=== PATIENT | female | born 1970 | race Caucasian/White ===

== ENCOUNTER → 2017-05-28 | Outpatient (CLI) | payer BC ==
[~2017-05-28] MED LIST: CYAN10005 PO; GABA-586 PO; NALT1TAB PO
--- NOTE | 2017-05-29 00:22 | PAIN ---
DATE OF SERVICE: 05/28/2017 INITIAL CONSULTATION CHIEF COMPLAINT: Neck and left upper extremity pain. HISTORY OF PRESENT ILLNESS: This is a 46-year-old female who presents with history of pain in the base of the neck and left shoulder for about 3 months now without any specific injury or accident she is aware of, but this became more painful as time went on starting in February of this year. The patient reports an increased pain in the base of the neck and in the bilateral shoulders, but in more than the left, radiating to the left arm, mostly anterior in the biceps and anterior forearm into the hand with all the fingers as well with numbness and tingling in the arm, intermittent in intensity, but always present with pain in the shoulder and neck; tingling and numbness in the left arm, aching quality as well with radiating pain on the left side. The patient reports no right-sided symptoms, reports it does not awaken her from sleep at night, does not affect her bowel or bladder control or ability to walk. She has been taking gabapentin, Lortab, naproxen; Lortab helps the most, but she has not had any for about 2-3 weeks. The patient reports no loss of motor function, but occasional fatigability in the left arm with activity. The patient did have an MRI scan of the cervical spine on 04/26/2017 showing C6-C7 broad-based disk extrusion with superior ____ in the ventral thecal sac with foraminal disk component, which results in moderate left greater than right stenosis. 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 PAST MEDICAL HISTORY: Significant for arthritis history, exercise-induced asthma, otherwise the patient has been in good health. PREVIOUS SURGERY: Includes total abdominal hysterectomy in 1984. CURRENT MEDICATIONS: Include vitamin B12, gabapentin and Contrave. ALLERGIES: The patient has no known drug allergies. FAMILY HISTORY: Significant for diabetes. 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 REVIEW OF SYSTEMS: The patient's review of systems is positive for those items mentioned in history of present illness. All systems reviewed and otherwise negative. It is complete, full and well documented on the patient's chart. PHYSICAL EXAMINATION: VITAL SIGNS: The patient's blood pressure is 122/84, pulse 70, respirations 18, temperature 98.1 degrees Fahrenheit, height is 5 feet 1 inch. Weight is 182 pounds. GENERAL: The patient is awake, alert, oriented, appropriate, very pleasant demeanor. HEENT: Head shows normocephalic, atraumatic. Extraocular movements are intact and symmetrical. Oral cavity, mucous membranes are moist and pink. Dentition is intact. NECK: Shows anterior throat supple without palpable lymphadenopathy noted. Swallow reflex is symmetrical. CHEST: Shows normal on inspection. Breath sounds are clear to auscultation bilaterally. HEART: Shows S1 and S2 clear. ABDOMEN: Soft, nontender, nondistended. No palpable organomegaly. No rebound or guarding demonstrated. BACK: Shows spine grossly midline. Normal appearing thoracic kyphosis, lumbar lordotic curvature and cervical lordotic curvature of the cervical paraspinous musculature shows some moderate tenderness with palpation, but only diffusely in the inferior aspect of the cervical paraspinous muscles as well as in the superior medial trapezius and lateral trapezius on the left and only the superior aspect on the right, but no trigger points or radiation of pain. The patient has full rotational motion of cervical spine, both laterally as well as extension and flexion with some minor tenderness reported with far left lateral rotation and extension at the same time, but not with forward flexion. Upper extremity showed deep tendon reflexes 2+ in the biceps and triceps tendons are equal. 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 Motor exam is intact with shoulder shrug as well without loss of strength on resistance. Abduction of shoulder 90 degrees is intact without loss of strength on resistance as well with some minor pain reported in the base of the left shoulder, but no radiation into the left arm with this maneuver. Peripheral pulses are 2+ in the radial distribution. No peripheral edema is noted. No clubbing or cyanosis. Upper extremities are warm and dry to touch, equal in color and appearance. IMPRESSION: 1. This is a 46-year-old female with a 3-month history of pain, base of the neck, left upper extremity in a radicular fashion. 2. MRI scan of cervical spine as noted. 3. History of arthritis. PLAN: Options were discussed with the patient including conservative medical management, physical therapy, interventional techniques and she would like to pursue most conservative course at this time. We discussed physical therapy renewal what she has done several sessions already. We will make the arrangements for this and send orders for renewal physical therapy. We discussed that if not significantly improved after about 3-week period of consistent physical therapy, may return for potential cervical epidural steroid injection at that time. The patient is interested in pursuing this if not better, we will make those arrangements and have her follow up at that time if necessary. LETTY KAUFMAN MD DR: KELECHI/woody JOB#: [id number] / [id number]
== END | disposition home or self-care (01) ==
LOC: PNCL 11:03
PROVIDERS: ATTEND Anesthesiology
DX: M50.30 Other cervical disc degeneration, unspecified cervical region (principal)
CPT/HCPCS: 99214

== ENCOUNTER 2020-01-15 13:03 | Inpatient (IN) | payer BC ==
[~2020-01-15] VITALS: Ht 154.9 cm; Wt 90.1 kg
[~2020-01-15 13:03] MED LIST changes: +CYAN-25 PO; -CYAN10005 PO; -GABA-586 PO; +GABA300C18 PO
--- NOTE | 2020-01-15 13:38 | RAD ---
CHEST AP ONLY History: Shortness of breath. COVID positive Comparison: None. Findings: Patchy left mid and bibasilar opacities. No pneumothorax. No pleural effusion. Normal heart size. Impression: 1. Patchy left mid and bibasilar opacities, can be seen with viral pneumonia. Electronically signed by: Andrzej Wallis DO (01/15/2020 1:35 PM) [id number]
[2020-01-15 13:48] LABS: BASO % 0 % (0-3); EOS % 0 % (0-3); HEMATOCRIT 41.6 % (36.0-47.0); HEMOGLOBIN 13.8 g/dL (12.0-15.5); LYMPH # 0.8 x10^3/uL (1.0-4.8); LYMPH % 11 % (24-48); MEAN CORPUSCULAR HEMOGLOBIN 28 pg (25-35); MEAN CORPUSCULAR HGB CONC 33 g/dL (31-37); MEAN CORPUSCULAR VOLUME 86 fL (79-100); MONO # 0.5 x10^3/uL (0.0-1.1); MONO % 7 % (0-9); NEUT # 5.8 x10^3/uL (1.8-7.7); NEUT % 82 % (31-73); PLATELET COUNT 316 x10^3/uL (140-400); RED BLOOD COUNT 4.86 x10^6/uL (3.50-5.40); RED CELL DISTRIBUTION WIDTH 14.1 % (11.5-14.5); WHITE BLOOD COUNT 7.1 x10^3/uL (4.0-11.0)
[2020-01-15 14:27] LABS: CALCIUM 8.4 mg/dL (8.5-10.1); CREATININE 0.8 mg/dL (0.6-1.0); GFR 76.2; POTASSIUM 3.7 mmol/L (3.5-5.1)
[2020-01-15 14:41] LABS: ALBUMIN 3.3 g/dL (3.4-5.0); ALBUMIN/GLOBULIN RATIO 0.9 (1.0-1.7); TOTAL BILIRUBIN 0.2 mg/dL (0.2-1.0); TOTAL PROTEIN 6.8 g/dL (6.4-8.2)
--- NOTE | 2020-01-15 14:42 | PHYS DOC ---
Past Medical History Past Medical History: Asthma, Other Additional Past Medical Histor: + COVID-19 Past Surgical History: Hysterectomy, Other Additional Past Surgical Histo: D&C Smoking Status: Never Smoker Alcohol Use: None Adult General Chief Complaint Chief Complaint: SHORTNESS OF BREATH HPI HPI Patient is a 49 year old presents with a chief complaint of shortness of b reath. Patient states she was diagnosed with covid 19 on January 08. Symptoms included body aches and fever. Patient was tested at [facility] on the and + test resulted on the . Today patient states she started to feel short of breath. Review of Systems Review of Systems Constitutional: Positive fever Eyes: Denies change in visual acuity, redness, or eye pain [] HENT: Denies nasal congestion or sore throat [] Respiratory: Positive shortness of breath Cardiovascular: No additional information not addressed in HPI [] GI: Denies abdominal pain, nausea, vomiting, bloody stools or diarrhea [] : Denies dysuria or hematuria [] Musculoskeletal: Denies back pain or joint pain [] Integument: Denies rash or skin lesions [] Neurologic: Denies headache, focal weakness or sensory changes [] Endocrine: Denies polyuria or polydipsia [] All other systems were reviewed and found to be within normal limits, except as documented in this note. Allergies Allergies Allergies Coded Allergies Type Severity Reaction Last Updated Verified No Known Drug Allergies 05/28/17 No Physical Exam Physical Exam Constitutional: Well developed, well nourished, no acute distress, non-toxic appearance. [] HENT: Normocephalic, atraumatic, bilateral external ears normal, oropharynx moist, no oral exudates, nose normal. [] Eyes: PERRLA, EOMI, conjunctiva normal, no discharge. [] Neck: Normal range of motion, no tenderness, supple, no stridor. [] Cardiovascular:Heart rate regular rhythm, no murmur [] Lungs & Thorax: Bilateral breath sounds clear to auscultation [] Abdomen: Bowel sounds normal, soft, no tenderness, no masses, no pulsatile masses. [] Skin: Warm, dry, no erythema, no rash. [] Back: No tenderness, no CVA tenderness. [] Extremities: No tenderness, no cyanosis, no clubbing, ROM intact, no edema. [] Neurologic: Alert and oriented X 3, normal motor function, normal sensory function, no focal deficits noted. [] Psychologic: Affect normal, judgement normal, mood normal. [] Current Patient Data Vital Signs Vital Signs Date Time Temp Pulse Resp B/P (MAP) Pulse Ox O2 Delivery O2 Flow Rate FiO2 01/15/20 14:55 102 108/64 (79) 93 Nasal Cannula 2.0 01/15/20 13:13 99.3 21 99.3 Lab Values Laboratory Tests Test 01/15/20 13:36 01/15/20 14:11 White Blood Count 7.1 x10^3/uL (4.0-11.0) Red Blood Count 4.86 x10^6/uL (3.50-5.40) Hemoglobin 13.8 g/dL (12.0-15.5) Hematocrit 41.6 % (36.0-47.0) Mean Corpuscular Volume 86 fL (79-100) Mean Corpuscular Hemoglobin 28 pg (25-35) Mean Corpuscular Hemoglobin Concent 33 g/dL (31-37) Red Cell Distribution Width 14.1 % (11.5-14.5) Platelet Count 316 x10^3/uL (140-400) Neutrophils (%) (Auto) 82 % (31-73) H Lymphocytes (%) (Auto) 11 % (24-48) L Monocytes (%) (Auto) 7 % (0-9) Eosinophils (%) (Auto) 0 % (0-3) Basophils (%) (Auto) 0 % (0-3) Neutrophils # (Auto) 5.8 x10^3/uL (1.8-7.7) Lymphocytes # (Auto) 0.8 x10^3/uL (1.0-4.8) L Monocytes # (Auto) 0.5 x10^3/uL (0.0-1.1) Eosinophils # (Auto) 0.0 x10^3/uL (0.0-0.7) Basophils # (Auto) 0.0 x10^3/uL (0.0-0.2) Sodium Level 138 mmol/L (136-145) Potassium Level 3.7 mmol/L (3.5-5.1) Chloride Level 103 mmol/L (98-107) Carbon Dioxide Level 24 mmol/L (21-32) Anion Gap 11 (6-14) Blood Urea Nitrogen 8 mg/dL (7-20) Creatinine 0.8 mg/dL (0.6-1.0) Estimated GFR (Cockcroft-Gault) 76.2 BUN/Creatinine Ratio 10 (6-20) Glucose Level 112 mg/dL (70-99) H Calcium Level 8.4 mg/dL (8.5-10.1) L Total Bilirubin 0.2 mg/dL (0.2-1.0) Aspartate Amino Transferase (AST) 66 U/L (15-37) H Alanine Aminotransferase (ALT) 60 U/L (14-59) H Alkaline Phosphatase 94 U/L (46-116) Total Protein 6.8 g/dL (6.4-8.2) Albumin 3.3 g/dL (3.4-5.0) L Albumin/Globulin Ratio 0.9 (1.0-1.7) L Laboratory Tests 01/15/20 13:36 Laboratory Tests 01/15/20 14:11 EKG EKG [] Radiology/Procedures Radiology/Procedures [] Impressions: Impression: 1. Patchy left mid and bibasilar opacities, can be seen with viral pneumonia. Course & Med Decision Making Course & Med Decision Making Pertinent Labs and Imaging studies reviewed. (See chart for details) [] Patient was evaluated for chief complaint. Work-up consisted of laboratory analysis and radiologic imaging. Results reviewed and discussed with patient. Patient tested positive for covid at [facility]. Patient admitted to Dr. Harris with a consult to pulmonology. Discussed patient with Dr Norris who recommends treatment with Rocphin Zithromax and Plaquenil. Dragon Disclaimer Dragon Disclaimer This electronic medical record was generated, in whole or in part, using a voice recognition dictation system. Departure Departure Referrals: UNKNOWN PCP NAME (PCP) KATHY SALEH DO Jan 15, 2020 14:42
--- NOTE | 2020-01-15 14:47 | PDOC1 ---
History and Physical Date of Admission Date of Admission DATE: 01/15/20 TIME: 14:47 Identification/Chief Complaint Chief Complaint seen in er with chief complaint of shortness of breath. at [facility] she was diagnosed with covid 19 on January 08. Symptoms included body aches and fever. Patient was tested at [facility] on the and + test resulted on the . Today patient states she started to feel short of breath. Past Medical History Past Medical History Past Medical History Past Medical History: Asthma, Other Additional Past Medical Histor: + COVID-19 Past Surgical History: Hysterectomy, Other Additional Past Surgical Histo: D&C Smoking Status: Never Smoker Alcohol Use: None fhx obesity GI: No pertinent hx Family History Family History: Hypertension Social History Smoke: No ALCOHOL: none Drugs: None Current Medications Current Medications Active Scripts Active Reported Vitamin B-12 (Cyanocobalamin (Vitamin B-12)) 1,000 Mcg Tablet 1 Tab PO WEEKLY Gabapentin 300 Mg Capsule 300 Mg PO HS Contrave ER 8-90 mg Tablet (Naltrexone HCl/Bupropion HCl) 1 Each Tablet.er 2 Each PO BID Allergies Allergies: Coded Allergies: No Known Drug Allergies (Unverified , 05/28/17) ROS Review of System Review of Systems Review of Systems Constitutional: Denies fever or chills [] POS MYALGIAS Eyes: Denies change in visual acuity, redness, or eye pain [] HENT: Denies nasal congestion or sore throat [] Respiratory: POS shortness of breath [] Cardiovascular: No additional information not addressed in HPI [] GI: Denies abdominal pain, nausea, vomiting, bloody stools or diarrhea [] : Denies dysuria or hematuria [] Musculoskeletal: Denies back pain or joint pain [] Integument: Denies rash or skin lesions [] Neurologic: Denies headache, focal weakness or sensory changes [] Endocrine: Denies polyuria or polydipsia [] 14 PT systems were reviewed and found to be within normal limits, except as documented General: YES: Fatigue ALLERGY AND IMMUNOLOGY: No: Hives, Insect Bite Sensitivity, Itchy/Watery Eyes, Nasal Congestion, Post Nasal Drip, Seasonal Allergies, Other Hematological and Lymphatic: No: Bleeding Problems, Blood Clots, Blood Transfusions, Brusing, Night Sweats, Pallor, Swollen Lymph Nodes, Other Physical Exam Physical Exam Physical Exam Physical Exam Constitutional: Well developed, well nourished, no acute distress, non-toxic appearance. [] OBESE HENT: Normocephalic, atraumatic, bilateral external ears normal, oropharynx moist, no oral exudates, nose normal. [] Eyes: PERRLA, EOMI, conjunctiva normal, no discharge. [] Neck: Normal range of motion, no tenderness, supple, no stridor. [] Cardiovascular:Heart rate regular rhythm, no murmur [] Lungs & Thorax: Bilateral breath sounds clear to auscultation [] Abdomen: Bowel sounds normal, soft, no tenderness, no masses, no pulsatile masses. [] Skin: Warm, dry, no erythema, no rash. [] Back: No tenderness, no CVA tenderness. [] Extremities: No tenderness, no cyanosis, no clubbing, ROM intact, no edema. [] Neurologic: Alert and oriented X 3, normal motor function, normal sensory function, no focal deficits noted. [] Psychologic: Affect normal, judgement normal, mood normal. [] General: Alert, Oriented X3, Cooperative, No acute distress HEENT: EOMI Breasts: Not examined Abdomen: Normal bowel sounds, Soft Rectal Exam: not examined PELVIC: Examination not indicated Extremities: No cyanosis Neuro: Normal speech, Cranial nerves 3-12 NL Psych/Mental Status: Mental status NL, Mood NL Vitals Vitals Vital Signs Date Time Temp Pulse Resp B/P (MAP) Pulse Ox O2 Delivery O2 Flow Rate FiO2 01/15/20 13:13 99.3 116 21 90 Room Air 99.3 Labs Labs Laboratory Tests Test 01/15/20 13:36 01/15/20 14:11 White Blood Count 7.1 x10^3/uL (4.0-11.0) Red Blood Count 4.86 x10^6/uL (3.50-5.40) Hemoglobin 13.8 g/dL (12.0-15.5) Hematocrit 41.6 % (36.0-47.0) Mean Corpuscular Volume 86 fL (79-100) Mean Corpuscular Hemoglobin 28 pg (25-35) Mean Corpuscular Hemoglobin Concent 33 g/dL (31-37) Red Cell Distribution Width 14.1 % (11.5-14.5) Platelet Count 316 x10^3/uL (140-400) Neutrophils (%) (Auto) 82 % (31-73) Lymphocytes (%) (Auto) 11 % (24-48) Monocytes (%) (Auto) 7 % (0-9) Eosinophils (%) (Auto) 0 % (0-3) Basophils (%) (Auto) 0 % (0-3) Neutrophils # (Auto) 5.8 x10^3/uL (1.8-7.7) Lymphocytes # (Auto) 0.8 x10^3/uL (1.0-4.8) Monocytes # (Auto) 0.5 x10^3/uL (0.0-1.1) Eosinophils # (Auto) 0.0 x10^3/uL (0.0-0.7) Basophils # (Auto) 0.0 x10^3/uL (0.0-0.2) Sodium Level 138 mmol/L (136-145) Potassium Level 3.7 mmol/L (3.5-5.1) Chloride Level 103 mmol/L (98-107) Carbon Dioxide Level 24 mmol/L (21-32) Anion Gap 11 (6-14) Blood Urea Nitrogen 8 mg/dL (7-20) Creatinine 0.8 mg/dL (0.6-1.0) Estimated GFR (Cockcroft-Gault) 76.2 BUN/Creatinine Ratio 10 (6-20) Glucose Level 112 mg/dL (70-99) Calcium Level 8.4 mg/dL (8.5-10.1) Total Bilirubin 0.2 mg/dL (0.2-1.0) Aspartate Amino Transf (AST/SGOT) 66 U/L (15-37) Alanine Aminotransferase (ALT/SGPT) 60 U/L (14-59) Alkaline Phosphatase 94 U/L (46-116) Total Protein 6.8 g/dL (6.4-8.2) Albumin 3.3 g/dL (3.4-5.0) Albumin/Globulin Ratio 0.9 (1.0-1.7) Laboratory Tests Test 01/15/20 13:36 01/15/20 14:11 White Blood Count 7.1 x10^3/uL (4.0-11.0) Red Blood Count 4.86 x10^6/uL (3.50-5.40) Hemoglobin 13.8 g/dL (12.0-15.5) Hematocrit 41.6 % (36.0-47.0) Mean Corpuscular Volume 86 fL (79-100) Mean Corpuscular Hemoglobin 28 pg (25-35) Mean Corpuscular Hemoglobin Concent 33 g/dL (31-37) Red Cell Distribution Width 14.1 % (11.5-14.5) Platelet Count 316 x10^3/uL (140-400) Neutrophils (%) (Auto) 82 % (31-73) Lymphocytes (%) (Auto) 11 % (24-48) Monocytes (%) (Auto) 7 % (0-9) Eosinophils (%) (Auto) 0 % (0-3) Basophils (%) (Auto) 0 % (0-3) Neutrophils # (Auto) 5.8 x10^3/uL (1.8-7.7) Lymphocytes # (Auto) 0.8 x10^3/uL (1.0-4.8) Monocytes # (Auto) 0.5 x10^3/uL (0.0-1.1) Eosinophils # (Auto) 0.0 x10^3/uL (0.0-0.7) Basophils # (Auto) 0.0 x10^3/uL (0.0-0.2) Sodium Level 138 mmol/L (136-145) Potassium Level 3.7 mmol/L (3.5-5.1) Chloride Level 103 mmol/L (98-107) Carbon Dioxide Level 24 mmol/L (21-32) Anion Gap 11 (6-14) Blood Urea Nitrogen 8 mg/dL (7-20) Creatinine 0.8 mg/dL (0.6-1.0) Estimated GFR (Cockcroft-Gault) 76.2 BUN/Creatinine Ratio 10 (6-20) Glucose Level 112 mg/dL (70-99) Calcium Level 8.4 mg/dL (8.5-10.1) Total Bilirubin 0.2 mg/dL (0.2-1.0) Aspartate Amino Transf (AST/SGOT) 66 U/L (15-37) Alanine Aminotransferase (ALT/SGPT) 60 U/L (14-59) Alkaline Phosphatase 94 U/L (46-116) Total Protein 6.8 g/dL (6.4-8.2) Albumin 3.3 g/dL (3.4-5.0) Albumin/Globulin Ratio 0.9 (1.0-1.7) Images Images CHEST AP ONLY History: Shortness of breath. COVID positive Comparison: None. Findings: Patchy left mid and bibasilar opacities. No pneumothorax. No pleural effusion. Normal heart size. Impression: 1. Patchy left mid and bibasilar opacities, can be seen with viral pneumonia. Electronically signed by: David Heller DO (01/15/2020 1:35 PM) [id number] DICTATED and SIGNED BY: DAVID HELLER DO DATE: 01/15/20 1335 VTE Prophylaxis Ordered VTE Prophylaxis Devices: No VTE Pharmacological Prophylaxi: Yes Assessment/Plan Assessment/Plan Impression: 1. Patchy left mid and bibasilar opacities,C/W COVID-19 viral pneumonia. 2. ACUTE HYPOXIC RESP FAILURE 3. COVID-19 POS AG 4. HX ASTHMA PLAN ADMIT EMPERIC IV ZOSYN CONSULT PULM DVT PROPHYLAXIS DUONEBS QID O2 SUPPORT 35 MIN CC TIME CARO SOLIS MD Jan 15, 2020 14:47
[2020-01-15] MEDS ORDERED: SODIUM PHOSPHATES 19/7GM 133 ML ENEMA. PR PRN (15:45)
[2020-01-15] MEDS ORDERED: cloNIDine HCL 0.1 MG TABLET PO PRN (15:45)
[2020-01-15] MEDS ORDERED: DOCUSATE SODIUM 100 MG CAPSULE. PO PRN (15:45)
[2020-01-15] MEDS ORDERED: 0.9 % SODIUM CHLORIDE 10 ML DISP.SYRIN. IV PRN (15:45)
[2020-01-15] MEDS ORDERED: MAG HYDROX/ALUMINUM HYD/SIMETH 30 ML ORAL.SUSP PO PRN (15:45)
[2020-01-15] MEDS: IV NORMAL SALINE 1000ML BAG 1,000 ML IV SCH ×2 (16:09→23:04)
[2020-01-15] MEDS: PIPERACILLIN/TAZOBACTAM 3.375 GM in IV NORMAL SALINE 50ML 50 ML IV SCH ×2 (16:09→23:03)
[2020-01-15] MEDS: ENOXAPARIN 40 MG/0.4 ML SYRINGE. SQ SCH (16:09)
[2020-01-15] MEDS ORDERED: HYDROXYCHLOROQUINE 200 MG TABLET PO ONE (16:15)
[2020-01-15 16:17] VITALS: BP 135/68
[2020-01-15] MEDS ORDERED: ALBU2.5V8 IH (16:35)
[2020-01-15] MEDS ORDERED: ESTR0.45 PO (16:35)
[2020-01-15] MEDS ORDERED: CETI10TA16 PO (16:35)
[2020-01-15] MEDS ORDERED: FLUT10.6 IH (16:35)
[2020-01-15] MEDS: ACETAMINOPHEN 325 MG TABLET. PO PRN ×2 (16:40→23:59)
[2020-01-15] MEDS: ONDANSETRON PF 4 MG/2 ML VIAL. IV PRN (16:40)
[2020-01-15] MEDS ORDERED: FLUT12AE IH (16:49)
[2020-01-15 19:10] VITALS: BP 110/63
[2020-01-15] MEDS: guaiFENesin ORAL 200 MG/10 ML LIQUID. PO PRN ×2 (19:43→23:03)
[2020-01-15] MEDS: ALBUTEROL SULFATE 2.5 MG/3 ML NEBU. NEB PRN (21:14)
[2020-01-15] MEDS: LORazepam 0.5 MG TABLET PO PRN (23:03)
[2020-01-15 23:15] VITALS: BP 137/63
[2020-01-15] MEDS: HYDROcodone/APAP 5/325MG 1 TAB TABLET PO PRN (23:53)
[2020-01-16 03:17] VITALS: BP 105/57
[2020-01-16 05:20] LABS: BASO % 0 % (0-3); EOS % 0 % (0-3); HEMATOCRIT 37.2 % (36.0-47.0); HEMOGLOBIN 12.2 g/dL (12.0-15.5); LYMPH # 1.2 x10^3/uL (1.0-4.8); LYMPH % 24 % (24-48); MEAN CORPUSCULAR HEMOGLOBIN 28 pg (25-35); MEAN CORPUSCULAR HGB CONC 33 g/dL (31-37); MEAN CORPUSCULAR VOLUME 86 fL (79-100); MONO # 0.5 x10^3/uL (0.0-1.1); MONO % 11 % (0-9); NEUT # 3.2 x10^3/uL (1.8-7.7); NEUT % 64 % (31-73); PLATELET COUNT 278 x10^3/uL (140-400); RED BLOOD COUNT 4.31 x10^6/uL (3.50-5.40)
[2020-01-16 05:39] LABS: ALBUMIN 2.8 g/dL (3.4-5.0); ALBUMIN/GLOBULIN RATIO 0.8 (1.0-1.7); CALCIUM 8.1 mg/dL (8.5-10.1); CREATININE 0.8 mg/dL (0.6-1.0); GFR 76.2; POTASSIUM 3.6 mmol/L (3.5-5.1); TOTAL BILIRUBIN 0.2 mg/dL (0.2-1.0); TOTAL PROTEIN 6.1 g/dL (6.4-8.2)
[2020-01-16] MEDS: PIPERACILLIN/TAZOBACTAM 3.375 GM in IV NORMAL SALINE 50ML 50 ML IV SCH ×4 (06:03→23:40)
[2020-01-16] MEDS: guaiFENesin ORAL 200 MG/10 ML LIQUID. PO PRN (06:14)
[2020-01-16 07:45] VITALS: BP 106/59
[2020-01-16] MEDS: ONDANSETRON PF 4 MG/2 ML VIAL. IV PRN ×4 (08:24→20:38)
[2020-01-16] MEDS: HYDROcodone/APAP 5/325MG 1 TAB TABLET PO PRN ×2 (08:24→20:37)
[2020-01-16] MEDS: IV NORMAL SALINE 1000ML BAG 1,000 ML IV SCH ×4 (08:25→19:06)
[2020-01-16] MEDS: ALBUTEROL SULFATE 2.5 MG/3 ML NEBU. NEB PRN ×2 (08:55→21:15)
[2020-01-16 10:46] VITALS: BP 108/66
--- NOTE | 2020-01-16 11:32 | PDOC2 ---
Pulmonary Consultation This is a very pleasant 49-year-old female who presents to the emergency department for increasing shortness of breath, headache, generalized fatigue, fever, outpatient positive COVID 19 testing. She reports that her symptoms began on January 062019 she reports that shortly getting off work approximately 6:30 PM she began developing chills and generalized intense body aches. She reports that she her fever at home T-max was 100.3. She report s that she then went to the [facility] at the [facility] where she had a chest x-ray which was negative influenza was negative and her urinalysis was negative she was tested for Covid19. She reports that on Friday she refused a phone call from a physician at [facility] stating that she had tested positive for COVID-19. 19 19. She reports that approximately 2 to 3 days ago she began having severe headache, fever, chills, shortness of breath at rest on exertion and a nonproductive cough. She reports that she has an underlying history of asthma and her shortness of breath was unresolved with home use of her Flovent and albuterol nebulized treatments. She presented to the emergency department was found to be hypoxic requiring 4 L nasal cannula she was started on Zosyn and Plaquenil. She also reports that she was admitted in October to [facility] with an acute exacerbation and at that point time had tested positive for RSV. She is very anxious about her current clinical situation and is concerned that she might require mechanical ventilation at some point. Upon examination she is resting comfortably in bed on 4 L nasal cannula without any acute signs and symptoms of distress. She denies any chest pain, abdominal pain, nausea, vomiting, changes in bowel or bladder. She does report a severe headache, generalized malaise, body aches, fever, chills, nonproductive cough and shortness of breath at rest and on exertion. Medical History Asthma Miscarriage Seasonal allergies Surgical History D&C, hysterectomy in 1994 Medications Current Medications Sodium Chloride (Normal Saline Flush) 3 ml QSHIFT PRN IV AFTER MEDS AND BLOOD DRAWS; Start 01/15/20 at 15:45 Sodium Chloride 1,000 ml @ 100 mls/hr Q10H IV Last administered on 01/16/20at 08:25; Start 01/15/20 at 15:40 Ondansetron HCl (Zofran) 4 mg PRN Q4HRS PRN IV NAUSEA/VOMITING Last administered on 01/16/20at 08:24; Start 01/15/20 at 15:45 Acetaminophen (Tylenol) 650 mg PRN Q4HRS PRN PO TEMP OVER 100.4F OR MILD PAIN Last administered on 01/15/20at 23:59; Start 01/15/20 at 15:45 Al Hydroxide/Mg Hydroxide (Mylanta Plus Xs) 30 ml PRN DAILY PRN PO HEARTBURN / GAS; Start 01/15/20 at 15:45 Clonidine HCl (Catapres) 0.1 mg PRN Q6HRS PRN PO SBP>160 OR DBP>90; Start 01/15/20 at 15:45 Sodium Monofluorophosphate (Fleet Adult) 133 ml PRN DAILY PRN [place] CONSTIPATION; Start 01/15/20 at 15:45 Docusate Sodium (Colace) 100 mg PRN BID PRN PO CONSTIPATION; Start 01/15/20 at 15:45 Albuterol Sulfate (Ventolin Neb Soln) 2.5 mg PRN Q4HRS PRN NEB SHORTNESS OF BREATH Last administered on 01/16/20at 08:55; Start 01/15/20 at 15:45; Stop 01/16/20 at 11:22; Status DC Guaifenesin (Robitussin) 200 mg PRN Q4HRS PRN PO COUGH Last administered on 01/16/20at 06:14; Start 01/15/20 at 15:45; Stop 01/16/20 at 11:22; Status DC Lorazepam (Ativan) 0.5 mg PRN Q4HRS PRN PO ANXIETY / AGITATION Last administered on 01/15/20at 23:03; Start 01/15/20 at 15:45 Enoxaparin Sodium (Lovenox 40mg Syringe) 40 mg Q24H SQ Last administered on 01/15/20at 16:09; Start 01/15/20 at 16:00 Piperacillin Sod/ Tazobactam Sod 3.375 gm/Sodium Chloride 50 ml @ 100 mls/hr Q6HRS IV Last administered on 01/16/20at 06:03; Start 01/15/20 at 16:00 Hydroxychloroquine Sulfate (Plaquenil) 400 mg 1X ONCE PO Last administered on 01/15/20at 16:15; Start 01/15/20 at 16:15; Stop 01/15/20 at 16:16; Status DC Acetaminophen/ Hydrocodone Bitart (Lortab 5/325) 1 tab PRN Q4HRS PRN PO MODERATE PAIN 4-6 Last administered on 01/16/20at 08:24; Start 01/15/20 at 23:30 Albuterol Sulfate (Ventolin Neb Soln) 2.5 mg QID PRN NEB SHORTNESS OF BREATH; Start 01/16/20 at 11:30; Status UNV Azithromycin 500 mg/Sodium Chloride 250 ml @ 250 mls/hr Q24H IV ; Start 01/16/20 at 11:30; Status UNV Throat Lozenges (Cepacol Sore Throat Lozenge) 1 salima PRN Q2HRS PRN PO SORE THROAT; Start 01/16/20 at 11:30; Status UNV Guaifenesin/ Codeine Phosphate (Robitussin Ac) 5 ml PRN Q6HRS PRN PO COUGH; Start 01/16/20 at 11:30; Status UNV Hydroxychloroquine Sulfate (Plaquenil) 200 mg BID PO ; Start 01/16/20 at 21:00; Status UNV Active Scripts Active Reported Flovent 110MCG Hfa (Fluticasone Propionate) 12 Gm Aer.w.adap 2 Puff IH BID Proair Hfa Inhaler (Albuterol Sulfate) 8.5 Gm Hfa.aer.ad 2 Puff IH PRN Q4-6HRS PRN 21 Days Cetirizine Hcl 10 Mg Tablet 1 Tab PO DAILY Premarin (Estrogens, Conjugated) 0.45 Mg Tablet 1 Tab PO DAILY Allergies Allergies Coded Allergies Type Severity Reaction Last Updated Verified No Known Drug Allergies 05/28/17 No Social History 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 Lives at home with her and children. Denies any tobacco use denies any alcohol use denies any recreational drug use. Family History Mother is alive with a history of end-stage renal disease, hypertension and diabetes. Father is alive with a history of coronary artery disease and diabetes. She has 2 siblings who are reported to be healthy. She has 2 children one with a history positive for asthma. System Review 14 point review of systems is reviewed with the patient is negative except for pertinent positives in the HPI. Constitutional fever eyes no changes in visual acuity HEENT no nasal congestion no sore throat pulmonary as indicated above cardiovascular no chest pain no pressure GI no nausea vomiting diarrhea no dysuria frequency musculoskeletal no localized muscle aches or joint pain skin no new skin rashes neurologic no headaches diplopia or blurred vision Vital Signs Vital Signs Date Time Temp Pulse Resp B/P (MAP) Pulse Ox O2 Delivery O2 Flow Rate FiO2 01/16/20 10:46 99.0 86 24 108/66 (80) 91 Nasal Cannula 5.0 99.0 Last Labs Laboratory Tests Test 01/15/20 13:36 01/15/20 14:11 01/16/20 05:00 White Blood Count 7.1 x10^3/uL (4.0-11.0) 5.0 x10^3/uL (4.0-11.0) Red Blood Count 4.86 x10^6/uL (3.50-5.40) 4.31 x10^6/uL (3.50-5.40) Hemoglobin 13.8 g/dL (12.0-15.5) 12.2 g/dL (12.0-15.5) Hematocrit 41.6 % (36.0-47.0) 37.2 % (36.0-47.0) Mean Corpuscular Volume 86 fL (79-100) 86 fL (79-100) Mean Corpuscular Hemoglobin 28 pg (25-35) 28 pg (25-35) Mean Corpuscular Hemoglobin Concent 33 g/dL (31-37) 33 g/dL (31-37) Red Cell Distribution Width 14.1 % (11.5-14.5) 14.0 % (11.5-14.5) Platelet Count 316 x10^3/uL (140-400) 278 x10^3/uL (140-400) Neutrophils (%) (Auto) 82 % (31-73) 64 % (31-73) Lymphocytes (%) (Auto) 11 % (24-48) 24 % (24-48) Monocytes (%) (Auto) 7 % (0-9) 11 % (0-9) Eosinophils (%) (Auto) 0 % (0-3) 0 % (0-3) Basophils (%) (Auto) 0 % (0-3) 0 % (0-3) Neutrophils # (Auto) 5.8 x10^3/uL (1.8-7.7) 3.2 x10^3/uL (1.8-7.7) Lymphocytes # (Auto) 0.8 x10^3/uL (1.0-4.8) 1.2 x10^3/uL (1.0-4.8) Monocytes # (Auto) 0.5 x10^3/uL (0.0-1.1) 0.5 x10^3/uL (0.0-1.1) Eosinophils # (Auto) 0.0 x10^3/uL (0.0-0.7) 0.0 x10^3/uL (0.0-0.7) Basophils # (Auto) 0.0 x10^3/uL (0.0-0.2) 0.0 x10^3/uL (0.0-0.2) Sodium Level 138 mmol/L (136-145) 142 mmol/L (136-145) Potassium Level 3.7 mmol/L (3.5-5.1) 3.6 mmol/L (3.5-5.1) Chloride Level 103 mmol/L (98-107) 107 mmol/L (98-107) Carbon Dioxide Level 24 mmol/L (21-32) 26 mmol/L (21-32) Anion Gap 11 (6-14) 9 (6-14) Blood Urea Nitrogen 8 mg/dL (7-20) 8 mg/dL (7-20) Creatinine 0.8 mg/dL (0.6-1.0) 0.8 mg/dL (0.6-1.0) Estimated GFR (Cockcroft-Gault) 76.2 76.2 BUN/Creatinine Ratio 10 (6-20) 10 (6-20) Glucose Level 112 mg/dL (70-99) 101 mg/dL (70-99) Calcium Level 8.4 mg/dL (8.5-10.1) 8.1 mg/dL (8.5-10.1) Total Bilirubin 0.2 mg/dL (0.2-1.0) 0.2 mg/dL (0.2-1.0) Aspartate Amino Transf (AST/SGOT) 66 U/L (15-37) 54 U/L (15-37) Alanine Aminotransferase (ALT/SGPT) 60 U/L (14-59) 48 U/L (14-59) Alkaline Phosphatase 94 U/L (46-116) 76 U/L (46-116) Total Protein 6.8 g/dL (6.4-8.2) 6.1 g/dL (6.4-8.2) Albumin 3.3 g/dL (3.4-5.0) 2.8 g/dL (3.4-5.0) Albumin/Globulin Ratio 0.9 (1.0-1.7) 0.8 (1.0-1.7) Exam Comments PHYSICAL EXAMINATION: VITALS: Within normal limits and are stable. GENERAL: No apparent distress. Alert and oriented. HEENT: Normal cephalic atraumatic, external auditory canals are patent EYES: Extraocular muscles are intact, pupils are equally round and reactive to light and accommodation MUSKULOSKELETAL: Well developed, well nourished, good range of motion NECK: Supple, no JVD, no thyromegaly was noted. LUNGS: She has some crackles BLL HEART: RRR, S1, S2 present. Peripheral pulses intact, no murmur ABDOMEN: Soft, nontender. Positive bowel sounds no organomegaly, normal bowel sounds. EXTREMITIES: Without any cyanosis, clubbing, or edema. radial pulses +2 NEUROLOGIC: She does not talk, she just stares. PSYCHIATRIC: Normal affect, normal mood. mild anxiety SKIN: No ulcerations or rashes, good skin turgor, no jaundice. Chest X-rays CXR 01/15/2020 Impression: 1. Patchy left mid and bibasilar opacities, can be seen with viral pneumonia. Assessment Acute hypoxic respiratory failure, viral pneumonia Positive COVID19 Cough Fever Myalgia Asthma Anxiety Mild transaminitis Plan Supplemental oxygen as needed to keep oxygen saturations greater than 92% Bronchodilators PRN and scheduled Symptomatic treatment of fever and cough Zosyn, add azithromycin continue Plaquenil Follow clinical course Anxiety per PCP Monitor LFTs, improved on today's labs D/W RN DVT/GI PPX GREGORY TSANG MD Jan 16, 2020 11:32
[2020-01-16] MEDS: BENZOCAINE/MENTHOL LOZENGE. PO PRN ×3 (11:51→20:17)
[2020-01-16] MEDS: guaiFENesin/CODEINE 100mg/10mg 5 ML LIQUID PO PRN ×2 (11:51→19:06)
[2020-01-16] MEDS: AZITHROMYCIN 500 MG in IV NORMAL SALINE 250ML 250 ML IV SCH (11:51)
[2020-01-16] MEDS: HYDROXYCHLOROQUINE 200 MG TABLET PO SCH ×2 (11:53→20:17)
[2020-01-16] MEDS: LORazepam 0.5 MG TABLET PO PRN ×3 (13:07→20:37)
[2020-01-16 14:05] VITALS: BP 136/78
--- NOTE | 2020-01-16 14:32 | PDOC ---
PROGRESS NOTES History of Present Illness History of Present Illness VTE Prophylaxis Ordered VTE Prophylaxis Devices: No VTE Pharmacological Prophylaxi: Yes Assessment/Plan Assessment/Plan Impression: 1. Patchy left mid and bibasilar opacities,C/W COVID-19 viral pneumonia. t max 101.6 01/14 pm 2. ACUTE HYPOXIC RESP FAILURE 3. COVID-19 POS AG at outside facility 4. HX ASTHMA PLAN ADMIT IV ZOSYN plus azithromycin continue Plaquenil 200mg po bid x 8 doses CONSULT PULM DVT PROPHYLAXIS DUONEBS QID O2 SUPPORT resp isolation protocol 37 MIN CC TIME Vitals Vitals Vital Signs Date Time Temp Pulse Resp B/P (MAP) Pulse Ox O2 Delivery O2 Flow Rate FiO2 01/16/20 14:05 99.4 79 24 136/78 (97) 93 Nasal Cannula 5.0 99.4 Physical Exam General: Alert, Oriented X3, Cooperative, No acute distress, mild distress Heart: Regular rate, Normal S1, No murmurs Lungs: Crackles Abdomen: Normal bowel sounds, Soft, No tenderness, No hepatosplenomegaly Extremities: No cyanosis, No edema, Normal pulses Labs LABS CHEST AP ONLY History: Shortness of breath. COVID positive Comparison: None. Findings: Patchy left mid and bibasilar opacities. No pneumothorax. No pleural effusion. Normal heart size. Impression: 1. Patchy left mid and bibasilar opacities, can be seen with viral pneumonia. Electronically signed by: Andrzej Heller DO (01/15/2020 1:35 PM) [id number] DICTATED and SIGNED BY: ANDRZEJ HELLER DO DATE: 01/15/20 1335 Laboratory Tests Test 01/16/20 05:00 White Blood Count 5.0 x10^3/uL (4.0-11.0) Red Blood Count 4.31 x10^6/uL (3.50-5.40) Hemoglobin 12.2 g/dL (12.0-15.5) Hematocrit 37.2 % (36.0-47.0) Mean Corpuscular Volume 86 fL (79-100) Mean Corpuscular Hemoglobin 28 pg (25-35) Mean Corpuscular Hemoglobin Concent 33 g/dL (31-37) Red Cell Distribution Width 14.0 % (11.5-14.5) Platelet Count 278 x10^3/uL (140-400) Neutrophils (%) (Auto) 64 % (31-73) Lymphocytes (%) (Auto) 24 % (24-48) Monocytes (%) (Auto) 11 % (0-9) Eosinophils (%) (Auto) 0 % (0-3) Basophils (%) (Auto) 0 % (0-3) Neutrophils # (Auto) 3.2 x10^3/uL (1.8-7.7) Lymphocytes # (Auto) 1.2 x10^3/uL (1.0-4.8) Monocytes # (Auto) 0.5 x10^3/uL (0.0-1.1) Eosinophils # (Auto) 0.0 x10^3/uL (0.0-0.7) Basophils # (Auto) 0.0 x10^3/uL (0.0-0.2) Sodium Level 142 mmol/L (136-145) Potassium Level 3.6 mmol/L (3.5-5.1) Chloride Level 107 mmol/L (98-107) Carbon Dioxide Level 26 mmol/L (21-32) Anion Gap 9 (6-14) Blood Urea Nitrogen 8 mg/dL (7-20) Creatinine 0.8 mg/dL (0.6-1.0) Estimated GFR (Cockcroft-Gault) 76.2 BUN/Creatinine Ratio 10 (6-20) Glucose Level 101 mg/dL (70-99) Calcium Level 8.1 mg/dL (8.5-10.1) Total Bilirubin 0.2 mg/dL (0.2-1.0) Aspartate Amino Transf (AST/SGOT) 54 U/L (15-37) Alanine Aminotransferase (ALT/SGPT) 48 U/L (14-59) Alkaline Phosphatase 76 U/L (46-116) Total Protein 6.1 g/dL (6.4-8.2) Albumin 2.8 g/dL (3.4-5.0) Albumin/Globulin Ratio 0.8 (1.0-1.7) Assessment and Plan Assessmemt and Plan Problems Medical Problems: (1) COVID-19 Status: Acute (2) Dyspnea Status: Acute Comment Review of Relevant I have reviewed the following items augusto (where applicable) has been applied. Labs Laboratory Tests Test 01/15/20 13:36 01/15/20 14:11 01/16/20 05:00 White Blood Count 7.1 x10^3/uL (4.0-11.0) 5.0 x10^3/uL (4.0-11.0) Red Blood Count 4.86 x10^6/uL (3.50-5.40) 4.31 x10^6/uL (3.50-5.40) Hemoglobin 13.8 g/dL (12.0-15.5) 12.2 g/dL (12.0-15.5) Hematocrit 41.6 % (36.0-47.0) 37.2 % (36.0-47.0) Mean Corpuscular Volume 86 fL (79-100) 86 fL (79-100) Mean Corpuscular Hemoglobin 28 pg (25-35) 28 pg (25-35) Mean Corpuscular Hemoglobin Concent 33 g/dL (31-37) 33 g/dL (31-37) Red Cell Distribution Width 14.1 % (11.5-14.5) 14.0 % (11.5-14.5) Platelet Count 316 x10^3/uL (140-400) 278 x10^3/uL (140-400) Neutrophils (%) (Auto) 82 % (31-73) 64 % (31-73) Lymphocytes (%) (Auto) 11 % (24-48) 24 % (24-48) Monocytes (%) (Auto) 7 % (0-9) 11 % (0-9) Eosinophils (%) (Auto) 0 % (0-3) 0 % (0-3) Basophils (%) (Auto) 0 % (0-3) 0 % (0-3) Neutrophils # (Auto) 5.8 x10^3/uL (1.8-7.7) 3.2 x10^3/uL (1.8-7.7) Lymphocytes # (Auto) 0.8 x10^3/uL (1.0-4.8) 1.2 x10^3/uL (1.0-4.8) Monocytes # (Auto) 0.5 x10^3/uL (0.0-1.1) 0.5 x10^3/uL (0.0-1.1) Eosinophils # (Auto) 0.0 x10^3/uL (0.0-0.7) 0.0 x10^3/uL (0.0-0.7) Basophils # (Auto) 0.0 x10^3/uL (0.0-0.2) 0.0 x10^3/uL (0.0-0.2) Sodium Level 138 mmol/L (136-145) 142 mmol/L (136-145) Potassium Level 3.7 mmol/L (3.5-5.1) 3.6 mmol/L (3.5-5.1) Chloride Level 103 mmol/L (98-107) 107 mmol/L (98-107) Carbon Dioxide Level 24 mmol/L (21-32) 26 mmol/L (21-32) Anion Gap 11 (6-14) 9 (6-14) Blood Urea Nitrogen 8 mg/dL (7-20) 8 mg/dL (7-20) Creatinine 0.8 mg/dL (0.6-1.0) 0.8 mg/dL (0.6-1.0) Estimated GFR (Cockcroft-Gault) 76.2 76.2 BUN/Creatinine Ratio 10 (6-20) 10 (6-20) Glucose Level 112 mg/dL (70-99) 101 mg/dL (70-99) Calcium Level 8.4 mg/dL (8.5-10.1) 8.1 mg/dL (8.5-10.1) Total Bilirubin 0.2 mg/dL (0.2-1.0) 0.2 mg/dL (0.2-1.0) Aspartate Amino Transf (AST/SGOT) 66 U/L (15-37) 54 U/L (15-37) Alanine Aminotransferase (ALT/SGPT) 60 U/L (14-59) 48 U/L (14-59) Alkaline Phosphatase 94 U/L (46-116) 76 U/L (46-116) Total Protein 6.8 g/dL (6.4-8.2) 6.1 g/dL (6.4-8.2) Albumin 3.3 g/dL (3.4-5.0) 2.8 g/dL (3.4-5.0) Albumin/Globulin Ratio 0.9 (1.0-1.7) 0.8 (1.0-1.7) Laboratory Tests Test 01/16/20 05:00 White Blood Count 5.0 x10^3/uL (4.0-11.0) Red Blood Count 4.31 x10^6/uL (3.50-5.40) Hemoglobin 12.2 g/dL (12.0-15.5) Hematocrit 37.2 % (36.0-47.0) Mean Corpuscular Volume 86 fL (79-100) Mean Corpuscular Hemoglobin 28 pg (25-35) Mean Corpuscular Hemoglobin Concent 33 g/dL (31-37) Red Cell Distribution Width 14.0 % (11.5-14.5) Platelet Count 278 x10^3/uL (140-400) Neutrophils (%) (Auto) 64 % (31-73) Lymphocytes (%) (Auto) 24 % (24-48) Monocytes (%) (Auto) 11 % (0-9) Eosinophils (%) (Auto) 0 % (0-3) Basophils (%) (Auto) 0 % (0-3) Neutrophils # (Auto) 3.2 x10^3/uL (1.8-7.7) Lymphocytes # (Auto) 1.2 x10^3/uL (1.0-4.8) Monocytes # (Auto) 0.5 x10^3/uL (0.0-1.1) Eosinophils # (Auto) 0.0 x10^3/uL (0.0-0.7) Basophils # (Auto) 0.0 x10^3/uL (0.0-0.2) Sodium Level 142 mmol/L (136-145) Potassium Level 3.6 mmol/L (3.5-5.1) Chloride Level 107 mmol/L (98-107) Carbon Dioxide Level 26 mmol/L (21-32) Anion Gap 9 (6-14) Blood Urea Nitrogen 8 mg/dL (7-20) Creatinine 0.8 mg/dL (0.6-1.0) Estimated GFR (Cockcroft-Gault) 76.2 BUN/Creatinine Ratio 10 (6-20) Glucose Level 101 mg/dL (70-99) Calcium Level 8.1 mg/dL (8.5-10.1) Total Bilirubin 0.2 mg/dL (0.2-1.0) Aspartate Amino Transf (AST/SGOT) 54 U/L (15-37) Alanine Aminotransferase (ALT/SGPT) 48 U/L (14-59) Alkaline Phosphatase 76 U/L (46-116) Total Protein 6.1 g/dL (6.4-8.2) Albumin 2.8 g/dL (3.4-5.0) Albumin/Globulin Ratio 0.8 (1.0-1.7) Medications Current Medications Sodium Chloride (Normal Saline Flush) 3 ml QSHIFT PRN IV AFTER MEDS AND BLOOD DRAWS; Start 01/15/20 at 15:45 Sodium Chloride 1,000 ml @ 100 mls/hr Q10H IV Last administered on 01/16/20at 08:25; Start 01/15/20 at 15:40 Ondansetron HCl (Zofran) 4 mg PRN Q4HRS PRN IV NAUSEA/VOMITING Last administered on 01/16/20at 13:07; Start 01/15/20 at 15:45 Acetaminophen (Tylenol) 650 mg PRN Q4HRS PRN PO TEMP OVER 100.4F OR MILD PAIN Last administered on 01/15/20at 23:59; Start 01/15/20 at 15:45 Al Hydroxide/Mg Hydroxide (Mylanta Plus Xs) 30 ml PRN DAILY PRN PO HEARTBURN / GAS; Start 01/15/20 at 15:45 Clonidine HCl (Catapres) 0.1 mg PRN Q6HRS PRN PO SBP>160 OR DBP>90; Start 01/15/20 at 15:45 Sodium Monofluorophosphate (Fleet Adult) 133 ml PRN DAILY PRN [place] CONSTIPATION; Start 01/15/20 at 15:45 Docusate Sodium (Colace) 100 mg PRN BID PRN PO CONSTIPATION; Start 01/15/20 at 15:45 Albuterol Sulfate (Ventolin Neb Soln) 2.5 mg PRN Q4HRS PRN NEB SHORTNESS OF BREATH Last administered on 01/16/20at 08:55; Start 01/15/20 at 15:45; Stop 01/16/20 at 11:22; Status DC Guaifenesin (Robitussin) 200 mg PRN Q4HRS PRN PO COUGH Last administered on 01/16/20 06:14; Start 01/15/20 at 15:45; Stop 01/16/20 at 11:22; Status DC Lorazepam (Ativan) 0.5 mg PRN Q4HRS PRN PO ANXIETY / AGITATION Last administered on 01/16/20 13:07; Start 01/15/20 at 15:45 Enoxaparin Sodium (Lovenox 40mg Syringe) 40 mg Q24H SQ Last administered on 01/15/20at 16:09; Start 01/15/20 at 16:00 Piperacillin Sod/ Tazobactam Sod 3.375 gm/Sodium Chloride 50 ml @ 100 mls/hr Q6HRS IV Last administered on 01/16/20 13:07; Start 01/15/20 at 16:00 Hydroxychloroquine Sulfate (Plaquenil) 400 mg 1X ONCE PO Last administered on 01/15/20 16:15; Start 01/15/20 at 16:15; Stop 01/15/20 at 16:16; Status DC Acetaminophen/ Hydrocodone Bitart (Lortab 5/325) 1 tab PRN Q4HRS PRN PO MODERATE PAIN 4-6 Last administered on 01/16/20 08:24; Start 01/15/20 at 23:30 Albuterol Sulfate (Ventolin Neb Soln) 2.5 mg PRN QID PRN NEB SHORTNESS OF BREATH; Start 01/16/20 at 11:30 Azithromycin 500 mg/Sodium Chloride 250 ml @ 250 mls/hr Q24H IV Last administered on 01/16/20at 11:51; Start 01/16/20 at 12:00 Throat Lozenges (Cepacol Sore Throat Lozenge) 1 salima PRN Q2HRS PRN PO SORE THROAT Last administered on 01/16/20at 11:51; Start 01/16/20 at 11:30 Guaifenesin/ Codeine Phosphate (Robitussin Ac) 5 ml PRN Q6HRS PRN PO COUGH Last administered on 01/16/20 11:51; Start 01/16/20 at 11:30 Hydroxychloroquine Sulfate (Plaquenil) 200 mg BID PO Last administered on 01/16/20at 11:53; Start 01/16/20 at 12:00; Stop 01/19/20 at 21:01 Active Scripts Active Reported Flovent 110MCG Hfa (Fluticasone Propionate) 12 Gm Aer.w.adap 2 Puff IH BID Proair Hfa Inhaler (Albuterol Sulfate) 8.5 Gm Hfa.aer.ad 2 Puff IH PRN Q4-6HRS PRN 21 Days Cetirizine Hcl 10 Mg Tablet 1 Tab PO DAILY Premarin (Estrogens, Conjugated) 0.45 Mg Tablet 1 Tab PO DAILY Vitals/I & O Vital Sign - Last 24 Hours 01/15/20 01/15/20 01/15/20 01/15/20 14:55 15:25 16:17 16:53 Temp 101.6 101.6 Pulse 102 106 108 Resp 18 B/P (MAP) 108/64 (79) 112/64 (80) 135/68 (90) Pulse Ox 93 93 93 O2 Delivery Nasal Cannula Nasal Cannula Nasal Cannula Nasal Cannula O2 Flow Rate 2.0 2.0 2.0 2.0 01/15/20 01/15/20 01/15/20 01/15/20 19:10 19:30 21:11 23:15 Temp 99.3 100.1 99.3 100.1 Pulse 95 89 Resp B/P (MAP) 110/63 (79) 137/63 (87) Pulse Ox 94 94 91 O2 Delivery Nasal Cannula Nasal Cannula Nasal Cannula Nasal Cannula O2 Flow Rate 2.0 2.0 3.0 3.0 01/15/20 01/16/20 01/16/20 01/16/20 23:53 03:17 07:45 07:52 Temp 99.8 98.4 99.8 98.4 Pulse 82 95 Resp 24 B/P (MAP) 105/57 (73) 106/59 (75) Pulse Ox 90 94 98 O2 Delivery Nasal Cannula Nasal Cannula Nasal Cannula Nasal Cannula O2 Flow Rate 3.0 5.0 5.0 5.0 01/16/20 01/16/20 01/16/20 01/16/20 08:24 09:24 09:54 10:46 Temp 99.0 99.0 Pulse 86 Resp 18 24 B/P (MAP) 108/66 (80) Pulse Ox 98 98 94 91 O2 Delivery Nasal Cannula Nasal Cannula Nasal Cannula Nasal Cannula O2 Flow Rate 5.0 5.0 3.0 5.0 01/16/20 14:05 Temp 99.4 99.4 Pulse 79 Resp 24 B/P (MAP) 136/78 (97) Pulse Ox 93 O2 Delivery Nasal Cannula O2 Flow Rate 5.0 Intake and Output 01/15/20 01/15/20 01/16/20 15:00 23:00 07:00 Intake Total 0 ml 914 ml Balance 0 ml 914 ml CARO SOLIS MD Jan 16, 2020 14:32
[2020-01-16] MEDS ORDERED: IV NORMAL SALINE 500ML BAG 500 ML IV PRN (15:00)
[2020-01-16] MEDS: ENOXAPARIN 40 MG/0.4 ML SYRINGE. SQ SCH (17:16)
[2020-01-16 19:50] VITALS: BP 109/67
[2020-01-16] MEDS: LACTOBACILLUS RHAMNOSUS GG 1 CAPSULE. PO SCH (20:17)
[2020-01-16] MEDS: ACETAMINOPHEN 325 MG TABLET. PO PRN (20:17)
[2020-01-16 21:08] LABS: PROTHROMBIN TIME PATIENT 12.9 SEC (11.7-14.0)
[2020-01-16 21:11] LABS: D-DIMER 0.46 ug/mlFEU (0.00-0.50)
[2020-01-16 22:01] LABS: BILIRUBIN,URINE NEGATIVE (NEG); CLARITY,URINE CLEAR; COLOR,URINE YELLOW; NITRITE,URINE NEGATIVE (NEG); PH,URINE 5.5 (<5.0-8.0); PROTEIN,URINE 30 mg/dL (NEG-TRACE); UROBILINOGEN,URINE 0.2 mg/dL (0.2 mg/dL)
[2020-01-16 22:11] LABS: BACTERIA,URINE 0 /HPF (0-FEW); RBC,URINE OCC /HPF (0-2); SQUAMOUS EPITHELIAL CELL,UR MOD /LPF; WBC,URINE OCC /HPF (0-4)
[2020-01-16 23:45] VITALS: BP 124/65
[2020-01-17] VITALS (11 sets, daily range): BP systolic 86–173; BP diastolic 55–100
[2020-01-17] MEDS: PIPERACILLIN/TAZOBACTAM 3.375 GM in IV NORMAL SALINE 50ML 50 ML IV SCH ×3 (06:00→18:00)
[2020-01-17] MEDS: IV NORMAL SALINE 1000ML BAG 1,000 ML IV SCH ×2 (06:01→15:53)
--- NOTE | 2020-01-17 07:45 | EKG ---
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
--- NOTE | 2020-01-17 08:34 | PDOC ---
PULMONARY PROGRESS NOTES Subjective Patient worse today increasingly short of air increasing cough T-max 101 Vitals Vital Signs Date Time Temp Pulse Resp B/P (MAP) Pulse Ox O2 Delivery O2 Flow Rate FiO2 01/17/20 04:50 92 Nasal Cannula 8.0 01/17/20 03:50 101.0 107 24 109/59 (76) 101.0 ROS: No Nausea, No Chest Pain, No Abdominal Pain Lungs: Crackles Cardiovascular: S1, S2 Abdomen: Soft Neuro Exam: Alert Extremities: No Edema Skin: Warm Labs Laboratory Tests Test 01/15/20 13:36 01/15/20 14:11 01/16/20 05:00 01/16/20 20:25 White Blood Count 7.1 x10^3/uL (4.0-11.0) 5.0 x10^3/uL (4.0-11.0) Red Blood Count 4.86 x10^6/uL (3.50-5.40) 4.31 x10^6/uL (3.50-5.40) Hemoglobin 13.8 g/dL (12.0-15.5) 12.2 g/dL (12.0-15.5) Hematocrit 41.6 % (36.0-47.0) 37.2 % (36.0-47.0) Mean Corpuscular Volume 86 fL (79-100) 86 fL (79-100) Mean Corpuscular Hemoglobin 28 pg (25-35) 28 pg (25-35) Mean Corpuscular Hemoglobin Concent 33 g/dL (31-37) 33 g/dL (31-37) Red Cell Distribution Width 14.1 % (11.5-14.5) 14.0 % (11.5-14.5) Platelet Count 316 x10^3/uL (140-400) 278 x10^3/uL (140-400) Neutrophils (%) (Auto) 82 % (31-73) 64 % (31-73) Lymphocytes (%) (Auto) 11 % (24-48) 24 % (24-48) Monocytes (%) (Auto) 7 % (0-9) 11 % (0-9) Eosinophils (%) (Auto) 0 % (0-3) 0 % (0-3) Basophils (%) (Auto) 0 % (0-3) 0 % (0-3) Neutrophils # (Auto) 5.8 x10^3/uL (1.8-7.7) 3.2 x10^3/uL (1.8-7.7) Lymphocytes # (Auto) 0.8 x10^3/uL (1.0-4.8) 1.2 x10^3/uL (1.0-4.8) Monocytes # (Auto) 0.5 x10^3/uL (0.0-1.1) 0.5 x10^3/uL (0.0-1.1) Eosinophils # (Auto) 0.0 x10^3/uL (0.0-0.7) 0.0 x10^3/uL (0.0-0.7) Basophils # (Auto) 0.0 x10^3/uL (0.0-0.2) 0.0 x10^3/uL (0.0-0.2) Sodium Level 138 mmol/L (136-145) 142 mmol/L (136-145) Potassium Level 3.7 mmol/L (3.5-5.1) 3.6 mmol/L (3.5-5.1) Chloride Level 103 mmol/L (98-107) 107 mmol/L (98-107) Carbon Dioxide Level 24 mmol/L (21-32) 26 mmol/L (21-32) Anion Gap 11 (6-14) 9 (6-14) Blood Urea Nitrogen 8 mg/dL (7-20) 8 mg/dL (7-20) Creatinine 0.8 mg/dL (0.6-1.0) 0.8 mg/dL (0.6-1.0) Estimated GFR (Cockcroft-Gault) 76.2 76.2 BUN/Creatinine Ratio 10 (6-20) 10 (6-20) Glucose Level 112 mg/dL (70-99) 101 mg/dL (70-99) Calcium Level 8.4 mg/dL (8.5-10.1) 8.1 mg/dL (8.5-10.1) Total Bilirubin 0.2 mg/dL (0.2-1.0) 0.2 mg/dL (0.2-1.0) Aspartate Amino Transf (AST/SGOT) 66 U/L (15-37) 54 U/L (15-37) Alanine Aminotransferase (ALT/SGPT) 60 U/L (14-59) 48 U/L (14-59) Alkaline Phosphatase 94 U/L (46-116) 76 U/L (46-116) Total Protein 6.8 g/dL (6.4-8.2) 6.1 g/dL (6.4-8.2) Albumin 3.3 g/dL (3.4-5.0) 2.8 g/dL (3.4-5.0) Albumin/Globulin Ratio 0.9 (1.0-1.7) 0.8 (1.0-1.7) Procalcitonin < 0.10 ng/mL (0.00-0.10) Prothrombin Time 12.9 SEC (11.7-14.0) Prothromb Time International Ratio 1.0 (0.8-1.1) Activated Partial Thromboplast Time 39 SEC (24-38) Fibrinogen 536 mg/dL (200-440) D-Dimer (Fabby) 0.46 ug/mlFEU (0.00-0.50) Test 01/16/20 21:00 Urine Collection Type Unknown Urine Color Yellow Urine Clarity Clear Urine pH 5.5 (<5.0-8.0) Urine Specific [place] 1.025 (1.000-1.030) Urine Protein 30 mg/dL (NEG-TRACE) Urine Glucose (UA) Negative mg/dL (NEG) Urine Ketones (Stick) Negative mg/dL (NEG) Urine Blood Negative (NEG) Urine Nitrite Negative (NEG) Urine Bilirubin Negative (NEG) Urine Urobilinogen Dipstick 0.2 mg/dL (0.2 mg/dL) Urine Leukocyte Esterase Negative (NEG) Urine RBC Occ /HPF (0-2) Urine WBC Occ /HPF (0-4) Urine Squamous Epithelial Cells Mod /LPF Urine Bacteria 0 /HPF (0-FEW) Laboratory Tests Test 01/16/20 20:25 01/16/20 21:00 Prothrombin Time 12.9 SEC (11.7-14.0) Prothromb Time International Ratio 1.0 (0.8-1.1) Activated Partial Thromboplast Time 39 SEC (24-38) Fibrinogen 536 mg/dL (200-440) D-Dimer (Fabby) 0.46 ug/mlFEU (0.00-0.50) Urine Collection Type Unknown Urine Color Yellow Urine Clarity Clear Urine pH 5.5 (<5.0-8.0) Urine Specific [place] 1.025 (1.000-1.030) Urine Protein 30 mg/dL (NEG-TRACE) Urine Glucose (UA) Negative mg/dL (NEG) Urine Ketones (Stick) Negative mg/dL (NEG) Urine Blood Negative (NEG) Urine Nitrite Negative (NEG) Urine Bilirubin Negative (NEG) Urine Urobilinogen Dipstick 0.2 mg/dL (0.2 mg/dL) Urine Leukocyte Esterase Negative (NEG) Urine RBC Occ /HPF (0-2) Urine WBC Occ /HPF (0-4) Urine Squamous Epithelial Cells Mod /LPF Urine Bacteria 0 /HPF (0-FEW) Medications Active Scripts Medications Dose Route/Sig Max Daily Dose Days Date Category Flovent 110MCG Hfa (Fluticasone Propionate) 12 Gm Aer.w.adap 2 Puff IH BID 01/15/20 Reported Proair Hfa Inhaler (Albuterol Sulfate) 8.5 Gm Hfa.aer.ad 2 Puff IH PRN Q4-6HRS PRN 21 01/15/20 Reported Cetirizine Hcl 10 Mg Tablet 1 Tab PO DAILY 01/15/20 Reported Premarin (Estrogens, Conjugated) 0.45 Mg Tablet 1 Tab PO DAILY 01/15/20 Reported Impression . Acute hypoxic respiratory failure, viral pneumonia, possible bacterial pneumonia Positive COVID19 Cough, paroxysm Fever Myalgia Asthma Anxiety Mild transaminitis Plan . Supplemental oxygen as needed to keep oxygen saturations greater than 92% Bronchodilators PRN and scheduled Symptomatic treatment of fever and cough Zosyn, add azithromycin continue Plaquenil Follow clinical course Anxiety per PCP Monitor LFTs, improved on today's labs We will continue current support, patient significantly more short of air today continues to be febrile GREGORY TSANG MD Jan 17, 2020 08:34
[2020-01-17] MEDS: HYDROXYCHLOROQUINE 200 MG TABLET PO SCH ×2 (08:37→23:22)
[2020-01-17] MEDS: LACTOBACILLUS RHAMNOSUS GG 1 CAPSULE. PO SCH ×3 (08:37→23:22)
[2020-01-17] MEDS: ONDANSETRON PF 4 MG/2 ML VIAL. IV PRN (09:30)
[2020-01-17] MEDS: LORazepam 0.5 MG TABLET PO PRN (09:30)
[2020-01-17] MEDS: HYDROcodone/APAP 5/325MG 1 TAB TABLET PO PRN (09:31)
[2020-01-17] MEDS: guaiFENesin/CODEINE 100mg/10mg 5 ML LIQUID PO PRN (09:31)
[2020-01-17] MEDS: ALBUTEROL SULFATE 2.5 MG/3 ML NEBU. NEB PRN (10:19)
--- NOTE | 2020-01-17 11:31 | PDOC ---
PROGRESS NOTES History of Present Illness History of Present Illness VTE Prophylaxis Ordered VTE Prophylaxis Devices: No VTE Pharmacological Prophylaxi: Yes Assessment/Plan Assessment/Plan Impression: 1. Patchy left mid and bibasilar opacities,C/W COVID-19 viral pneumonia. t max 101.6 3 pm 2. ACUTE HYPOXIC RESP FAILURE 3. COVID-19 POS AG at outside facility 4. HX ASTHMA PLAN ADMIT IV ZOSYN plus azithromycin continue Plaquenil 200mg po bid x 8 doses CONSULT PULM DVT PROPHYLAXIS DUONEBS QID O2 SUPPORT resp isolation protocol 32 MIN CC TIME Vitals Vitals Vital Signs Date Time Temp Pulse Resp B/P (MAP) Pulse Ox O2 Delivery O2 Flow Rate FiO2 01/17/20 10:31 20 92 Nasal Cannula 8.0 01/17/20 07:00 99.3 89 114/62 (79) 99.3 Physical Exam General: Alert, Oriented X3, Cooperative, No acute distress, mild distress Heart: Regular rate, Normal S1, No murmurs Lungs: Crackles Abdomen: Normal bowel sounds, Soft, No tenderness, No hepatosplenomegaly Extremities: No cyanosis, No edema, Normal pulses Skin: No rashes, No significant lesion Labs LABS Laboratory Tests Test 01/16/20 20:25 01/16/20 21:00 Prothrombin Time 12.9 SEC (11.7-14.0) Prothromb Time International Ratio 1.0 (0.8-1.1) Activated Partial Thromboplast Time 39 SEC (24-38) Fibrinogen 536 mg/dL (200-440) D-Dimer (Fabby) 0.46 ug/mlFEU (0.00-0.50) Urine Collection Type Unknown Urine Color Yellow Urine Clarity Clear Urine pH 5.5 (<5.0-8.0) Urine Specific [place] 1.025 (1.000-1.030) Urine Protein 30 mg/dL (NEG-TRACE) Urine Glucose (UA) Negative mg/dL (NEG) Urine Ketones (Stick) Negative mg/dL (NEG) Urine Blood Negative (NEG) Urine Nitrite Negative (NEG) Urine Bilirubin Negative (NEG) Urine Urobilinogen Dipstick 0.2 mg/dL (0.2 mg/dL) Urine Leukocyte Esterase Negative (NEG) Urine RBC Occ /HPF (0-2) Urine WBC Occ /HPF (0-4) Urine Squamous Epithelial Cells Mod /LPF Urine Bacteria 0 /HPF (0-FEW) Assessment and Plan Assessmemt and Plan Problems Medical Problems: (1) COVID-19 Status: Acute (2) Dyspnea Status: Acute Comment Review of Relevant I have reviewed the following items augusto (where applicable) has been applied. Labs Laboratory Tests Test 01/15/20 13:36 01/15/20 14:11 01/16/20 05:00 01/16/20 20:25 White Blood Count 7.1 x10^3/uL (4.0-11.0) 5.0 x10^3/uL (4.0-11.0) Red Blood Count 4.86 x10^6/uL (3.50-5.40) 4.31 x10^6/uL (3.50-5.40) Hemoglobin 13.8 g/dL (12.0-15.5) 12.2 g/dL (12.0-15.5) Hematocrit 41.6 % (36.0-47.0) 37.2 % (36.0-47.0) Mean Corpuscular Volume 86 fL (79-100) 86 fL (79-100) Mean Corpuscular Hemoglobin 28 pg (25-35) 28 pg (25-35) Mean Corpuscular Hemoglobin Concent 33 g/dL (31-37) 33 g/dL (31-37) Red Cell Distribution Width 14.1 % (11.5-14.5) 14.0 % (11.5-14.5) Platelet Count 316 x10^3/uL (140-400) 278 x10^3/uL (140-400) Neutrophils (%) (Auto) 82 % (31-73) 64 % (31-73) Lymphocytes (%) (Auto) 11 % (24-48) 24 % (24-48) Monocytes (%) (Auto) 7 % (0-9) 11 % (0-9) Eosinophils (%) (Auto) 0 % (0-3) 0 % (0-3) Basophils (%) (Auto) 0 % (0-3) 0 % (0-3) Neutrophils # (Auto) 5.8 x10^3/uL (1.8-7.7) 3.2 x10^3/uL (1.8-7.7) Lymphocytes # (Auto) 0.8 x10^3/uL (1.0-4.8) 1.2 x10^3/uL (1.0-4.8) Monocytes # (Auto) 0.5 x10^3/uL (0.0-1.1) 0.5 x10^3/uL (0.0-1.1) Eosinophils # (Auto) 0.0 x10^3/uL (0.0-0.7) 0.0 x10^3/uL (0.0-0.7) Basophils # (Auto) 0.0 x10^3/uL (0.0-0.2) 0.0 x10^3/uL (0.0-0.2) Sodium Level 138 mmol/L (136-145) 142 mmol/L (136-145) Potassium Level 3.7 mmol/L (3.5-5.1) 3.6 mmol/L (3.5-5.1) Chloride Level 103 mmol/L (98-107) 107 mmol/L (98-107) Carbon Dioxide Level 24 mmol/L (21-32) 26 mmol/L (21-32) Anion Gap 11 (6-14) 9 (6-14) Blood Urea Nitrogen 8 mg/dL (7-20) 8 mg/dL (7-20) Creatinine 0.8 mg/dL (0.6-1.0) 0.8 mg/dL (0.6-1.0) Estimated GFR (Cockcroft-Gault) 76.2 76.2 BUN/Creatinine Ratio 10 (6-20) 10 (6-20) Glucose Level 112 mg/dL (70-99) 101 mg/dL (70-99) Calcium Level 8.4 mg/dL (8.5-10.1) 8.1 mg/dL (8.5-10.1) Total Bilirubin 0.2 mg/dL (0.2-1.0) 0.2 mg/dL (0.2-1.0) Aspartate Amino Transf (AST/SGOT) 66 U/L (15-37) 54 U/L (15-37) Alanine Aminotransferase (ALT/SGPT) 60 U/L (14-59) 48 U/L (14-59) Alkaline Phosphatase 94 U/L (46-116) 76 U/L (46-116) Total Protein 6.8 g/dL (6.4-8.2) 6.1 g/dL (6.4-8.2) Albumin 3.3 g/dL (3.4-5.0) 2.8 g/dL (3.4-5.0) Albumin/Globulin Ratio 0.9 (1.0-1.7) 0.8 (1.0-1.7) Procalcitonin < 0.10 ng/mL (0.00-0.10) Prothrombin Time 12.9 SEC (11.7-14.0) Prothromb Time International Ratio 1.0 (0.8-1.1) Activated Partial Thromboplast Time 39 SEC (24-38) Fibrinogen 536 mg/dL (200-440) D-Dimer (Fabby) 0.46 ug/mlFEU (0.00-0.50) Test 01/16/20 21:00 Urine Collection Type Unknown Urine Color Yellow Urine Clarity Clear Urine pH 5.5 (<5.0-8.0) Urine Specific [place] 1.025 (1.000-1.030) Urine Protein 30 mg/dL (NEG-TRACE) Urine Glucose (UA) Negative mg/dL (NEG) Urine Ketones (Stick) Negative mg/dL (NEG) Urine Blood Negative (NEG) Urine Nitrite Negative (NEG) Urine Bilirubin Negative (NEG) Urine Urobilinogen Dipstick 0.2 mg/dL (0.2 mg/dL) Urine Leukocyte Esterase Negative (NEG) Urine RBC Occ /HPF (0-2) Urine WBC Occ /HPF (0-4) Urine Squamous Epithelial Cells Mod /LPF Urine Bacteria 0 /HPF (0-FEW) Laboratory Tests Test 01/16/20 20:25 01/16/20 21:00 Prothrombin Time 12.9 SEC (11.7-14.0) Prothromb Time International Ratio 1.0 (0.8-1.1) Activated Partial Thromboplast Time 39 SEC (24-38) Fibrinogen 536 mg/dL (200-440) D-Dimer (Fabby) 0.46 ug/mlFEU (0.00-0.50) Urine Collection Type Unknown Urine Color Yellow Urine Clarity Clear Urine pH 5.5 (<5.0-8.0) Urine Specific [place] 1.025 (1.000-1.030) Urine Protein 30 mg/dL (NEG-TRACE) Urine Glucose (UA) Negative mg/dL (NEG) Urine Ketones (Stick) Negative mg/dL (NEG) Urine Blood Negative (NEG) Urine Nitrite Negative (NEG) Urine Bilirubin Negative (NEG) Urine Urobilinogen Dipstick 0.2 mg/dL (0.2 mg/dL) Urine Leukocyte Esterase Negative (NEG) Urine RBC Occ /HPF (0-2) Urine WBC Occ /HPF (0-4) Urine Squamous Epithelial Cells Mod /LPF Urine Bacteria 0 /HPF (0-FEW) Microbiology 01/16/20 Blood Culture - Preliminary, Resulted NO GROWTH AFTER 1 DAY Medications Current Medications Sodium Chloride (Normal Saline Flush) 3 ml QSHIFT PRN IV AFTER MEDS AND BLOOD DRAWS; Start 01/15/20 at 15:45 Sodium Chloride 1,000 ml @ 100 mls/hr Q10H IV Last administered on 01/17/20at 06:01; Start 01/15/20 at 15:40 Ondansetron HCl (Zofran) 4 mg PRN Q4HRS PRN IV NAUSEA/VOMITING Last administered on 01/17/20at 09:30; Start 01/15/20 at 15:45 Acetaminophen (Tylenol) 650 mg PRN Q4HRS PRN PO TEMP OVER 100.4F OR MILD PAIN Last administered on 01/16/20at 20:17; Start 01/15/20 at 15:45 Al Hydroxide/Mg Hydroxide (Mylanta Plus Xs) 30 ml PRN DAILY PRN PO HEARTBURN / GAS; Start 01/15/20 at 15:45 Clonidine HCl (Catapres) 0.1 mg PRN Q6HRS PRN PO SBP>160 OR DBP>90; Start at 15:45 Sodium Monofluorophosphate (Fleet Adult) 133 ml PRN DAILY PRN [place] CONSTIPATION; Start 01/15/20 at 15:45 Docusate Sodium (Colace) 100 mg PRN BID PRN PO CONSTIPATION; Start 01/15/20 at 15:45 Albuterol Sulfate (Ventolin Neb Soln) 2.5 mg PRN Q4HRS PRN NEB SHORTNESS OF BREATH Last administered on 01/16/20at 08:55; Start 01/15/20 at 15:45; Stop 01/16/20 at 11:22; Status DC Guaifenesin (Robitussin) 200 mg PRN Q4HRS PRN PO COUGH Last administered on 01/16/20at 06:14; Start 01/15/20 at 15:45; Stop 01/16/20 at 11:22; Status DC Lorazepam (Ativan) 0.5 mg PRN Q4HRS PRN PO ANXIETY / AGITATION Last administered on 01/17/20at 09:30; Start 01/15/20 at 15:45 Enoxaparin Sodium (Lovenox 40mg Syringe) 40 mg Q24H SQ Last administered on 01/16/20at 17:16; Start 01/15/20 at 16:00 Piperacillin Sod/ Tazobactam Sod 3.375 gm/Sodium Chloride 50 ml @ 100 mls/hr Q6HRS IV Last administered on 01/17/20at 06:00; Start 01/15/20 at 16:00 Hydroxychloroquine Sulfate (Plaquenil) 400 mg 1X ONCE PO Last administered on 01/15/20at 16:15; Start 01/15/20 at 16:15; Stop 01/15/20 at 16:16; Status DC Acetaminophen/ Hydrocodone Bitart (Lortab 5/325) 1 tab PRN Q4HRS PRN PO MODERATE PAIN 4-6 Last administered on 01/17/20at 09:31; Start 01/15/20 at 23:30 Albuterol Sulfate (Ventolin Neb Soln) 2.5 mg PRN QID PRN NEB SHORTNESS OF BREATH Last administered on 01/17/20at 10:19; Start 01/16/20 at 11:30 Azithromycin 500 mg/Sodium Chloride 250 ml @ 250 mls/hr Q24H IV Last administered on 01/16/20at 11:51; Start 01/16/20 at 12:00 Throat Lozenges (Cepacol Sore Throat Lozenge) 1 salima PRN Q2HRS PRN PO SORE THROAT Last administered on 01/16/20at 20:17; Start 01/16/20 at 11:30 Guaifenesin/ Codeine Phosphate (Robitussin Ac) 5 ml PRN Q6HRS PRN PO COUGH Last administered on 01/16/20at 19:06; Start 01/16/20 at 11:30; Stop 01/17/20 at 09:14; Status DC Hydroxychloroquine Sulfate (Plaquenil) 200 mg BID PO Last administered on 01/17/20at 08:37; Start 01/16/20 at 12:00; Stop 01/19/20 at 21:01 Sodium Chloride 1,000 ml @ 1,440 mls/hr Q42M IV ; Start 01/16/20 at 15:00; Stop 01/16/20 at 16:00; Status DC Sodium Chloride 500 ml @ 1,000 mls/hr PRN Q30MIN PRN IV SEE COMMENTS; Start 01/16/20 at 15:00 Lactobacillus Rhamnosus (Culturelle) 1 cap BID PO Last administered on 01/17/20at 08:37; Start 01/16/20 at 21:00 Guaifenesin/ Codeine Phosphate (Robitussin Ac) 5 ml PRN Q4HRS PRN PO COUGH Last administered on 01/17/20at 09:31; Start 01/17/20 at 09:15 Active Scripts Active Reported Flovent 110MCG Hfa (Fluticasone Propionate) 12 Gm Aer.w.adap 2 Puff IH BID Proair Hfa Inhaler (Albuterol Sulfate) 8.5 Gm Hfa.aer.ad 2 Puff IH PRN Q4-6HRS PRN 21 Days Cetirizine Hcl 10 Mg Tablet 1 Tab PO DAILY Premarin (Estrogens, Conjugated) 0.45 Mg Tablet 1 Tab PO DAILY Vitals/I & O Vital Sign - Last 24 Hours 01/16/20 01/16/20 01/16/20 01/16/20 14:05 15:00 19:50 20:30 Temp 99.4 102.1 99.4 102.1 Pulse 79 99 Resp 24 22 B/P (MAP) 136/78 (97) 109/67 (81) Pulse Ox 93 94 92 O2 Delivery Nasal Cannula Nasal Cannula Nasal Cannula Nasal Cannula O2 Flow Rate 5.0 4.0 5.0 6.0 01/16/20 01/16/20 01/16/20 01/16/20 20:37 21:15 21:37 23:45 Temp 99.1 99.1 Pulse 89 Resp 22 24 24 B/P (MAP) 124/65 (84) Pulse Ox 92 92 93 O2 Delivery Nasal Cannula Nasal Cannula Nasal Cannula Nasal Cannula O2 Flow Rate 5.0 6.0 6.0 8.0 01/17/20 01/17/20 01/17/20 01/17/20 03:50 04:50 07:00 08:00 Temp 101.0 99.3 101.0 99.3 Pulse 107 89 Resp 24 24 B/P (MAP) 109/59 (76) 114/62 (79) Pulse Ox 92 92 93 O2 Delivery Nasal Cannula Nasal Cannula Nasal Cannula Nasal Cannula O2 Flow Rate 8.0 8.0 8.0 8.0 01/17/20 01/17/20 01/17/20 09:31 10:19 10:31 Resp 20 20 Pulse Ox 92 95 92 O2 Delivery Nasal Cannula Nasal Cannula Nasal Cannula O2 Flow Rate 8.0 6.0 8.0 Intake and Output 01/16/20 01/16/20 01/17/20 15:00 23:00 07:00 Intake Total 500 ml 740 ml Output Total 150 ml 400 ml Balance 350 ml 340 ml CARO SOLIS MD Jan 17, 2020 11:31
[2020-01-17] MEDS: AZITHROMYCIN 500 MG in IV NORMAL SALINE 250ML 250 ML IV SCH (13:15)
[2020-01-17] MEDS: ENOXAPARIN 40 MG/0.4 ML SYRINGE. SQ SCH (15:49)
[2020-01-17 19:42] LABS: BASE EXCESS ABG 1 mmol/L (-3-3); HCO3 ABG 24 mmol/L (21-28); PCO2 ABG 35 mmHg (35-46); PO2 ABG 55 mmHg (75-108); SAT O2 ABG 91 % (92-99)
[2020-01-17 19:43] LABS: FIO2 ABG 52
[2020-01-17] MEDS ORDERED: SUCCINYLCHOLINE 200 MG/10 ML VIAL. ONE (20:12)
[2020-01-17] MEDS ORDERED: VECURONIUM BOLUS 10 MG VIAL. IV ONE (20:12)
[2020-01-17] MEDS ORDERED: fentaNYL PF VIAL 100 MCG/2 ML VIAL IV PRN ×2 (20:15)
[2020-01-17] MEDS ORDERED: ETOMIDATE 20 MG/10 ML VIAL. IV ONE (20:33)
[2020-01-17 21:10] LABS: BASE EXCESS ABG -1 mmol/L (-3-3); CORRECTED PCO2 ABG 46 mmHg; CORRECTED PH ABG 7.35; CORRECTED PO2 ABG 73 mmHg; HCO3 ABG 25 mmol/L (21-28); PCO2 ABG 44 mmHg (35-46); PO2 ABG 67 mmHg (75-108); SAT O2 ABG 93 % (92-99)
--- NOTE | 2020-01-17 21:17 | RAD ---
Single view chest dated 01/17/2020. Comparison made to 11/09/2014. Clinical data indication: Postintubation. FINDINGS: Single supine portable exam performed. Endotracheal tube tip approximately 3.6 cm above the level of [place]. There is an NG tube in place with tip terminating at the lower thoracic esophagus. Heart and mediastinal contours are stable. Patchy airspace disease throughout both lungs, left greater than right. There are rounded areas of consolidation in the right upper lobe left mid zone and right lower lobe no definite pleural effusion. No pneumothorax. IMPRESSION: 1. Patchy bilateral airspace disease, suspicious for pneumonia. Atypical infection not excluded. 2. Tubes and lines as described. The NG tube tip terminates near the level of the lower one third thoracic esophagus. Recommend repositioning. Electronically signed by: Cresencio Skaggs MD (01/17/2020 9:14 PM) [id number]
[2020-01-17 21:18] LABS: FIO2 ABG 100
--- NOTE | 2020-01-17 21:35 | PDOC ---
Provider Note Provider Note Anesthesia note: Requested for intubation of Covid 19 pt in respiratory failure. 7.5 OET with #3 Glidescope without difficulty. Positive color change on EtCO2 indicator, BSBE. Secured at 22cm at teeth by respiratory therapist. 20mg Etomidate and 100mg succynlcholine used to facilitate intubation. Chest Xray ordered Holly FOX CRNA Jan 17, 2020 21:35
[2020-01-18] VITALS (24 sets, daily range): BP systolic 83–99; BP diastolic 44–66
[2020-01-18] MEDS: PIPERACILLIN/TAZOBACTAM 3.375 GM in IV NORMAL SALINE 50ML 50 ML IV SCH ×4 (00:13→17:37)
[2020-01-18] MEDS: IV NORMAL SALINE 1000ML BAG 1,000 ML IV SCH ×3 (05:41→23:40)
--- NOTE | 2020-01-18 09:19 | PDOC ---
PULMONARY PROGRESS NOTES Subjective Intubated 01/16 due to worsening hypoxia/ respiratory distress AC mode, 80%FIO2 Vitals Vital Signs Date Time Temp Pulse Resp B/P (MAP) Pulse Ox O2 Delivery O2 Flow Rate FiO2 01/18/20 08:00 74 18 91/58 (69) 93 Ventilator 01/18/20 04:00 98.3 98.3 01/17/20 23:19 8.0 Comments Virtual exam done via telemedicine, Patient sedated, Intubated no respiratory distress No obvious rash, no leg edema ROS: No Nausea, No Chest Pain, No Abdominal Pain Extremities: No Edema Labs Laboratory Tests Test 01/16/20 20:25 01/16/20 21:00 01/17/20 19:36 01/17/20 21:08 Prothrombin Time 12.9 SEC (11.7-14.0) Prothromb Time International Ratio 1.0 (0.8-1.1) Activated Partial Thromboplast Time 39 SEC (24-38) Fibrinogen 536 mg/dL (200-440) D-Dimer (Fabby) 0.46 ug/mlFEU (0.00-0.50) Urine Collection Type Unknown Urine Color Yellow Urine Clarity Clear Urine pH 5.5 (<5.0-8.0) Urine Specific [place] 1.025 (1.000-1.030) Urine Protein 30 mg/dL (NEG-TRACE) Urine Glucose (UA) Negative mg/dL (NEG) Urine Ketones (Stick) Negative mg/dL (NEG) Urine Blood Negative (NEG) Urine Nitrite Negative (NEG) Urine Bilirubin Negative (NEG) Urine Urobilinogen Dipstick 0.2 mg/dL (0.2 mg/dL) Urine Leukocyte Esterase Negative (NEG) Urine RBC Occ /HPF (0-2) Urine WBC Occ /HPF (0-4) Urine Squamous Epithelial Cells Mod /LPF Urine Bacteria 0 /HPF (0-FEW) O2 Saturation 91 % (92-99) 93 % (92-99) Arterial Blood pH 7.46 (7.35-7.45) 7.37 (7.35-7.45) Arterial Blood pCO2 at Patient Temp 35 mmHg (35-46) 44 mmHg (35-46) Arterial Blood pO2 at Patient Temp 55 mmHg (75-108) 67 mmHg (75-108) Arterial Blood HCO3 24 mmol/L (21-28) 25 mmol/L (21-28) Arterial Blood Base Excess 1 mmol/L (-3-3) -1 mmol/L (-3-3) FiO2 52 100 Arterial Blood pH (Temp corrected) 7.35 Arterial Blood pCO2 (Temp correct) 46 mmHg Arterial Blood pO2 (Temp corrected) 73 mmHg Laboratory Tests Test 01/17/20 19:36 01/17/20 21:08 O2 Saturation 91 % (92-99) 93 % (92-99) Arterial Blood pH 7.46 (7.35-7.45) 7.37 (7.35-7.45) Arterial Blood pCO2 at Patient Temp 35 mmHg (35-46) 44 mmHg (35-46) Arterial Blood pO2 at Patient Temp 55 mmHg (75-108) 67 mmHg (75-108) Arterial Blood HCO3 24 mmol/L (21-28) 25 mmol/L (-28) Arterial Blood Base Excess 1 mmol/L (-3-3) -1 mmol/L (-3-3) FiO2 52 100 Arterial Blood pH (Temp corrected) 7.35 Arterial Blood pCO2 (Temp correct) 46 mmHg Arterial Blood pO2 (Temp corrected) 73 mmHg Medications Active Scripts Medications Dose Route/Sig Max Daily Dose Days Date Category Flovent 110MCG Hfa (Fluticasone Propionate) 12 Gm Aer.w.adap 2 Puff IH BID 01/15/20 Reported Proair Hfa Inhaler (Albuterol Sulfate) 8.5 Gm Hfa.aer.ad 2 Puff IH PRN Q4-6HRS PRN 21 01/15/20 Reported Cetirizine Hcl 10 Mg Tablet 1 Tab PO DAILY 01/15/20 Reported Premarin (Estrogens, Conjugated) 0.45 Mg Tablet 1 Tab PO DAILY 01/15/20 Reported Comments cxr 01/16 Patchy bilateral infiltrates Impression . Acute hypoxic respiratory failure due to COVID-19 pneumonia/ ARDS Positive COVID19 Bilateral infiltrates due to COVID19 pneumonia, less likely superimposed bacterial pneumonia ( Procal normal) underlying Asthma Mild transaminitis Plan . AC mode, low TV, high PEEP. keep oxygen saturations greater than 92% Follow ABG and make necessary adjustments Plaquenil per protocol Bronchodilators Follow CXR Zosyn, azithromycin Follow clinical course Prognosis guarded Monitor LFTs, Total cct 30 min including review of cxr, labs, ABG , discussion with RN/ RT and complex medical decision making АЛЕКСАНДР SCHULTZ MD Jan 18, 2020 09:19
[2020-01-18] MEDS: HYDROXYCHLOROQUINE 200 MG TABLET PO SCH ×2 (09:49→21:08)
[2020-01-18] MEDS: AZITHROMYCIN 500 MG in IV NORMAL SALINE 250ML 250 ML IV SCH (09:50)
[2020-01-18] MEDS: LACTOBACILLUS RHAMNOSUS GG 1 CAPSULE. PO SCH ×2 (09:50→21:08)
[2020-01-18] MEDS: MIDAZOLAM 100mg/100ml NS BAG 100 ML IV PRN ×2 (09:51→13:00)
--- NOTE | 2020-01-18 10:14 | RAD ---
CHEST AP ONLY History: Ventilation. Covid positive. Respiratory failure. Comparison: January 17, 2020 Findings: Multifocal pulmonary opacities and consolidations most prominent in the left midlung, unchanged. No pleural effusion. Normal heart size. No pneumothorax. Stable endotracheal tube and enteric tube. Impression: 1. Multifocal pulmonary opacities, unchanged. Electronically signed by: Andrzej Wallis DO (01/18/2020 10:11 AM) [id number]
[2020-01-18 10:42] LABS: BASE EXCESS IS ARTERIAL 1 mmol/L (0-3); HCO3 IS ARTERIAL 24 mmol/L (21-28); PCO2 IS ARTERIAL 29 mmHg (35-45); PH IS ARTERIAL 7.51 (7.35-7.45); PO2 IS ARTERIAL 98 mmHg (75-100); SAT O2 IS ARTERIAL 98 % (95-99); TCO2 IS ARTERIAL 24 mmol/L (21-32)
--- NOTE | 2020-01-18 14:05 | PDOC ---
[employer] PROGRESS NOTE Chief Complaint Chief Complaint 1. Patchy left mid and bibasilar opacities,C/W COVID-19 viral pneumonia. 2. ACUTE HYPOXIC RESP FAILURE 3. COVID-19 POS AG 4. HX ASTHMA 5. History of hysterectomy 6. Overweight 7. Mild transaminase-itis 8. Borderline diabetic History of Present Illness History of Present Illness [id number] Patient seen and examined in the ICU She is mechanically ventilated Assist-control/450/20 with 80% FiO2 and 8 of PEEP Satting 98% PH slightly high at 7.51 Chart reviewed I reviewed all films myself Her chest x-rays have worsened Discussed with RN Patient is sedated and has a Montero to bedside drainage Vitals/I&O Vitals/I&O: Vital Signs Date Time Temp Pulse Resp B/P (MAP) Pulse Ox O2 Delivery O2 Flow Rate FiO2 01/18/20 12:59 99 Ventilator 01/18/20 11:00 80 18 87/55 (66) 01/18/20 04:00 98.3 98.3 01/17/20 23:19 8.0 I & O 01/17/20 01/17/20 01/18/20 15:00 23:00 07:00 Intake Total 1131.3 ml Output Total 200 ml 305 ml Balance -200 ml 826.3 ml Physical Exam General: Other (sedated and on the vent) Heart: Regular rate, Normal S1, No murmurs Lungs: Crackles Abdomen: Normal bowel sounds, Soft, No tenderness, No hepatosplenomegaly Extremities: No cyanosis, No edema, Normal pulses Skin: No rashes, No significant lesion Labs Labs: Laboratory Tests Test 01/17/20 19:36 01/17/20 21:08 01/18/20 09:33 O2 Saturation 91 % (92-99) 93 % (92-99) Arterial Blood pH 7.46 (7.35-7.45) 7.37 (7.35-7.45) Arterial Blood pCO2 at Patient Temp 35 mmHg (35-46) 44 mmHg (35-46) Arterial Blood pO2 at Patient Temp 55 mmHg (75-108) 67 mmHg (75-108) Arterial Blood HCO3 24 mmol/L (21-28) 25 mmol/L (21-28) 24 mmol/L (21-28) Arterial Blood Base Excess 1 mmol/L (-3-3) -1 mmol/L (-3-3) FiO2 52 100 Arterial Blood pH (Temp corrected) 7.35 Arterial Blood pCO2 (Temp correct) 46 mmHg Arterial Blood pO2 (Temp corrected) 73 mmHg Bedside Arterial pH 7.51 (7.35-7.45) Bedside Arterial pCO2 29 mmHg (35-45) Bedside Arterial pO2 98 mmHg (75-100) Bedside Arterial Blood O2 Sat 98 % (95-99) Bedside FiO2 80.0 Review of Systems Review of Systems: Unable to obtain Assessment and Plan Assessmemt and Plan Problems Medical Problems: (1) COVID-19 Status: Acute (2) Dyspnea Status: Acute 1. Patchy left mid and bibasilar opacities,C/W COVID-19 viral pneumonia. 2. ACUTE HYPOXIC RESP FAILURE 3. COVID-19 POS AG 4. HX ASTHMA Plan Plaquenil 200 by mouth twice a day IV Zosyn per pharmacy IV azithromycin Add a multiple vitamin Vent weaning Home meds if possible DVT prophylaxis Trend labs Full code Appreciate subspecialist input Prognosis guarded and she is critically ill Total time 32 minutes Comment Review of Relevant I have reviewed the following items augusto (where applicable) has been applied. Medications: Current Medications Medications (Trade) Dose Ordered Sig/Sophie Route PRN Reason Start Time Stop Time Status Last Admin Dose Admin Fentanyl Citrate 30 ml @ 0 mls/hr CONT PRN IV SEE PROTOCOL 01/17/20 20:15 01/18/20 12:59 Midazolam HCl 100 ml @ 0 mls/hr CONT PRN IV SEE PROTOCOL 01/17/20 20:15 01/18/20 13:00 AMANDA STRATTON III DO Jan 18, 2020 14:05
[2020-01-18] MEDS: ENOXAPARIN 40 MG/0.4 ML SYRINGE. SQ SCH (16:30)
[2020-01-18] MEDS: ZINC SULFATE 220 MG CAPSULE. PO SCH (16:32)
[2020-01-18] MEDS: ASCORBIC ACID 500 MG TABLET PO SCH (16:32)
[2020-01-18] MEDS: FAMOTIDINE 20 MG/2 ML VIAL IVP SCH (21:08)
[2020-01-19] VITALS (24 sets, daily range): BP systolic 86–105; BP diastolic 53–66
[2020-01-19] MEDS: MIDAZOLAM 100mg/100ml NS BAG 100 ML IV PRN ×3 (00:04→20:09)
[2020-01-19] MEDS: PIPERACILLIN/TAZOBACTAM 3.375 GM in IV NORMAL SALINE 50ML 50 ML IV SCH ×5 (00:04→23:38)
[2020-01-19 05:33] LABS: BASO % 0 % (0-3); EOS # 0.2 x10^3/uL (0.0-0.7); EOS % 3 % (0-3); HEMATOCRIT 30.3 % (36.0-47.0); HEMOGLOBIN 9.9 g/dL (12.0-15.5); LYMPH % 18 % (24-48); MEAN CORPUSCULAR HEMOGLOBIN 28 pg (25-35); MEAN CORPUSCULAR HGB CONC 33 g/dL (31-37); MEAN CORPUSCULAR VOLUME 87 fL (79-100); MONO # 0.7 x10^3/uL (0.0-1.1); MONO % 12 % (0-9); NEUT # 3.9 x10^3/uL (1.8-7.7); NEUT % 67 % (31-73); PLATELET COUNT 305 x10^3/uL (140-400); RED CELL DISTRIBUTION WIDTH 14.3 % (11.5-14.5); WHITE BLOOD COUNT 5.7 x10^3/uL (4.0-11.0)
[2020-01-19 05:54] LABS: CREATININE 0.7 mg/dL (0.6-1.0); GFR 88.9; POTASSIUM 3.2 mmol/L (3.5-5.1)
[2020-01-19] MEDS: HYDROXYCHLOROQUINE 200 MG TABLET PO SCH ×2 (08:14→20:49)
[2020-01-19] MEDS: MULTIVITAMINS,THERAPEUTIC 5 ML ORAL LIQUID. PEG SCH (08:14)
[2020-01-19] MEDS: FAMOTIDINE 20 MG/2 ML VIAL IVP SCH ×2 (08:14→20:49)
[2020-01-19] MEDS: LACTOBACILLUS RHAMNOSUS GG 1 CAPSULE. PO SCH ×2 (08:14→20:49)
[2020-01-19] MEDS: ASCORBIC ACID 500 MG TABLET PO SCH (08:14)
[2020-01-19] MEDS: IV NORMAL SALINE 1000ML BAG 1,000 ML IV SCH ×2 (08:15→20:07)
[2020-01-19] MEDS: ZINC SULFATE 220 MG CAPSULE. PO SCH (08:16)
--- NOTE | 2020-01-19 09:09 | PDOC ---
PULMONARY PROGRESS NOTES Subjective Intubated 01/16 due to worsening hypoxia/ respiratory distress AC mode, 80%FIO2/ 8 PEEP Vitals Vital Signs Date Time Temp Pulse Resp B/P (MAP) Pulse Ox O2 Delivery O2 Flow Rate FiO2 01/19/20 08:41 96 Ventilator 01/19/20 06:00 63 18 90/55 (67) 01/19/20 04:00 99.4 99.4 01/19/20 00:00 8.0 Comments Visual exam done Patient sedated, Intubated no respiratory distress No obvious rash, no leg edema ROS: No Nausea, No Chest Pain, No Abdominal Pain Labs Laboratory Tests Test 01/17/20 19:36 01/17/20 21:08 01/18/20 09:33 01/19/20 05:15 O2 Saturation 91 % (92-99) 93 % (92-99) Arterial Blood pH 7.46 (7.35-7.45) 7.37 (7.35-7.45) Arterial Blood pCO2 at Patient Temp 35 mmHg (35-46) 44 mmHg (35-46) Arterial Blood pO2 at Patient Temp 55 mmHg (75-108) 67 mmHg (75-108) Arterial Blood HCO3 24 mmol/L (21-28) 25 mmol/L (21-28) 24 mmol/L (21-28) Arterial Blood Base Excess 1 mmol/L (-3-3) -1 mmol/L (-3-3) FiO2 52 100 Arterial Blood pH (Temp corrected) 7.35 Arterial Blood pCO2 (Temp correct) 46 mmHg Arterial Blood pO2 (Temp corrected) 73 mmHg Bedside Arterial pH 7.51 (7.35-7.45) Bedside Arterial pCO2 29 mmHg (35-45) Bedside Arterial pO2 98 mmHg (75-100) Bedside Arterial Blood O2 Sat 98 % (95-99) Bedside FiO2 80.0 White Blood Count 5.7 x10^3/uL (4.0-11.0) Red Blood Count 3.50 x10^6/uL (3.50-5.40) Hemoglobin 9.9 g/dL (12.0-15.5) Hematocrit 30.3 % (36.0-47.0) Mean Corpuscular Volume 87 fL (79-100) Mean Corpuscular Hemoglobin 28 pg (25-35) Mean Corpuscular Hemoglobin Concent 33 g/dL (31-37) Red Cell Distribution Width 14.3 % (11.5-14.5) Platelet Count 305 x10^3/uL (140-400) Neutrophils (%) (Auto) 67 % (31-73) Lymphocytes (%) (Auto) 18 % (24-48) Monocytes (%) (Auto) 12 % (0-9) Eosinophils (%) (Auto) 3 % (0-3) Basophils (%) (Auto) 0 % (0-3) Neutrophils # (Auto) 3.9 x10^3/uL (1.8-7.7) Lymphocytes # (Auto) 1.0 x10^3/uL (1.0-4.8) Monocytes # (Auto) 0.7 x10^3/uL (0.0-1.1) Eosinophils # (Auto) 0.2 x10^3/uL (0.0-0.7) Basophils # (Auto) 0.0 x10^3/uL (0.0-0.2) Sodium Level 142 mmol/L (136-145) Potassium Level 3.2 mmol/L (3.5-5.1) Chloride Level 107 mmol/L (98-107) Carbon Dioxide Level 23 mmol/L (21-32) Anion Gap 12 (6-14) Blood Urea Nitrogen 9 mg/dL (7-20) Creatinine 0.7 mg/dL (0.6-1.0) Estimated GFR (Cockcroft-Gault) 88.9 Glucose Level 56 mg/dL (70-99) Calcium Level 8.0 mg/dL (8.5-10.1) Laboratory Tests Test 01/18/20 09:33 01/19/20 05:15 Bedside Arterial pH 7.51 (7.35-7.45) Bedside Arterial pCO2 29 mmHg (35-45) Bedside Arterial pO2 98 mmHg (75-100) Arterial Blood HCO3 24 mmol/L (21-28) Bedside Arterial Blood O2 Sat 98 % (95-99) Bedside FiO2 80.0 White Blood Count 5.7 x10^3/uL (4.0-11.0) Red Blood Count 3.50 x10^6/uL (3.50-5.40) Hemoglobin 9.9 g/dL (12.0-15.5) Hematocrit 30.3 % (36.0-47.0) Mean Corpuscular Volume 87 fL (79-100) Mean Corpuscular Hemoglobin 28 pg (25-35) Mean Corpuscular Hemoglobin Concent 33 g/dL (31-37) Red Cell Distribution Width 14.3 % (11.5-14.5) Platelet Count 305 x10^3/uL (140-400) Neutrophils (%) (Auto) 67 % (31-73) Lymphocytes (%) (Auto) 18 % (24-48) Monocytes (%) (Auto) 12 % (0-9) Eosinophils (%) (Auto) 3 % (0-3) Basophils (%) (Auto) 0 % (0-3) Neutrophils # (Auto) 3.9 x10^3/uL (1.8-7.7) Lymphocytes # (Auto) 1.0 x10^3/uL (1.0-4.8) Monocytes # (Auto) 0.7 x10^3/uL (0.0-1.1) Eosinophils # (Auto) 0.2 x10^3/uL (0.0-0.7) Basophils # (Auto) 0.0 x10^3/uL (0.0-0.2) Sodium Level 142 mmol/L (136-145) Potassium Level 3.2 mmol/L (3.5-5.1) Chloride Level 107 mmol/L (98-107) Carbon Dioxide Level 23 mmol/L (21-32) Anion Gap 12 (6-14) Blood Urea Nitrogen 9 mg/dL (7-20) Creatinine 0.7 mg/dL (0.6-1.0) Estimated GFR (Cockcroft-Gault) 88.9 Glucose Level 56 mg/dL (70-99) Calcium Level 8.0 mg/dL (8.5-10.1) Medications Active Scripts Medications Dose Route/Sig Max Daily Dose Days Date Category Flovent 110MCG Hfa (Fluticasone Propionate) 12 Gm Aer.w.adap 2 Puff IH BID 01/15/20 Reported Proair Hfa Inhaler (Albuterol Sulfate) 8.5 Gm Hfa.aer.ad 2 Puff IH PRN Q4-6HRS PRN 21 01/15/20 Reported Cetirizine Hcl 10 Mg Tablet 1 Tab PO DAILY 01/15/20 Reported Premarin (Estrogens, Conjugated) 0.45 Mg Tablet 1 Tab PO DAILY 01/15/20 Reported Comments cxr 01/17 bilateral infiltrates, L> R Impression . Acute hypoxic respiratory failure due to COVID-19 pneumonia/ ARDS Positive COVID19 Bilateral infiltrates due to COVID19 pneumonia, less likely superimposed bacterial pneumonia ( Procal normal) underlying Asthma Mild transaminitis Plan . AC mode, low TV, high PEEP. keep oxygen saturations greater than 92% Follow ABG and make necessary adjustments Plaquenil per protocol Bronchodilators Follow CXR Zosyn, azithromycin Follow clinical course Prognosis guarded Monitor LFTs, D/W RN . WILL INCREASE PEEP AND REDUCE FIO2 Total cct 30 min including review of cxr, labs, ABG , discussion with RN/ RT and complex medical decision making АЛЕКСАНДР SCHULTZ MD Jan 19, 2020 09:09
[2020-01-19 09:32] LABS: BASE EXCESS ABG -6 mmol/L (-3-3); HCO3 ABG 19 mmol/L (21-28); PCO2 ABG 35 mmHg (35-46); PO2 ABG 83 mmHg (75-108); SAT O2 ABG 96 % (92-99)
[2020-01-19 09:37] LABS: FIO2 ABG 80
--- NOTE | 2020-01-19 10:26 | RAD ---
Single view of the chest. 01/19/2020 6:00 AM Indication: Ventilatory support Comparison: Chest radiograph, yesterday Findings: Stable endotracheal tube and enteric tube. New right sided PICC line with tip at the cavoatrial junction. Patchy infiltrates throughout the bilateral lungs are similar to comparison exam. No pneumothorax or definitive effusion is seen. Heart size is normal. Bony thorax is unchanged. IMPRESSION: 1. New right-sided PICC line. Support lines and tubes otherwise stable 2. Similar patchy infiltrates throughout the bilateral lungs Electronically signed by: Luis E Ibrahim MD (01/19/2020 10:23 AM) [id number]
--- NOTE | 2020-01-19 11:13 | PDOC ---
PROGRESS NOTES Chief Complaint Chief Complaint 1. Patchy left mid and bibasilar opacities,C/W COVID-19 viral pneumonia. 2. ACUTE HYPOXIC RESP FAILURE 3. COVID-19 POS AG 4. HX ASTHMA 5. History of hysterectomy 6. Overweight 7. Mild transaminase-itis 8. Borderline diabetic Plan: continue with vent support continue plaqunil and zithromax monitor hemodynamics further recommendations based on clinical course reassess in the am History of Present Illness History of Present Illness [id number] Patient seen and examined in the ICU She is mechanically ventilated Assist-control/450/20 with 80% FiO2 and 8 of PEEP Satting 98% PH slightly high at 7.51 Chart reviewed I reviewed all films myself Her chest x-rays have worsened Discussed with RN Patient is sedated and has a Montero to bedside drainage Vitals Vitals Vital Signs Date Time Temp Pulse Resp B/P (MAP) Pulse Ox O2 Delivery O2 Flow Rate FiO2 01/19/20 08:41 96 Ventilator 01/19/20 06:00 63 18 90/55 (67) 01/19/20 04:00 99.4 99.4 01/19/20 00:00 8.0 Physical Exam General: Other (sedated and on the vent) Heart: Regular rate, Normal S1, No murmurs Abdomen: Normal bowel sounds, Soft, No tenderness, No hepatosplenomegaly Extremities: No cyanosis, No edema, Normal pulses Skin: No rashes, No significant lesion Labs LABS Laboratory Tests Test 01/19/20 05:15 01/19/20 09:30 White Blood Count 5.7 x10^3/uL (4.0-11.0) Red Blood Count 3.50 x10^6/uL (3.50-5.40) Hemoglobin 9.9 g/dL (12.0-15.5) Hematocrit 30.3 % (36.0-47.0) Mean Corpuscular Volume 87 fL (79-100) Mean Corpuscular Hemoglobin 28 pg (25-35) Mean Corpuscular Hemoglobin Concent 33 g/dL (31-37) Red Cell Distribution Width 14.3 % (11.5-14.5) Platelet Count 305 x10^3/uL (140-400) Neutrophils (%) (Auto) 67 % (31-73) Lymphocytes (%) (Auto) 18 % (24-48) Monocytes (%) (Auto) 12 % (0-9) Eosinophils (%) (Auto) 3 % (0-3) Basophils (%) (Auto) 0 % (0-3) Neutrophils # (Auto) 3.9 x10^3/uL (1.8-7.7) Lymphocytes # (Auto) 1.0 x10^3/uL (1.0-4.8) Monocytes # (Auto) 0.7 x10^3/uL (0.0-1.1) Eosinophils # (Auto) 0.2 x10^3/uL (0.0-0.7) Basophils # (Auto) 0.0 x10^3/uL (0.0-0.2) Sodium Level 142 mmol/L (136-145) Potassium Level 3.2 mmol/L (3.5-5.1) Chloride Level 107 mmol/L (98-107) Carbon Dioxide Level 23 mmol/L (21-32) Anion Gap 12 (6-14) Blood Urea Nitrogen 9 mg/dL (7-20) Creatinine 0.7 mg/dL (0.6-1.0) Estimated GFR (Cockcroft-Gault) 88.9 Glucose Level 56 mg/dL (70-99) Calcium Level 8.0 mg/dL (8.5-10.1) O2 Saturation 96 % (92-99) Arterial Blood pH 7.36 (7.35-7.45) Arterial Blood pCO2 at Patient Temp 35 mmHg (35-46) Arterial Blood pO2 at Patient Temp 83 mmHg (75-108) Arterial Blood HCO3 19 mmol/L (21-28) Arterial Blood Base Excess -6 mmol/L (-3-3) FiO2 80 Assessment and Plan Assessmemt and Plan Problems Medical Problems: (1) COVID-19 Status: Acute (2) Dyspnea Status: Acute Comment Review of Relevant I have reviewed the following items augusto (where applicable) has been applied. Labs Laboratory Tests Test 01/17/20 19:36 01/17/20 21:08 01/18/20 09:33 01/19/20 05:15 O2 Saturation 91 % (92-99) 93 % (92-99) Arterial Blood pH 7.46 (7.35-7.45) 7.37 (7.35-7.45) Arterial Blood pCO2 at Patient Temp 35 mmHg (35-46) 44 mmHg (35-46) Arterial Blood pO2 at Patient Temp 55 mmHg (75-108) 67 mmHg (75-108) Arterial Blood HCO3 24 mmol/L (21-28) 25 mmol/L (21-28) 24 mmol/L (21-28) Arterial Blood Base Excess 1 mmol/L (-3-3) -1 mmol/L (-3-3) FiO2 52 100 Arterial Blood pH (Temp corrected) 7.35 Arterial Blood pCO2 (Temp correct) 46 mmHg Arterial Blood pO2 (Temp corrected) 73 mmHg Bedside Arterial pH 7.51 (7.35-7.45) Bedside Arterial pCO2 29 mmHg (35-45) Bedside Arterial pO2 98 mmHg (75-100) Bedside Arterial Blood O2 Sat 98 % (95-99) Bedside FiO2 80.0 White Blood Count 5.7 x10^3/uL (4.0-11.0) Red Blood Count 3.50 x10^6/uL (3.50-5.40) Hemoglobin 9.9 g/dL (12.0-15.5) Hematocrit 30.3 % (36.0-47.0) Mean Corpuscular Volume 87 fL (79-100) Mean Corpuscular Hemoglobin 28 pg (25-35) Mean Corpuscular Hemoglobin Concent 33 g/dL (31-37) Red Cell Distribution Width 14.3 % (11.5-14.5) Platelet Count 305 x10^3/uL (140-400) Neutrophils (%) (Auto) 67 % (31-73) Lymphocytes (%) (Auto) 18 % (24-48) Monocytes (%) (Auto) 12 % (0-9) Eosinophils (%) (Auto) 3 % (0-3) Basophils (%) (Auto) 0 % (0-3) Neutrophils # (Auto) 3.9 x10^3/uL (1.8-7.7) Lymphocytes # (Auto) 1.0 x10^3/uL (1.0-4.8) Monocytes # (Auto) 0.7 x10^3/uL (0.0-1.1) Eosinophils # (Auto) 0.2 x10^3/uL (0.0-0.7) Basophils # (Auto) 0.0 x10^3/uL (0.0-0.2) Sodium Level 142 mmol/L (136-145) Potassium Level 3.2 mmol/L (3.5-5.1) Chloride Level 107 mmol/L (98-107) Carbon Dioxide Level 23 mmol/L (21-32) Anion Gap 12 (6-14) Blood Urea Nitrogen 9 mg/dL (7-20) Creatinine 0.7 mg/dL (0.6-1.0) Estimated GFR (Cockcroft-Gault) 88.9 Glucose Level 56 mg/dL (70-99) Calcium Level 8.0 mg/dL (8.5-10.1) Test 01/19/20 09:30 O2 Saturation 96 % (92-99) Arterial Blood pH 7.36 (7.35-7.45) Arterial Blood pCO2 at Patient Temp 35 mmHg (35-46) Arterial Blood pO2 at Patient Temp 83 mmHg (75-108) Arterial Blood HCO3 19 mmol/L (21-28) Arterial Blood Base Excess -6 mmol/L (-3-3) FiO2 80 Laboratory Tests Test 01/19/20 05:15 01/19/20 09:30 White Blood Count 5.7 x10^3/uL (4.0-11.0) Red Blood Count 3.50 x10^6/uL (3.50-5.40) Hemoglobin 9.9 g/dL (12.0-15.5) Hematocrit 30.3 % (36.0-47.0) Mean Corpuscular Volume 87 fL (79-100) Mean Corpuscular Hemoglobin 28 pg (25-35) Mean Corpuscular Hemoglobin Concent 33 g/dL (31-37) Red Cell Distribution Width 14.3 % (11.5-14.5) Platelet Count 305 x10^3/uL (140-400) Neutrophils (%) (Auto) 67 % (31-73) Lymphocytes (%) (Auto) 18 % (24-48) Monocytes (%) (Auto) 12 % (0-9) Eosinophils (%) (Auto) 3 % (0-3) Basophils (%) (Auto) 0 % (0-3) Neutrophils # (Auto) 3.9 x10^3/uL (1.8-7.7) Lymphocytes # (Auto) 1.0 x10^3/uL (1.0-4.8) Monocytes # (Auto) 0.7 x10^3/uL (0.0-1.1) Eosinophils # (Auto) 0.2 x10^3/uL (0.0-0.7) Basophils # (Auto) 0.0 x10^3/uL (0.0-0.2) Sodium Level 142 mmol/L (136-145) Potassium Level 3.2 mmol/L (3.5-5.1) Chloride Level 107 mmol/L (98-107) Carbon Dioxide Level 23 mmol/L (21-32) Anion Gap 12 (6-14) Blood Urea Nitrogen 9 mg/dL (7-20) Creatinine 0.7 mg/dL (0.6-1.0) Estimated GFR (Cockcroft-Gault) 88.9 Glucose Level 56 mg/dL (70-99) Calcium Level 8.0 mg/dL (8.5-10.1) O2 Saturation 96 % (92-99) Arterial Blood pH 7.36 (7.35-7.45) Arterial Blood pCO2 at Patient Temp 35 mmHg (35-46) Arterial Blood pO2 at Patient Temp 83 mmHg (75-108) Arterial Blood HCO3 19 mmol/L (21-28) Arterial Blood Base Excess -6 mmol/L (-3-3) FiO2 80 Microbiology 01/16/20 Blood Culture - Preliminary, Resulted NO GROWTH AFTER 3 DAYS Medications Current Medications Sodium Chloride (Normal Saline Flush) 3 ml QSHIFT PRN IV AFTER MEDS AND BLOOD DRAWS; Start 01/15/20 at 15:45 Sodium Chloride 1,000 ml @ 100 mls/hr Q10H IV Last administered on 01/19/20at 08:15; Start 01/15/20 at 15:40 Ondansetron HCl (Zofran) 4 mg PRN Q4HRS PRN IV NAUSEA/VOMITING Last administered on 01/17/20at 09:30; Start 01/15/20 at 15:45 Acetaminophen (Tylenol) 650 mg PRN Q4HRS PRN PO TEMP OVER 100.4F OR MILD PAIN Last administered on 01/16/20at 20:17; Start 01/15/20 at 15:45 Al Hydroxide/Mg Hydroxide (Mylanta Plus Xs) 30 ml PRN DAILY PRN PO HEARTBURN / GAS; Start 01/15/20 at 15:45 Clonidine HCl (Catapres) 0.1 mg PRN Q6HRS PRN PO SBP>160 OR DBP>90; Start 01/15/20 at 15:45 Sodium Monofluorophosphate (Fleet Adult) 133 ml PRN DAILY PRN MT CONSTIPATION; Start 01/15/20 at 15:45 Docusate Sodium (Colace) 100 mg PRN BID PRN PO CONSTIPATION; Start 01/15/20 at 15:45 Albuterol Sulfate (Ventolin Neb Soln) 2.5 mg PRN Q4HRS PRN NEB SHORTNESS OF BREATH Last administered on 01/16/20at 08:55; Start 01/15/20 at 15:45; Stop 01/16/20 at 11:22; Status DC Guaifenesin (Robitussin) 200 mg PRN Q4HRS PRN PO COUGH Last administered on 01/16/20at 06:14; Start 01/15/20 at 15:45; Stop 01/16/20 at 11:22; Status DC Lorazepam (Ativan) 0.5 mg PRN Q4HRS PRN PO ANXIETY / AGITATION Last administered on 01/17/20at 09:30; Start 01/15/20 at 15:45 Enoxaparin Sodium (Lovenox 40mg Syringe) 40 mg Q24H SQ Last administered on 01/18/20at 16:30; Start 01/15/20 at 16:00 Piperacillin Sod/ Tazobactam Sod 3.375 gm/Sodium Chloride 50 ml @ 100 mls/hr Q6HRS IV Last administered on 01/19/20at 05:40; Start 01/15/20 at 16:00 Hydroxychloroquine Sulfate (Plaquenil) 400 mg 1X ONCE PO Last administered on 01/15/20at 16:15; Start 01/15/20 at 16:15; Stop 01/15/20 at 16:16; Status DC Acetaminophen/ Hydrocodone Bitart (Lortab 5/325) 1 tab PRN Q4HRS PRN PO MODERATE PAIN 4-6 Last administered on 01/17/20at 09:31; Start 01/15/20 at 23:30 Albuterol Sulfate (Ventolin Neb Soln) 2.5 mg PRN QID PRN NEB SHORTNESS OF BREATH Last administered on 01/17/20at 10:19; Start 01/16/20 at 11:30 Azithromycin 500 mg/Sodium Chloride 250 ml @ 250 mls/hr Q24H IV Last administered on 01/18/20at 09:50; Start 01/16/20 at 12:00 Throat Lozenges (Cepacol Sore Throat Lozenge) 1 salima PRN Q2HRS PRN PO SORE THROAT Last administered on 01/16/20at 20:17; Start 01/16/20 at 11:30 Guaifenesin/ Codeine Phosphate (Robitussin Ac) 5 ml PRN Q6HRS PRN PO COUGH Last administered on 01/16/20at 19:06; Start 01/16/20 at 11:30; Stop 01/17/20 at 09:14; Status DC Hydroxychloroquine Sulfate (Plaquenil) 200 mg BID PO Last administered on 01/19/20at 08:14; Start 01/16/20 at 12:00; Stop 01/19/20 at 21:01 Sodium Chloride 1,000 ml @ 1,440 mls/hr Q42M IV ; Start 01/16/20 at 15:00; Stop 01/16/20 at 16:00; Status DC Sodium Chloride 500 ml @ 1,000 mls/hr PRN Q30MIN PRN IV SEE COMMENTS; Start 01/16/20 at 15:00 Lactobacillus Rhamnosus (Culturelle) 1 cap BID PO Last administered on 01/19/20at 08:14; Start 01/16/20 at 21:00 Guaifenesin/ Codeine Phosphate (Robitussin Ac) 5 ml PRN Q4HRS PRN PO COUGH Last administered on 01/17/20at 09:31; Start 01/17/20 at 09:15 Fentanyl Citrate 30 ml @ 0 mls/hr CONT PRN IV SEE PROTOCOL Last administered on 01/19/20at 03:30; Start 01/17/20 at 20:15 Fentanyl Citrate (Fentanyl 2ml Vial) 25 mcg PRN Q1HR PRN IV SEE COMMENTS; Start 01/17/20 at 20:15 Fentanyl Citrate (Fentanyl 2ml Vial) 50 mcg PRN Q1HR PRN IV SEE COMMENTS; Start 01/17/20 at 20:15 Midazolam HCl 100 ml @ 0 mls/hr CONT PRN IV SEE PROTOCOL Last administered on 01/19/20at 00:04; Start 01/17/20 at 20:15 Succinylcholine Chloride (Anectine) 200 mg STK-MED ONCE .ROUTE ; Start 01/17/20 at 20:12; Stop 01/17/20 at 20:12; Status DC Vecuronium [place] (Norcuron Bolus) 10 mg STK-MED ONCE IV ; Start 01/17/20 at 20:12; Stop 01/17/20 at 20:12; Status DC Etomidate (Amidate) 20 mg STK-MED ONCE IV ; Start 01/17/20 at 20:33; Stop 01/17/20 at 20:33; Status DC Famotidine (Pepcid Vial) 20 mg BID IVP Last administered on 01/19/20at 08:14; Start 01/18/20 at 21:00 Multivitamins/ Minerals Therapeutic (Centrum Multivit-Mineral Liq) 5 ml DAILY PEG Last administered on 01/19/20at 08:14; Start 01/19/20 at 09:00 Ascorbic Acid (Vitamin C) 500 mg DAILY PO Last administered on 01/19/20at 08:14; Start 01/18/20 at 15:00 Zinc Sulfate (Orazinc) 220 mg DAILY PO Last administered on 01/19/20at 08:16; Start 01/18/20 at 15:00 Active Scripts Active Reported Flovent 110MCG Hfa (Fluticasone Propionate) 12 Gm Aer.w.adap 2 Puff IH BID Proair Hfa Inhaler (Albuterol Sulfate) 8.5 Gm Hfa.aer.ad 2 Puff IH PRN Q4-6HRS PRN 21 Days Cetirizine Hcl 10 Mg Tablet 1 Tab PO DAILY Premarin (Estrogens, Conjugated) 0.45 Mg Tablet 1 Tab PO DAILY Vitals/I & O Vital Sign - Last 24 Hours 01/18/20 01/18/20 01/18/20 01/18/20 11:56 12:00 12:00 12:59 Temp 100.4 100.4 Pulse 78 Resp 15 B/P (MAP) 92/61 (71) Pulse Ox 95 100 99 O2 Delivery Ventilator Mechanical Ventilator Ventilator Ventilator 01/18/20 01/18/20 01/18/20 01/18/20 13:00 13:29 14:00 15:00 Pulse 84 81 76 Resp 16 17 14 B/P (MAP) 99/66 (77) 84/56 (65) 83/54 (64) Pulse Ox 99 97 93 96 O2 Delivery Ventilator Ventilator Ventilator 01/18/20 01/18/20 01/18/20 01/18/20 16:00 16:00 16:02 17:00 Temp 100.0 100.0 Pulse 80 78 Resp 17 14 B/P (MAP) 93/57 (69) 91/54 (66) Pulse Ox 96 94 96 O2 Delivery Ventilator Mechanical Ventilator Ventilator Ventilator 01/18/20 01/18/20 01/18/20 01/18/20 18:00 19:00 19:38 20:00 Pulse 76 73 Resp 14 18 18 B/P (MAP) 89/44 (59) 90/55 (67) Pulse Ox 97 95 O2 Delivery Ventilator Ventilator Mechanical Ventilator 01/18/20 01/18/20 01/18/20 01/18/20 20:00 20:08 20:15 21:00 Temp 99.6 99.6 Pulse 76 74 Resp 18 18 18 B/P (MAP) 89/56 (67) 90/53 (65) Pulse Ox 96 96 97 O2 Delivery Ventilator Ventilator Ventilator 01/18/20 01/18/20 01/18/20 01/19/20 22:00 23:00 23:45 00:00 Pulse 76 75 Resp 18 18 B/P (MAP) 91/54 (66) 92/58 (69) Pulse Ox 95 94 95 O2 Delivery Ventilator Ventilator Ventilator Mechanical Ventilator O2 Flow Rate 8.0 01/19/20 01/19/20 01/19/20 01/19/20 00:00 01:00 02:00 03:00 Temp 99.4 99.4 Pulse 70 70 70 68 Resp 18 18 18 18 B/P (MAP) 86/55 (65) 90/54 (66) 92/58 (69) 94/59 (71) Pulse Ox 94 95 94 94 O2 Delivery Ventilator Ventilator Ventilator Ventilator 01/19/20 01/19/20 01/19/20 01/19/20 03:30 03:45 04:00 04:00 Resp 18 18 Pulse Ox 94 O2 Delivery Ventilator Ventilator Ventilator Mechanical Ventilator 01/19/20 01/19/20 01/19/20 01/19/20 04:00 05:00 06:00 08:41 Temp 99.4 99.4 Pulse 68 66 63 Resp 18 18 18 B/P (MAP) 92/59 (70) 91/56 (68) 90/55 (67) Pulse Ox 94 95 96 96 O2 Delivery Ventilator Ventilator Ventilator Ventilator Intake and Output 01/18/20 01/18/20 01/19/20 15:00 23:00 07:00 Intake Total 300 ml 1512 ml Output Total 320 ml 315 ml 470 ml Balance -20 ml 1197 ml -470 ml CORNELIUS DURON MD Jan 19, 2020 11:13
[2020-01-19] MEDS: AMINO AC 3%/ELECTROLYTE/GLYCER 1,000 ML IV SCH (14:26)
[2020-01-19] MEDS: AZITHROMYCIN 500 MG in IV NORMAL SALINE 250ML 250 ML IV SCH (14:26)
[2020-01-19] MEDS: ENOXAPARIN 40 MG/0.4 ML SYRINGE. SQ SCH (17:04)
[2020-01-19] MEDS: POTASSIUM CHLORIDE 20MEQ 100 ML IV SCH ×2 (20:06→22:10)
[2020-01-20] VITALS (23 sets, daily range): BP systolic 88–118; BP diastolic 49–68
[2020-01-20] MEDS: AMINO AC 3%/ELECTROLYTE/GLYCER 1,000 ML IV SCH ×2 (05:03→14:53)
[2020-01-20] MEDS: MIDAZOLAM 100mg/100ml NS BAG 100 ML IV PRN ×3 (05:03→20:20)
[2020-01-20] MEDS: IV NORMAL SALINE 1000ML BAG 1,000 ML IV SCH (05:40)
[2020-01-20] MEDS: PIPERACILLIN/TAZOBACTAM 3.375 GM in IV NORMAL SALINE 50ML 50 ML IV SCH ×4 (06:29→22:26)
[2020-01-20 06:59] LABS: CALCIUM 8.1 mg/dL (8.5-10.1); CREATININE 0.6 mg/dL (0.6-1.0); GFR 106.3; POTASSIUM 4.2 mmol/L (3.5-5.1)
[2020-01-20 07:10] LABS: BASO % 0 % (0-3); EOS # 0.2 x10^3/uL (0.0-0.7); EOS % 4 % (0-3); HEMATOCRIT 32.1 % (36.0-47.0); HEMOGLOBIN 10.4 g/dL (12.0-15.5); LYMPH # 0.9 x10^3/uL (1.0-4.8); LYMPH % 14 % (24-48); MEAN CORPUSCULAR HEMOGLOBIN 28 pg (25-35); MEAN CORPUSCULAR HGB CONC 32 g/dL (31-37); MEAN CORPUSCULAR VOLUME 87 fL (79-100); MONO # 0.7 x10^3/uL (0.0-1.1); MONO % 10 % (0-9); NEUT % 73 % (31-73); PLATELET COUNT 350 x10^3/uL (140-400); RED CELL DISTRIBUTION WIDTH 14.4 % (11.5-14.5); WHITE BLOOD COUNT 6.9 x10^3/uL (4.0-11.0)
--- NOTE | 2020-01-20 07:38 | PDOC ---
PULMONARY PROGRESS NOTES Subjective Intubated 01/16 due to worsening hypoxia/ respiratory distress AC mode, 80%FIO2/ 9 PEEP no major overnight event Vitals Vital Signs Date Time Temp Pulse Resp B/P (MAP) Pulse Ox O2 Delivery O2 Flow Rate FiO2 01/20/20 06:00 73 14 95/61 (72) Ventilator 01/20/20 05:00 98 01/20/20 04:00 97.7 97.7 01/19/20 18:21 8.0 Comments Visual exam done Patient sedated, Intubated no respiratory distress No obvious rash, no leg edema ROS: No Nausea, No Chest Pain, No Abdominal Pain Labs Laboratory Tests Test 01/18/20 09:33 01/19/20 05:15 01/19/20 09:30 01/19/20 17:59 Bedside Arterial pH 7.51 (7.35-7.45) Bedside Arterial pCO2 29 mmHg (35-45) Bedside Arterial pO2 98 mmHg (75-100) Arterial Blood HCO3 24 mmol/L (21-28) 19 mmol/L (21-28) Bedside Arterial Blood O2 Sat 98 % (95-99) Bedside FiO2 80.0 White Blood Count 5.7 x10^3/uL (4.0-11.0) Red Blood Count 3.50 x10^6/uL (3.50-5.40) Hemoglobin 9.9 g/dL (12.0-15.5) Hematocrit 30.3 % (36.0-47.0) Mean Corpuscular Volume 87 fL (79-100) Mean Corpuscular Hemoglobin 28 pg (25-35) Mean Corpuscular Hemoglobin Concent 33 g/dL (31-37) Red Cell Distribution Width 14.3 % (11.5-14.5) Platelet Count 305 x10^3/uL (140-400) Neutrophils (%) (Auto) 67 % (31-73) Lymphocytes (%) (Auto) 18 % (24-48) Monocytes (%) (Auto) 12 % (0-9) Eosinophils (%) (Auto) 3 % (0-3) Basophils (%) (Auto) 0 % (0-3) Neutrophils # (Auto) 3.9 x10^3/uL (1.8-7.7) Lymphocytes # (Auto) 1.0 x10^3/uL (1.0-4.8) Monocytes # (Auto) 0.7 x10^3/uL (0.0-1.1) Eosinophils # (Auto) 0.2 x10^3/uL (0.0-0.7) Basophils # (Auto) 0.0 x10^3/uL (0.0-0.2) Sodium Level 142 mmol/L (136-145) Potassium Level 3.2 mmol/L (3.5-5.1) Chloride Level 107 mmol/L (98-107) Carbon Dioxide Level 23 mmol/L (21-32) Anion Gap 12 (6-14) Blood Urea Nitrogen 9 mg/dL (7-20) Creatinine 0.7 mg/dL (0.6-1.0) Estimated GFR (Cockcroft-Gault) 88.9 Glucose Level 56 mg/dL (70-99) Calcium Level 8.0 mg/dL (8.5-10.1) O2 Saturation 96 % (92-99) Arterial Blood pH 7.36 (7.35-7.45) Arterial Blood pCO2 at Patient Temp 35 mmHg (35-46) Arterial Blood pO2 at Patient Temp 83 mmHg (75-108) Arterial Blood Base Excess -6 mmol/L (-3-3) FiO2 80 Glucose (Fingerstick) 74 mg/dL (70-99) Test 01/19/20 23:29 01/20/20 06:00 Glucose (Fingerstick) 77 mg/dL (70-99) White Blood Count 6.9 x10^3/uL (4.0-11.0) Red Blood Count 3.70 x10^6/uL (3.50-5.40) Hemoglobin 10.4 g/dL (12.0-15.5) Hematocrit 32.1 % (36.0-47.0) Mean Corpuscular Volume 87 fL (79-100) Mean Corpuscular Hemoglobin 28 pg (25-35) Mean Corpuscular Hemoglobin Concent 32 g/dL (31-37) Red Cell Distribution Width 14.4 % (11.5-14.5) Platelet Count 350 x10^3/uL (140-400) Neutrophils (%) (Auto) 73 % (31-73) Lymphocytes (%) (Auto) 14 % (24-48) Monocytes (%) (Auto) 10 % (0-9) Eosinophils (%) (Auto) 4 % (0-3) Basophils (%) (Auto) 0 % (0-3) Neutrophils # (Auto) 5.0 x10^3/uL (1.8-7.7) Lymphocytes # (Auto) 0.9 x10^3/uL (1.0-4.8) Monocytes # (Auto) 0.7 x10^3/uL (0.0-1.1) Eosinophils # (Auto) 0.2 x10^3/uL (0.0-0.7) Basophils # (Auto) 0.0 x10^3/uL (0.0-0.2) Sodium Level 139 mmol/L (136-145) Potassium Level 4.2 mmol/L (3.5-5.1) Chloride Level 106 mmol/L (98-107) Carbon Dioxide Level 27 mmol/L (21-32) Anion Gap 6 (6-14) Blood Urea Nitrogen 9 mg/dL (7-20) Creatinine 0.6 mg/dL (0.6-1.0) Estimated GFR (Cockcroft-Gault) 106.3 Glucose Level 89 mg/dL (70-99) Calcium Level 8.1 mg/dL (8.5-10.1) Laboratory Tests Test 01/19/20 09:30 01/19/20 17:59 01/19/20 23:29 01/20/20 06:00 O2 Saturation 96 % (92-99) Arterial Blood pH 7.36 (7.35-7.45) Arterial Blood pCO2 at Patient Temp 35 mmHg (35-46) Arterial Blood pO2 at Patient Temp 83 mmHg (75-108) Arterial Blood HCO3 19 mmol/L (21-28) Arterial Blood Base Excess -6 mmol/L (-3-3) FiO2 80 Glucose (Fingerstick) 74 mg/dL (70-99) 77 mg/dL (70-99) White Blood Count 6.9 x10^3/uL (4.0-11.0) Red Blood Count 3.70 x10^6/uL (3.50-5.40) Hemoglobin 10.4 g/dL (12.0-15.5) Hematocrit 32.1 % (36.0-47.0) Mean Corpuscular Volume 87 fL (79-100) Mean Corpuscular Hemoglobin 28 pg (25-35) Mean Corpuscular Hemoglobin Concent 32 g/dL (31-37) Red Cell Distribution Width 14.4 % (11.5-14.5) Platelet Count 350 x10^3/uL (140-400) Neutrophils (%) (Auto) 73 % (31-73) Lymphocytes (%) (Auto) 14 % (24-48) Monocytes (%) (Auto) 10 % (0-9) Eosinophils (%) (Auto) 4 % (0-3) Basophils (%) (Auto) 0 % (0-3) Neutrophils # (Auto) 5.0 x10^3/uL (1.8-7.7) Lymphocytes # (Auto) 0.9 x10^3/uL (1.0-4.8) Monocytes # (Auto) 0.7 x10^3/uL (0.0-1.1) Eosinophils # (Auto) 0.2 x10^3/uL (0.0-0.7) Basophils # (Auto) 0.0 x10^3/uL (0.0-0.2) Sodium Level 139 mmol/L (136-145) Potassium Level 4.2 mmol/L (3.5-5.1) Chloride Level 106 mmol/L (98-107) Carbon Dioxide Level 27 mmol/L (21-32) Anion Gap 6 (6-14) Blood Urea Nitrogen 9 mg/dL (7-20) Creatinine 0.6 mg/dL (0.6-1.0) Estimated GFR (Cockcroft-Gault) 106.3 Glucose Level 89 mg/dL (70-99) Calcium Level 8.1 mg/dL (8.5-10.1) Medications Active Scripts Medications Dose Route/Sig Max Daily Dose Days Date Category Flovent 110MCG Hfa (Fluticasone Propionate) 12 Gm Aer.w.adap 2 Puff IH BID 01/15/20 Reported Proair Hfa Inhaler (Albuterol Sulfate) 8.5 Gm Hfa.aer.ad 2 Puff IH PRN Q4-6HRS PRN 21 01/15/20 Reported Cetirizine Hcl 10 Mg Tablet 1 Tab PO DAILY 01/15/20 Reported Premarin (Estrogens, Conjugated) 0.45 Mg Tablet 1 Tab PO DAILY 01/15/20 Reported Comments cxr 01/18 bilateral infiltrates, L> R Impression . Acute hypoxic respiratory failure due to COVID-19 pneumonia/ ARDS Positive COVID19 Bilateral infiltrates due to COVID19 pneumonia, ? superimposed bacterial pneumonia ( Procal normal) underlying Asthma Mild transaminitis Plan . AC mode, low TV, high PEEP of 9. Fio2 80%,keep oxygen saturations greater than 92% Follow ABG and make necessary adjustments Plaquenil per protocol Bronchodilators Follow CXR Zosyn, azithromycin Follow clinical course Prognosis guarded Monitor LFTs, D/W RN . Total cct 30 min including review of cxr, labs, ABG , discussion with RN/ RT and complex medical decision making АЛЕКСАНДР SCHULTZ MD Jan 20, 2020 07:38
[2020-01-20] MEDS: ZINC SULFATE 220 MG CAPSULE. PO SCH (08:26)
[2020-01-20] MEDS: LACTOBACILLUS RHAMNOSUS GG 1 CAPSULE. PO SCH ×2 (08:26→22:26)
[2020-01-20] MEDS: ASCORBIC ACID 500 MG TABLET PO SCH (08:26)
[2020-01-20] MEDS: FAMOTIDINE 20 MG/2 ML VIAL IVP SCH ×2 (08:26→22:25)
[2020-01-20] MEDS: MULTIVITAMINS,THERAPEUTIC 5 ML ORAL LIQUID. PEG SCH (08:26)
[2020-01-20 08:34] LABS: BASE EXCESS ABG -3 mmol/L (-3-3); HCO3 ABG 22 mmol/L (21-28); PCO2 ABG 40 mmHg (35-46); PO2 ABG 76 mmHg (75-108); SAT O2 ABG 95 % (92-99)
--- NOTE | 2020-01-20 08:34 | RAD ---
Examination: KUB History: OG tube placement Comparison/Correlation: AP view of the chest 01/19/2020 Findings: Portable supine frontal view of the abdomen was obtained. Enteric tube is present terminating 6.8 cm past the gastroesophageal junction. The sidehole is at the gastroesophageal junction level. Catheter tubing is noted overlying the superior cavoatrial junction level. Patchy infiltrates are present involving the lower lung russell. Bowel gas pattern is nonspecific. Lower abdomen and pelvis were not included for purposes of this exam. Impression: Patchy infiltrates of the lower lung russell again seen. Enteric tube is in place. The sidehole is at the gastroesophageal junction level. Consider further advancement by an additional 5 cm it clinically desired. Electronically signed by: Edis Acosta MD (01/20/2020 8:32 AM) [id number]
[2020-01-20 09:55] LABS: FIO2 ABG 80 +9
[2020-01-20] MEDS: AZITHROMYCIN 500 MG in IV NORMAL SALINE 250ML 250 ML IV SCH (12:42)
--- NOTE | 2020-01-20 14:12 | PDOC ---
PROGRESS NOTES Chief Complaint Chief Complaint 1. Patchy left mid and bibasilar opacities,C/W COVID-19 viral pneumonia. 2. ACUTE HYPOXIC RESP FAILURE 3. COVID-19 POS AG 4. HX ASTHMA 5. History of hysterectomy 6. Overweight 7. Mild transaminase-itis 8. Borderline diabetic Plan: continue with vent support continue plaquenil and zithromax monitor hemodynamics further recommendations based on clinical course reassess in the am History of Present Illness History of Present Illness Patient with no acute events reported overnight, continues to require quite a bit ventilatory support. Patient with grim prognosis, rehab consultant recommendations greatly appreciated. Vitals Vitals Vital Signs Date Time Temp Pulse Resp B/P (MAP) Pulse Ox O2 Delivery O2 Flow Rate FiO2 01/20/20 11:37 95 Ventilator 01/20/20 09:48 8.0 01/20/20 06:00 73 14 95/61 (72) 01/20/20 04:00 97.7 97.7 Physical Exam General: Other (sedated and on the vent) Heart: Regular rate, Normal S1, No murmurs Abdomen: Normal bowel sounds, Soft, No tenderness, No hepatosplenomegaly Extremities: No cyanosis, No edema, Normal pulses Skin: No rashes, No significant lesion Labs LABS Laboratory Tests Test 01/19/20 17:59 01/19/20 23:29 01/20/20 06:00 01/20/20 08:00 Glucose (Fingerstick) 74 mg/dL (70-99) 77 mg/dL (70-99) White Blood Count 6.9 x10^3/uL (4.0-11.0) Red Blood Count 3.70 x10^6/uL (3.50-5.40) Hemoglobin 10.4 g/dL (12.0-15.5) Hematocrit 32.1 % (36.0-47.0) Mean Corpuscular Volume 87 fL (79-100) Mean Corpuscular Hemoglobin 28 pg (25-35) Mean Corpuscular Hemoglobin Concent 32 g/dL (31-37) Red Cell Distribution Width 14.4 % (11.5-14.5) Platelet Count 350 x10^3/uL (140-400) Neutrophils (%) (Auto) 73 % (31-73) Lymphocytes (%) (Auto) 14 % (24-48) Monocytes (%) (Auto) 10 % (0-9) Eosinophils (%) (Auto) 4 % (0-3) Basophils (%) (Auto) 0 % (0-3) Neutrophils # (Auto) 5.0 x10^3/uL (1.8-7.7) Lymphocytes # (Auto) 0.9 x10^3/uL (1.0-4.8) Monocytes # (Auto) 0.7 x10^3/uL (0.0-1.1) Eosinophils # (Auto) 0.2 x10^3/uL (0.0-0.7) Basophils # (Auto) 0.0 x10^3/uL (0.0-0.2) Sodium Level 139 mmol/L (136-145) Potassium Level 4.2 mmol/L (3.5-5.1) Chloride Level 106 mmol/L (98-107) Carbon Dioxide Level 27 mmol/L (21-32) Anion Gap 6 (6-14) Blood Urea Nitrogen 9 mg/dL (7-20) Creatinine 0.6 mg/dL (0.6-1.0) Estimated GFR (Cockcroft-Gault) 106.3 Glucose Level 89 mg/dL (70-99) Calcium Level 8.1 mg/dL (8.5-10.1) O2 Saturation 95 % (92-99) Arterial Blood pH 7.37 (7.35-7.45) Arterial Blood pCO2 at Patient Temp 40 mmHg (35-46) Arterial Blood pO2 at Patient Temp 76 mmHg (75-108) Arterial Blood HCO3 22 mmol/L (21-28) Arterial Blood Base Excess -3 mmol/L (-3-3) FiO2 80 +9 Assessment and Plan Assessmemt and Plan Problems Medical Problems: (1) COVID-19 Status: Acute (2) Dyspnea Status: Acute Comment Review of Relevant I have reviewed the following items augusto (where applicable) has been applied. Labs Laboratory Tests Test 01/19/20 05:15 01/19/20 09:30 01/19/20 17:59 01/19/20 23:29 White Blood Count 5.7 x10^3/uL (4.0-11.0) Red Blood Count 3.50 x10^6/uL (3.50-5.40) Hemoglobin 9.9 g/dL (12.0-15.5) Hematocrit 30.3 % (36.0-47.0) Mean Corpuscular Volume 87 fL (79-100) Mean Corpuscular Hemoglobin 28 pg (25-35) Mean Corpuscular Hemoglobin Concent 33 g/dL (31-37) Red Cell Distribution Width 14.3 % (11.5-14.5) Platelet Count 305 x10^3/uL (140-400) Neutrophils (%) (Auto) 67 % (31-73) Lymphocytes (%) (Auto) 18 % (24-48) Monocytes (%) (Auto) 12 % (0-9) Eosinophils (%) (Auto) 3 % (0-3) Basophils (%) (Auto) 0 % (0-3) Neutrophils # (Auto) 3.9 x10^3/uL (1.8-7.7) Lymphocytes # (Auto) 1.0 x10^3/uL (1.0-4.8) Monocytes # (Auto) 0.7 x10^3/uL (0.0-1.1) Eosinophils # (Auto) 0.2 x10^3/uL (0.0-0.7) Basophils # (Auto) 0.0 x10^3/uL (0.0-0.2) Sodium Level 142 mmol/L (136-145) Potassium Level 3.2 mmol/L (3.5-5.1) Chloride Level 107 mmol/L (98-107) Carbon Dioxide Level 23 mmol/L (21-32) Anion Gap 12 (6-14) Blood Urea Nitrogen 9 mg/dL (7-20) Creatinine 0.7 mg/dL (0.6-1.0) Estimated GFR (Cockcroft-Gault) 88.9 Glucose Level 56 mg/dL (70-99) Calcium Level 8.0 mg/dL (8.5-10.1) O2 Saturation 96 % (92-99) Arterial Blood pH 7.36 (7.35-7.45) Arterial Blood pCO2 at Patient Temp 35 mmHg (35-46) Arterial Blood pO2 at Patient Temp 83 mmHg (75-108) Arterial Blood HCO3 19 mmol/L (21-28) Arterial Blood Base Excess -6 mmol/L (-3-3) FiO2 80 Glucose (Fingerstick) 74 mg/dL (70-99) 77 mg/dL (70-99) Test 01/20/20 06:00 01/20/20 08:00 White Blood Count 6.9 x10^3/uL (4.0-11.0) Red Blood Count 3.70 x10^6/uL (3.50-5.40) Hemoglobin 10.4 g/dL (12.0-15.5) Hematocrit 32.1 % (36.0-47.0) Mean Corpuscular Volume 87 fL (79-100) Mean Corpuscular Hemoglobin 28 pg (25-35) Mean Corpuscular Hemoglobin Concent 32 g/dL (31-37) Red Cell Distribution Width 14.4 % (11.5-14.5) Platelet Count 350 x10^3/uL (140-400) Neutrophils (%) (Auto) 73 % (31-73) Lymphocytes (%) (Auto) 14 % (24-48) Monocytes (%) (Auto) 10 % (0-9) Eosinophils (%) (Auto) 4 % (0-3) Basophils (%) (Auto) 0 % (0-3) Neutrophils # (Auto) 5.0 x10^3/uL (1.8-7.7) Lymphocytes # (Auto) 0.9 x10^3/uL (1.0-4.8) Monocytes # (Auto) 0.7 x10^3/uL (0.0-1.1) Eosinophils # (Auto) 0.2 x10^3/uL (0.0-0.7) Basophils # (Auto) 0.0 x10^3/uL (0.0-0.2) Sodium Level 139 mmol/L (136-145) Potassium Level 4.2 mmol/L (3.5-5.1) Chloride Level 106 mmol/L (98-107) Carbon Dioxide Level 27 mmol/L (21-32) Anion Gap 6 (6-14) Blood Urea Nitrogen 9 mg/dL (7-20) Creatinine 0.6 mg/dL (0.6-1.0) Estimated GFR (Cockcroft-Gault) 106.3 Glucose Level 89 mg/dL (70-99) Calcium Level 8.1 mg/dL (8.5-10.1) O2 Saturation 95 % (92-99) Arterial Blood pH 7.37 (7.35-7.45) Arterial Blood pCO2 at Patient Temp 40 mmHg (35-46) Arterial Blood pO2 at Patient Temp 76 mmHg (75-108) Arterial Blood HCO3 22 mmol/L (21-28) Arterial Blood Base Excess -3 mmol/L (-3-3) FiO2 80 +9 Laboratory Tests Test 01/19/20 17:59 01/19/20 23:29 01/20/20 06:00 01/20/20 08:00 Glucose (Fingerstick) 74 mg/dL (70-99) 77 mg/dL (70-99) White Blood Count 6.9 x10^3/uL (4.0-11.0) Red Blood Count 3.70 x10^6/uL (3.50-5.40) Hemoglobin 10.4 g/dL (12.0-15.5) Hematocrit 32.1 % (36.0-47.0) Mean Corpuscular Volume 87 fL (79-100) Mean Corpuscular Hemoglobin 28 pg (25-35) Mean Corpuscular Hemoglobin Concent 32 g/dL (31-37) Red Cell Distribution Width 14.4 % (11.5-14.5) Platelet Count 350 x10^3/uL (140-400) Neutrophils (%) (Auto) 73 % (31-73) Lymphocytes (%) (Auto) 14 % (24-48) Monocytes (%) (Auto) 10 % (0-9) Eosinophils (%) (Auto) 4 % (0-3) Basophils (%) (Auto) 0 % (0-3) Neutrophils # (Auto) 5.0 x10^3/uL (1.8-7.7) Lymphocytes # (Auto) 0.9 x10^3/uL (1.0-4.8) Monocytes # (Auto) 0.7 x10^3/uL (0.0-1.1) Eosinophils # (Auto) 0.2 x10^3/uL (0.0-0.7) Basophils # (Auto) 0.0 x10^3/uL (0.0-0.2) Sodium Level 139 mmol/L (136-145) Potassium Level 4.2 mmol/L (3.5-5.1) Chloride Level 106 mmol/L (98-107) Carbon Dioxide Level 27 mmol/L (21-32) Anion Gap 6 (6-14) Blood Urea Nitrogen 9 mg/dL (7-20) Creatinine 0.6 mg/dL (0.6-1.0) Estimated GFR (Cockcroft-Gault) 106.3 Glucose Level 89 mg/dL (70-99) Calcium Level 8.1 mg/dL (8.5-10.1) O2 Saturation 95 % (92-99) Arterial Blood pH 7.37 (7.35-7.45) Arterial Blood pCO2 at Patient Temp 40 mmHg (35-46) Arterial Blood pO2 at Patient Temp 76 mmHg (75-108) Arterial Blood HCO3 22 mmol/L (21-28) Arterial Blood Base Excess -3 mmol/L (-3-3) FiO2 80 +9 Microbiology 01/16/20 Blood Culture - Preliminary, Resulted NO GROWTH AFTER 4 DAYS Medications Current Medications Sodium Chloride (Normal Saline Flush) 3 ml QSHIFT PRN IV AFTER MEDS AND BLOOD DRAWS; Start 01/15/20 at 15:45 Sodium Chloride 1,000 ml @ 100 mls/hr Q10H IV Last administered on 01/19/20at 20:07; Start 01/15/20 at 15:40 Ondansetron HCl (Zofran) 4 mg PRN Q4HRS PRN IV NAUSEA/VOMITING Last ad ministered on 01/17/20at 09:30; Start 01/15/20 at 15:45 Acetaminophen (Tylenol) 650 mg PRN Q4HRS PRN PO TEMP OVER 100.4F OR MILD PAIN Last administered on 01/16/20at 20:17; Start 01/15/20 at 15:45 Al Hydroxide/Mg Hydroxide (Mylanta Plus Xs) 30 ml PRN DAILY PRN PO HEARTBURN / GAS; Start 01/15/20 at 15:45 Clonidine HCl (Catapres) 0.1 mg PRN Q6HRS PRN PO SBP>160 OR DBP>90; Start 12/19 06/08 at 15:45 Sodium Monofluorophosphate (Fleet Adult) 133 ml PRN DAILY PRN PA CONSTIPATION; Start 01/15/20 at 15:45 Docusate Sodium (Colace) 100 mg PRN BID PRN PO CONSTIPATION; Start 01/15/20 at 15:45 Albuterol Sulfate (Ventolin Neb Soln) 2.5 mg PRN Q4HRS PRN NEB SHORTNESS OF BREATH Last administered on 01/16/20 08:55; Start 01/15/20 at 15:45; Stop 01/16/20 at 11:22; Status DC Guaifenesin (Robitussin) 200 mg PRN Q4HRS PRN PO COUGH Last administered on 01/16/20at 06:14; Start 01/15/20 at 15:45; Stop 01/16/20 at 11:22; Status DC Lorazepam (Ativan) 0.5 mg PRN Q4HRS PRN PO ANXIETY / AGITATION Last administered on 01/17/20 09:30; Start 01/15/20 at 15:45 Enoxaparin Sodium (Lovenox 40mg Syringe) 40 mg Q24H SQ Last administered on 01/19/20at 17:04; Start 01/15/20 at 16:00 Piperacillin Sod/ Tazobactam Sod 3.375 gm/Sodium Chloride 50 ml @ 100 mls/hr Q6HRS IV Last administered on 01/20/20 11:55; Start 01/15/20 at 16:00 Hydroxychloroquine Sulfate (Plaquenil) 400 mg 1X ONCE PO Last administered on 01/15/20at 16:15; Start 01/15/20 at 16:15; Stop 01/15/20 at 16:16; Status DC Acetaminophen/ Hydrocodone Bitart (Lortab 5/325) 1 tab PRN Q4HRS PRN PO MODERATE PAIN 4-6 Last administered on 01/17/20at 09:31; Start 01/15/20 at 23:30 Albuterol Sulfate (Ventolin Neb Soln) 2.5 mg PRN QID PRN NEB SHORTNESS OF BREATH Last administered on 01/17/20at 10:19; Start 01/16/20 at 11:30 Azithromycin 500 mg/Sodium Chloride 250 ml @ 250 mls/hr Q24H IV Last administered on 01/20/20at 12:42; Start 01/16/20 at 12:00 Throat Lozenges (Cepacol Sore Throat Lozenge) 1 salima PRN Q2HRS PRN PO SORE THROAT Last administered on 01/16/20at 20:17; Start 01/16/20 at 11:30 Guaifenesin/ Codeine Phosphate (Robitussin Ac) 5 ml PRN Q6HRS PRN PO COUGH Last administered on 01/16/20at 19:06; Start 01/16/20 at 11:30; Stop 01/17/20 at 09:14; Status DC Hydroxychloroquine Sulfate (Plaquenil) 200 mg BID PO Last administered on 01/19/20at 20:49; Start 01/16/20 at 12:00; Stop 01/19/20 at 21:01; Status DC Sodium Chloride 1,000 ml @ 1,440 mls/hr Q42M IV ; Start 01/16/20 at 15:00; Stop 01/16/20 at 16:00; Status DC Sodium Chloride 500 ml @ 1,000 mls/hr PRN Q30MIN PRN IV SEE COMMENTS; Start 01/16/20 at 15:00 Lactobacillus Rhamnosus (Culturelle) 1 cap BID PO Last administered on 01/20/20at 08:26; Start 01/16/20 at 21:00 Guaifenesin/ Codeine Phosphate (Robitussin Ac) 5 ml PRN Q4HRS PRN PO COUGH Last administered on 01/17/20at 09:31; Start 01/17/20 at 09:15 Fentanyl Citrate 30 ml @ 0 mls/hr CONT PRN IV SEE PROTOCOL Last administered on 01/20/20at 09:18; Start 01/17/20 at 20:15 Fentanyl Citrate (Fentanyl 2ml Vial) 25 mcg PRN Q1HR PRN IV SEE COMMENTS; Start 01/17/20 at 20:15 Fentanyl Citrate (Fentanyl 2ml Vial) 50 mcg PRN Q1HR PRN IV SEE COMMENTS; Start 01/17/20 at 20:15 Midazolam HCl 100 ml @ 0 mls/hr CONT PRN IV SEE PROTOCOL Last administered on 01/20/20at 12:45; Start 01/17/20 at 20:15 Succinylcholine Chloride (Anectine) 200 mg STK-MED ONCE .ROUTE ; Start 01/17/20 at 20:12; Stop 01/17/20 at 20:12; Status DC Vecuronium [place] (Norcuron Bolus) 10 mg STK-MED ONCE IV ; Start 01/17/20 at 20:12; Stop 01/17/20 at 20:12; Status DC Etomidate (Amidate) 20 mg STK-MED ONCE IV ; Start 01/17/20 at 20:33; Stop 01/16 at 20:33; Status DC Famotidine (Pepcid Vial) 20 mg BID IVP Last administered on 01/20/20at 08:26; Start 01/18/20 at 21:00 Multivitamins/ Minerals Therapeutic (Centrum Multivit-Mineral Liq) 5 ml DAILY PEG Last administered on 01/20/20at 08:26; Start 01/19/20 at 09:00 Ascorbic Acid (Vitamin C) 500 mg DAILY PO Last administered on 01/20/20 08:26; Start 01/18/20 at 15:00 Zinc Sulfate (Orazinc) 220 mg DAILY PO Last administered on 01/20/20at 08:26; Start 01/18/20 at 15:00 Amino Acids/ Glycerin/ Electrolytes 1,000 ml @ 80 mls/hr [id number] IV Last administered on 01/20/20at 05:03; Start 01/19/20 at 13:45 Potassium Chloride/Water 100 ml @ 100 mls/hr Q1H IV Last administered on 01/19/20at 22:10; Start 01/19/20 at 19:00; Stop 01/19/20 at 20:59; Status DC Active Scripts Active Reported Flovent 110MCG Hfa (Fluticasone Propionate) 12 Gm Aer.w.adap 2 Puff IH BID Proair Hfa Inhaler (Albuterol Sulfate) 8.5 Gm Hfa.aer.ad 2 Puff IH PRN Q4-6HRS PRN 21 Days Cetirizine Hcl 10 Mg Tablet 1 Tab PO DAILY Premarin (Estrogens, Conjugated) 0.45 Mg Tablet 1 Tab PO DAILY Vitals/I & O Vital Sign - Last 24 Hours 01/19/20 01/19/20 01/19/20 01/19/20 15:00 16:00 16:00 16:20 Temp 98.5 98.5 Pulse 74 66 Resp 24 15 B/P (MAP) 96/53 (67) 94/62 (73) Pulse Ox 100 100 100 O2 Delivery Ventilator Ventilator Mechanical Ventilator Ventilator 01/19/20 01/19/20 01/19/20 01/19/20 17:00 17:51 18:00 18:21 Pulse 68 69 Resp 15 20 B/P (MAP) 91/57 (68) 87/56 (66) Pulse Ox 100 100 100 100 O2 Delivery Ventilator Ventilator O2 Flow Rate 8.0 8.0 01/19/20 01/19/20 01/19/20 01/19/20 19:00 20:00 20:00 20:41 Temp 99.2 99.2 Pulse 66 64 Resp 14 14 B/P (MAP) 104/66 (79) 105/61 (76) Pulse Ox 98 98 100 O2 Delivery Ventilator Ventilator Mechanical Ventilator Ventilator 01/19/20 01/19/20 01/19/20 01/19/20 21:00 22:00 23:00 23:26 Pulse 66 66 62 Resp 14 14 14 B/P (MAP) 101/58 (72) 99/63 (75) 102/64 (77) Pulse Ox 99 99 99 100 O2 Delivery Ventilator Ventilator Ventilator Ventilator 01/20/20 01/20/20 01/20/20 01/20/20 00:00 00:00 01:00 02:00 Temp 98.8 98.8 Pulse 61 62 60 Resp 15 14 14 B/P (MAP) 102/65 (77) 102/65 (77) 105/67 (80) Pulse Ox 98 98 98 O2 Delivery Ventilator Mechanical Ventilator Ventilator Ventilator 01/20/20 01/20/20 01/20/20 01/20/20 03:00 03:45 04:00 04:00 Temp 97.7 97.7 Pulse 62 62 Resp 14 14 B/P (MAP) 107/64 (78) 104/62 (76) Pulse Ox 98 100 98 O2 Delivery Ventilator Ventilator Ventilator Mechanical Ventilator 01/20/20 01/20/20 01/20/20 01/20/20 05:00 06:00 08:00 08:10 Pulse 62 73 Resp 14 14 B/P (MAP) 88/57 (67) 95/61 (72) Pulse Ox 98 93 O2 Delivery Ventilator Ventilator Mechanical Ventilator Ventilator 01/20/20 01/20/20 01/20/20 09:18 09:48 11:37 Pulse Ox 93 93 95 O2 Delivery Ventilator Ventilator O2 Flow Rate 8.0 Intake and Output 01/19/20 01/19/20 01/20/20 15:00 23:00 07:00 Intake Total 50 ml 1469.6 ml 1351 ml Output Total 375 ml 270 ml 345 ml Balance -325 ml 1199.6 ml 1006 ml CORNELIUS DURON MD Jan 20, 2020 14:12
[2020-01-20] MEDS: ENOXAPARIN 40 MG/0.4 ML SYRINGE. SQ SCH (17:45)
[2020-01-21] VITALS (24 sets, daily range): BP systolic 74–150; BP diastolic 45–76
[2020-01-21] MEDS: AMINO AC 3%/ELECTROLYTE/GLYCER 1,000 ML IV SCH ×2 (03:47→15:23)
[2020-01-21 06:30] LABS: CREATININE 0.6 mg/dL (0.6-1.0); GFR 106.3; MAGNESIUM 1.8 mg/dL (1.8-2.4); POTASSIUM 3.7 mmol/L (3.5-5.1)
[2020-01-21] MEDS: PIPERACILLIN/TAZOBACTAM 3.375 GM in IV NORMAL SALINE 50ML 50 ML IV SCH ×4 (06:44→23:43)
[2020-01-21] MEDS: IV NORMAL SALINE 1000ML BAG 1,000 ML IV SCH (06:45)
--- NOTE | 2020-01-21 07:47 | PDOC ---
PULMONARY PROGRESS NOTES Subjective Intubated 01/16 due to worsening hypoxia/ respiratory distress AC mode, 80%FIO2/ 9 PEEP no major overnight event RN reports increase secretions Vitals Vital Signs Date Time Temp Pulse Resp B/P (MAP) Pulse Ox O2 Delivery O2 Flow Rate FiO2 01/21/20 05:09 100 Ventilator 01/21/20 05:05 8.0 01/21/20 03:00 59 14 105/61 (76) 01/21/20 00:00 98.9 98.9 Comments Visual exam done Patient sedated, Intubated no respiratory distress No obvious rash, no leg edema Labs Laboratory Tests Test 01/19/20 09:30 01/19/20 17:59 01/19/20 23:29 01/20/20 06:00 O2 Saturation 96 % (92-99) Arterial Blood pH 7.36 (7.35-7.45) Arterial Blood pCO2 at Patient Temp 35 mmHg (35-46) Arterial Blood pO2 at Patient Temp 83 mmHg (75-108) Arterial Blood HCO3 19 mmol/L (21-28) Arterial Blood Base Excess -6 mmol/L (-3-3) FiO2 80 Glucose (Fingerstick) 74 mg/dL (70-99) 77 mg/dL (70-99) White Blood Count 6.9 x10^3/uL (4.0-11.0) Red Blood Count 3.70 x10^6/uL (3.50-5.40) Hemoglobin 10.4 g/dL (12.0-15.5) Hematocrit 32.1 % (36.0-47.0) Mean Corpuscular Volume 87 fL (79-100) Mean Corpuscular Hemoglobin 28 pg (25-35) Mean Corpuscular Hemoglobin Concent 32 g/dL (31-37) Red Cell Distribution Width 14.4 % (11.5-14.5) Platelet Count 350 x10^3/uL (140-400) Neutrophils (%) (Auto) 73 % (31-73) Lymphocytes (%) (Auto) 14 % (24-48) Monocytes (%) (Auto) 10 % (0-9) Eosinophils (%) (Auto) 4 % (0-3) Basophils (%) (Auto) 0 % (0-3) Neutrophils # (Auto) 5.0 x10^3/uL (1.8-7.7) Lymphocytes # (Auto) 0.9 x10^3/uL (1.0-4.8) Monocytes # (Auto) 0.7 x10^3/uL (0.0-1.1) Eosinophils # (Auto) 0.2 x10^3/uL (0.0-0.7) Basophils # (Auto) 0.0 x10^3/uL (0.0-0.2) Sodium Level 139 mmol/L (136-145) Potassium Level 4.2 mmol/L (3.5-5.1) Chloride Level 106 mmol/L (98-107) Carbon Dioxide Level 27 mmol/L (21-32) Anion Gap 6 (6-14) Blood Urea Nitrogen 9 mg/dL (7-20) Creatinine 0.6 mg/dL (0.6-1.0) Estimated GFR (Cockcroft-Gault) 106.3 Glucose Level 89 mg/dL (70-99) Calcium Level 8.1 mg/dL (8.5-10.1) Test 01/20/20 08:00 01/20/20 23:09 01/21/20 04:03 01/21/20 06:20 O2 Saturation 95 % (92-99) Arterial Blood pH 7.37 (7.35-7.45) Arterial Blood pCO2 at Patient Temp 40 mmHg (35-46) Arterial Blood pO2 at Patient Temp 76 mmHg (75-108) Arterial Blood HCO3 22 mmol/L (21-28) Arterial Blood Base Excess -3 mmol/L (-3-3) FiO2 80 +9 Glucose (Fingerstick) 90 mg/dL (70-99) 71 mg/dL (70-99) Sodium Level 140 mmol/L (136-145) Potassium Level 3.7 mmol/L (3.5-5.1) Chloride Level 106 mmol/L (98-107) Carbon Dioxide Level 26 mmol/L (21-32) Anion Gap 8 (6-14) Blood Urea Nitrogen 8 mg/dL (7-20) Creatinine 0.6 mg/dL (0.6-1.0) Estimated GFR (Cockcroft-Gault) 106.3 Glucose Level 89 mg/dL (70-99) Calcium Level 8.0 mg/dL (8.5-10.1) Magnesium Level 1.8 mg/dL (1.8-2.4) Laboratory Tests Test 01/20/20 08:00 01/20/20 23:09 01/21/20 04:03 01/21/20 06:20 O2 Saturation 95 % (92-99) Arterial Blood pH 7.37 (7.35-7.45) Arterial Blood pCO2 at Patient Temp 40 mmHg (35-46) Arterial Blood pO2 at Patient Temp 76 mmHg (75-108) Arterial Blood HCO3 22 mmol/L (21-28) Arterial Blood Base Excess -3 mmol/L (-3-3) FiO2 80 +9 Glucose (Fingerstick) 90 mg/dL (70-99) 71 mg/dL (70-99) Sodium Level 140 mmol/L (136-145) Potassium Level 3.7 mmol/L (3.5-5.1) Chloride Level 106 mmol/L (98-107) Carbon Dioxide Level 26 mmol/L (21-32) Anion Gap 8 (6-14) Blood Urea Nitrogen 8 mg/dL (7-20) Creatinine 0.6 mg/dL (0.6-1.0) Estimated GFR (Cockcroft-Gault) 106.3 Glucose Level 89 mg/dL (70-99) Calcium Level 8.0 mg/dL (8.5-10.1) Magnesium Level 1.8 mg/dL (1.8-2.4) Medications Active Scripts Medications Dose Route/Sig Max Daily Dose Days Date Category Flovent 110MCG Hfa (Fluticasone Propionate) 12 Gm Aer.w.adap 2 Puff IH BID 01/15/20 Reported Proair Hfa Inhaler (Albuterol Sulfate) 8.5 Gm Hfa.aer.ad 2 Puff IH PRN Q4-6HRS PRN 21 01/15/20 Reported Cetirizine Hcl 10 Mg Tablet 1 Tab PO DAILY 01/15/20 Reported Premarin (Estrogens, Conjugated) 0.45 Mg Tablet 1 Tab PO DAILY 01/15/20 Reported Comments cxr 01/20 diffuse bilateral infiltrates, L> R Impression . Acute hypoxic respiratory failure due to COVID-19 pneumonia/ ARDS Positive COVID19 Bilateral infiltrates due to COVID19 pneumonia, ? superimposed bacterial pneumonia ( Procal normal) underlying Asthma Mild transaminitis Plan . AC mode, low TV, Improving ABG. will wean PEEP and FIO2. ,keep oxygen saturations greater than 92% Follow ABG and make necessary adjustments Plaquenil per protocol Bronchodilators Follow CXR Zosyn, azithromycin ( dc on day 5) Follow clinical course Prognosis guarded Monitor LFTs, mild improvement D/W RN . Total cct 30 min including review of cxr, labs, ABG , discussion with RN/ RT and complex medical decision making АЛЕКСАНДР SCHULTZ MD Jan 21, 2020 07:47
[2020-01-21] MEDS: ZINC SULFATE 220 MG CAPSULE. PO SCH (08:38)
[2020-01-21] MEDS: FAMOTIDINE 20 MG/2 ML VIAL IVP SCH ×2 (08:38→20:56)
[2020-01-21] MEDS: LACTOBACILLUS RHAMNOSUS GG 1 CAPSULE. PO SCH ×2 (08:38→20:56)
[2020-01-21] MEDS: ASCORBIC ACID 500 MG TABLET PO SCH (08:38)
[2020-01-21] MEDS: MULTIVITAMINS,THERAPEUTIC 5 ML ORAL LIQUID. PEG SCH (08:38)
[2020-01-21 09:57] LABS: BASE EXCESS ABG -2 mmol/L (-3-3); HCO3 ABG 22 mmol/L (21-28); PCO2 ABG 35 mmHg (35-46); PO2 ABG 184 mmHg (75-108); SAT O2 ABG 99 % (92-99)
[2020-01-21] MEDS ORDERED: ALTEPLASE 1MG SYRINGE. INT CAT ONE (10:00)
[2020-01-21 10:23] LABS: FIO2 ABG 80
[2020-01-21] MEDS ORDERED: NOREPINEPHRINE VIAL 8 MG in IV DEXTROSE 5% 250 ML IV PRN (10:45)
--- NOTE | 2020-01-21 11:41 | RAD ---
CHEST AP ONLY History: Ventilated patient. Respiratory failure. Comparison: January 19, 2020 Findings: Diffuse interstitial and alveolar opacities. Most prominent consolidations within the right upper and bilateral lower lungs. Right upper lobe volume loss. Stable endotracheal tube, enteric tube and right PICC. No pneumothorax. No pleural effusion. Unchanged heart size. Impression: 1. Diffuse interstitial and alveolar opacities, increased within the right upper lobe. Electronically signed by: Andrzej Wallis DO (01/21/2020 11:38 AM) [id number]
[2020-01-21] MEDS: MIDAZOLAM 100mg/100ml NS BAG 100 ML IV PRN ×2 (12:57→17:40)
[2020-01-21] MEDS: ENOXAPARIN 40 MG/0.4 ML SYRINGE. SQ SCH (15:24)
--- NOTE | 2020-01-21 16:06 | PDOC ---
PROGRESS NOTES Chief Complaint Chief Complaint 1. Patchy left mid and bibasilar opacities,C/W COVID-19 viral pneumonia. 2. ACUTE HYPOXIC RESP FAILURE 3. COVID-19 POS AG 4. HX ASTHMA 5. History of hysterectomy 6. Overweight 7. Mild transaminitis 8. Borderline diabetic Plan: continue with vent support continue ATB on stop on day 5 monitor hemodynamics further recommendations based on clinical course reassess in the am History of Present Illness History of Present Illness Patient with no acute events reported overnight, continues to require quite a bit ventilatory support. 80% of Fio2 and 9 of PEEP Patient with grim prognosis, sales enablement consultant recommendations greatly appreciated. Vitals Vitals Vital Signs Date Time Temp Pulse Resp B/P (MAP) Pulse Ox O2 Delivery O2 Flow Rate FiO2 01/21/20 15:45 100 01/21/20 14:00 86 23 93/62 (72) Ventilator 01/21/20 05:05 8.0 01/21/20 04:00 98.6 98.6 Physical Exam General: Other (sedated and on the vent) Heart: Regular rate, Normal S1, No murmurs Abdomen: Normal bowel sounds, Soft, No tenderness, No hepatosplenomegaly Extremities: No cyanosis, No edema, Normal pulses Skin: No rashes, No significant lesion Labs LABS Laboratory Tests Test 01/20/20 23:09 01/21/20 04:03 01/21/20 06:20 01/21/20 09:35 Glucose (Fingerstick) 90 mg/dL (70-99) 71 mg/dL (70-99) Sodium Level 140 mmol/L (136-145) Potassium Level 3.7 mmol/L (3.5-5.1) Chloride Level 106 mmol/L (98-107) Carbon Dioxide Level 26 mmol/L (21-32) Anion Gap 8 (6-14) Blood Urea Nitrogen 8 mg/dL (7-20) Creatinine 0.6 mg/dL (0.6-1.0) Estimated GFR (Cockcroft-Gault) 106.3 Glucose Level 89 mg/dL (70-99) Calcium Level 8.0 mg/dL (8.5-10.1) Magnesium Level 1.8 mg/dL (1.8-2.4) O2 Saturation 99 % (92-99) Arterial Blood pH 7.41 (7.35-7.45) Arterial Blood pCO2 at Patient Temp 35 mmHg (35-46) Arterial Blood pO2 at Patient Temp 184 mmHg (75-108) Arterial Blood HCO3 22 mmol/L (21-28) Arterial Blood Base Excess -2 mmol/L (-3-3) FiO2 80 Assessment and Plan Assessmemt and Plan Problems Medical Problems: (1) COVID-19 Status: Acute (2) Dyspnea Status: Acute Comment Review of Relevant I have reviewed the following items augusto (where applicable) has been applied. Labs Laboratory Tests Test 01/19/20 17:59 01/19/20 23:29 01/20/20 06:00 01/20/20 08:00 Glucose (Fingerstick) 74 mg/dL (70-99) 77 mg/dL (70-99) White Blood Count 6.9 x10^3/uL (4.0-11.0) Red Blood Count 3.70 x10^6/uL (3.50-5.40) Hemoglobin 10.4 g/dL (12.0-15.5) Hematocrit 32.1 % (36.0-47.0) Mean Corpuscular Volume 87 fL (79-100) Mean Corpuscular Hemoglobin 28 pg (25-35) Mean Corpuscular Hemoglobin Concent 32 g/dL (31-37) Red Cell Distribution Width 14.4 % (11.5-14.5) Platelet Count 350 x10^3/uL (140-400) Neutrophils (%) (Auto) 73 % (31-73) Lymphocytes (%) (Auto) 14 % (24-48) Monocytes (%) (Auto) 10 % (0-9) Eosinophils (%) (Auto) 4 % (0-3) Basophils (%) (Auto) 0 % (0-3) Neutrophils # (Auto) 5.0 x10^3/uL (1.8-7.7) Lymphocytes # (Auto) 0.9 x10^3/uL (1.0-4.8) Monocytes # (Auto) 0.7 x10^3/uL (0.0-1.1) Eosinophils # (Auto) 0.2 x10^3/uL (0.0-0.7) Basophils # (Auto) 0.0 x10^3/uL (0.0-0.2) Sodium Level 139 mmol/L (136-145) Potassium Level 4.2 mmol/L (3.5-5.1) Chloride Level 106 mmol/L (98-107) Carbon Dioxide Level 27 mmol/L (21-32) Anion Gap 6 (6-14) Blood Urea Nitrogen 9 mg/dL (7-20) Creatinine 0.6 mg/dL (0.6-1.0) Estimated GFR (Cockcroft-Gault) 106.3 Glucose Level 89 mg/dL (70-99) Calcium Level 8.1 mg/dL (8.5-10.1) O2 Saturation 95 % (92-99) Arterial Blood pH 7.37 (7.35-7.45) Arterial Blood pCO2 at Patient Temp 40 mmHg (35-46) Arterial Blood pO2 at Patient Temp 76 mmHg (75-108) Arterial Blood HCO3 22 mmol/L (21-28) Arterial Blood Base Excess -3 mmol/L (-3-3) FiO2 80 +9 Test 01/20/20 23:09 01/21/20 04:03 01/21/20 06:20 01/21/20 09:35 Glucose (Fingerstick) 90 mg/dL (70-99) 71 mg/dL (70-99) Sodium Level 140 mmol/L (136-145) Potassium Level 3.7 mmol/L (3.5-5.1) Chloride Level 106 mmol/L (98-107) Carbon Dioxide Level 26 mmol/L (21-32) Anion Gap 8 (6-14) Blood Urea Nitrogen 8 mg/dL (7-20) Creatinine 0.6 mg/dL (0.6-1.0) Estimated GFR (Cockcroft-Gault) 106.3 Glucose Level 89 mg/dL (70-99) Calcium Level 8.0 mg/dL (8.5-10.1) Magnesium Level 1.8 mg/dL (1.8-2.4) O2 Saturation 99 % (92-99) Arterial Blood pH 7.41 (7.35-7.45) Arterial Blood pCO2 at Patient Temp 35 mmHg (35-46) Arterial Blood pO2 at Patient Temp 184 mmHg (75-108) Arterial Blood HCO3 22 mmol/L (21-28) Arterial Blood Base Excess -2 mmol/L (-3-3) FiO2 80 Laboratory Tests Test 01/20/20 23:09 01/21/20 04:03 01/21/20 06:20 01/21/20 09:35 Glucose (Fingerstick) 90 mg/dL (70-99) 71 mg/dL (70-99) Sodium Level 140 mmol/L (136-145) Potassium Level 3.7 mmol/L (3.5-5.1) Chloride Level 106 mmol/L (98-107) Carbon Dioxide Level 26 mmol/L (21-32) Anion Gap 8 (6-14) Blood Urea Nitrogen 8 mg/dL (7-20) Creatinine 0.6 mg/dL (0.6-1.0) Estimated GFR (Cockcroft-Gault) 106.3 Glucose Level 89 mg/dL (70-99) Calcium Level 8.0 mg/dL (8.5-10.1) Magnesium Level 1.8 mg/dL (1.8-2.4) O2 Saturation 99 % (92-99) Arterial Blood pH 7.41 (7.35-7.45) Arterial Blood pCO2 at Patient Temp 35 mmHg (35-46) Arterial Blood pO2 at Patient Temp 184 mmHg (75-108) Arterial Blood HCO3 22 mmol/L (21-28) Arterial Blood Base Excess -2 mmol/L (-3-3) FiO2 80 Microbiology 01/16/20 Blood Culture - Final, Complete NO GROWTH AFTER 5 DAYS Medications Current Medications Sodium Chloride (Normal Saline Flush) 3 ml QSHIFT PRN IV AFTER MEDS AND BLOOD DRAWS; Start 01/15/20 at 15:45 Sodium Chloride 1,000 ml @ 20 mls/hr Q24H IV Last administered on 01/21/20at 06:45; Start 01/15/20 at 15:40 Ondansetron HCl (Zofran) 4 mg PRN Q4HRS PRN IV NAUSEA/VOMITING Last administered on 01/17/20at 09:30; Start 01/15/20 at 15:45 Acetaminophen (Tylenol) 650 mg PRN Q4HRS PRN PO TEMP OVER 100.4F OR MILD PAIN Last administered on 01/16/20at 20:17; Start 01/15/20 at 15:45 Al Hydroxide/Mg Hydroxide (Mylanta Plus Xs) 30 ml PRN DAILY PRN PO HEARTBURN / GAS; Start 3/28/20 at 15:45 Clonidine HCl (Catapres) 0.1 mg PRN Q6HRS PRN PO SBP>160 OR DBP>90; Start 01/15/20 at 15:45 Sodium Monofluorophosphate (Fleet Adult) 133 ml PRN DAILY PRN IA CONSTIPATION; Start 01/15/20 at 15:45; Stop 01/21/20 at 09:37; Status DC Docusate Sodium (Colace) 100 mg PRN BID PRN PO CONSTIPATION; Start 01/15/20 at 15:45 Albuterol Sulfate (Ventolin Neb Soln) 2.5 mg PRN Q4HRS PRN NEB SHORTNESS OF BREATH Last administered on 01/16/20at 08:55; Start 01/15/20 at 15:45; Stop 01/16/20 at 11:22; Status DC Guaifenesin (Robitussin) 200 mg PRN Q4HRS PRN PO COUGH Last administered on 01/16/20at 06:14; Start 01/15/20 at 15:45; Stop 01/16/20 at 11:22; Status DC Lorazepam (Ativan) 0.5 mg PRN Q4HRS PRN PO ANXIETY / AGITATION Last administered on 01/17/20at 09:30; Start 01/15/20 at 15:45 Enoxaparin Sodium (Lovenox 40mg Syringe) 40 mg Q24H SQ Last administered on 01/21/20at 15:24; Start 01/15/20 at 16:00 Piperacillin Sod/ Tazobactam Sod 3.375 gm/Sodium Chloride 50 ml @ 100 mls/hr Q6HRS IV Last administered on 01/21/20at 12:10; Start 01/15/20 at 16:00 Hydroxychloroquine Sulfate (Plaquenil) 400 mg 1X ONCE PO Last administered on 01/15/20at 16:15; Start 01/15/20 at 16:15; Stop 01/15/20 at 16:16; Status DC Acetaminophen/ Hydrocodone Bitart (Lortab 5/325) 1 tab PRN Q4HRS PRN PO MODERATE PAIN 4-6 Last administered on 01/17/20at 09:31; Start 01/15/20 at 23:30 Albuterol Sulfate (Ventolin Neb Soln) 2.5 mg PRN QID PRN NEB SHORTNESS OF BREATH Last administered on 01/17/20at 10:19; Start 01/16/20 at 11:30 Azithromycin 500 mg/Sodium Chloride 250 ml @ 250 mls/hr Q24H IV Last administered on 01/20/20at 12:42; Start 01/16/20 at 12:00; Stop 01/20/20 at 14:46; Status DC Throat Lozenges (Cepacol Sore Throat Lozenge) 1 salima PRN Q2HRS PRN PO SORE THROAT Last administered on 01/16/20at 20:17; Start 01/16/20 at 11:30 Guaifenesin/ Codeine Phosphate (Robitussin Ac) 5 ml PRN Q6HRS PRN PO COUGH Last administered on 01/16/20at 19:06; Start 01/16/20 at 11:30; Stop 01/17/20 at 09:14; Status DC Hydroxychloroquine Sulfate (Plaquenil) 200 mg BID PO Last administered on 01/19/20at 20:49; Start 01/16/20 at 12:00; Stop 01/19/20 at 21:01; Status DC Sodium Chloride 1,000 ml @ 1,440 mls/hr Q42M IV ; Start 01/16/20 at 15:00; Stop 01/16/20 at 16:00; Status DC Sodium Chloride 500 ml @ 1,000 mls/hr PRN Q30MIN PRN IV SEE COMMENTS; Start 01/16/20 at 15:00 Lactobacillus Rhamnosus (Culturelle) 1 cap BID PO Last administered on 01/21/20at 08:38; Start 01/16/20 at 21:00 Guaifenesin/ Codeine Phosphate (Robitussin Ac) 5 ml PRN Q4HRS PRN PO COUGH Last administered on 01/17/20at 09:31; Start 01/17/20 at 09:15 Fentanyl Citrate 30 ml @ 0 mls/hr CONT PRN IV SEE PROTOCOL Last administered on 01/21/20at 15:15; Start 01/17/20 at 20:15 Fentanyl Citrate (Fentanyl 2ml Vial) 25 mcg PRN Q1HR PRN IV SEE COMMENTS; Start 01/17/20 at 20:15 Fentanyl Citrate (Fentanyl 2ml Vial) 50 mcg PRN Q1HR PRN IV SEE COMMENTS; Start 01/17/20 at 20:15 Midazolam HCl 100 ml @ 0 mls/hr CONT PRN IV SEE PROTOCOL Last administered on 01/21/20at 12:57; Start 01/17/20 at 20:15 Succinylcholine Chloride (Anectine) 200 mg STK-MED ONCE .ROUTE ; Start 01/17/20 at 20:12; Stop 01/17/20 at 20:12; Status DC Vecuronium [place] (Norcuron Bolus) 10 mg STK-MED ONCE IV ; Start 01/17/20 at 20:12; Stop 01/17/20 at 20:12; Status DC Etomidate (Amidate) 20 mg STK-MED ONCE IV ; Start 01/17/20 at 20:33; Stop 01/17/20 at 20:33; Status DC Famotidine (Pepcid Vial) 20 mg BID IVP Last administered on 01/21/20at 08:38; Start 01/18/20 at 21:00 Multivitamins/ Minerals Therapeutic (Centrum Multivit-Mineral Liq) 5 ml DAILY PEG Last administered on 01/21/20at 08:38; Start 01/19/20 at 09:00 Ascorbic Acid (Vitamin C) 500 mg DAILY PO Last administered on 01/21/20 08:38; Start 01/18/20 at 15:00 Zinc Sulfate (Orazinc) 220 mg DAILY PO Last administered on 01/21/20at 08:38; Start 01/18/20 at 15:00 Amino Acids/ Glycerin/ Electrolytes 1,000 ml @ 80 mls/hr [id number] IV Last administered on 01/21/20at 15:23; Start 01/19/20 at 13:45 Potassium Chloride/Water 100 ml @ 100 mls/hr Q1H IV Last administered on 01/19/20at 22:10; Start 01/19/20 at 19:00; Stop 01/19/20 at 20:59; Status DC Alteplase, Recombinant (Cathflo For Central Catheter Clearance) 1 mg 1X ONCE INT CAT Last administered on 01/21/20at 10:00; Start 01/21/20 at 10:00; Stop 01/21/20 at 10:01; Status DC Norepinephrine Bitartrate 8 mg/ Dextrose 258 ml @ 18.189 mls/ hr CONT PRN IV PER PROTOCOL Last administered on 01/21/20at 14:10; Start 01/21/20 at 10:45 Active Scripts Active Reported Flovent 110MCG Hfa (Fluticasone Propionate) 12 Gm Aer.w.adap 2 Puff IH BID Proair Hfa Inhaler (Albuterol Sulfate) 8.5 Gm Hfa.aer.ad 2 Puff IH PRN Q4-6HRS PRN 21 Days Cetirizine Hcl 10 Mg Tablet 1 Tab PO DAILY Premarin (Estrogens, Conjugated) 0.45 Mg Tablet 1 Tab PO DAILY Vitals/I & O Vital Sign - Last 24 Hours 01/20/20 01/20/20 01/20/20 01/20/20 17:00 18:00 20:00 20:00 Temp 98.7 98.7 Pulse 70 68 72 Resp 14 14 14 B/P (MAP) 118/56 (76) 116/58 (77) 96/57 (70) Pulse Ox 97 97 100 O2 Delivery Ventilator Ventilator Ventilator Mechanical Ventilator 01/20/20 01/20/20 01/20/20 01/20/20 20:28 20:30 21:00 21:00 Pulse 66 Resp 14 14 14 B/P (MAP) 91/54 (66) Pulse Ox 100 100 100 100 O2 Delivery Ventilator Ventilator Ventilator Ventilator 01/20/20 01/20/20 01/21/20 01/21/20 22:00 23:00 00:00 00:00 Temp 98.9 98.9 Pulse 66 64 60 Resp 14 14 14 B/P (MAP) 93/58 (70) 92/51 (65) 105/69 (81) Pulse Ox 97 100 100 O2 Delivery Ventilator Ventilator Mechanical Ventilator Ventilator 01/21/20 01/21/20 01/21/20 01/21/20 00:53 01:00 01:01 01:32 Pulse 60 Resp 14 14 14 B/P (MAP) 101/61 (74) Pulse Ox 100 100 100 100 O2 Delivery Ventilator Ventilator Ventilator Ventilator 01/21/20 01/21/20 01/21/20 01/21/20 02:00 03:00 04:00 04:00 Temp 98.6 98.6 Pulse 58 59 56 Resp 14 14 14 B/P (MAP) 101/60 (74) 105/61 (76) 102/62 (75) Pulse Ox 99 99 100 O2 Delivery Ventilator Ventilator Mechanical Ventilator Ventilator 01/21/20 01/21/20 01/21/20 01/21/20 05:00 05:05 05:09 06:00 Pulse 60 62 Resp 14 14 B/P (MAP) 83/48 (60) 80/46 (57) Pulse Ox 100 99 100 100 O2 Delivery Ventilator Ventilator Ventilator O2 Flow Rate 8.0 01/21/20 01/21/20 01/21/20 01/21/20 07:00 08:00 08:00 08:30 Pulse 64 66 Resp 16 16 B/P (MAP) 98/67 (77) 94/59 (71) Pulse Ox 100 100 100 O2 Delivery Ventilator Mechanical Ventilator Ventilator 01/21/20 01/21/20 01/21/20 01/21/20 09:00 09:36 10:00 10:28 Pulse 70 68 Resp 20 14 14 B/P (MAP) 99/51 (67) 74/45 (55) Pulse Ox 100 98 100 O2 Delivery Ventilator Ventilator Ventilator Ventilator 01/21/20 01/21/20 01/21/20 01/21/20 11:00 12:00 12:00 12:45 Pulse 70 66 Resp 14 14 B/P (MAP) 98/60 (73) 99/58 (72) Pulse Ox 99 100 99 O2 Delivery Ventilator Ventilator Mechanical Ventilator 01/21/20 01/21/20 01/21/20 01/21/20 13:00 13:08 14:00 15:45 Pulse 66 86 Resp 13 14 23 B/P (MAP) 97/58 (71) 93/62 (72) Pulse Ox 100 98 99 100 O2 Delivery Ventilator Ventilator Ventilator Intake and Output 01/20/20 01/20/20 01/21/20 15:00 23:00 07:00 Intake Total 350 ml 1600 ml Output Total 800 ml 850 ml 775 ml Balance -450 ml 750 ml -775 ml CORNELIUS DURON MD Jan 21, 2020 16:06
[2020-01-22] VITALS (26 sets, daily range): BP systolic 82–120; BP diastolic 51–76
[2020-01-22] MEDS ORDERED: ALTEPLASE 1MG SYRINGE. INT CAT ONE (05:15)
[2020-01-22] MEDS: PIPERACILLIN/TAZOBACTAM 3.375 GM in IV NORMAL SALINE 50ML 50 ML IV SCH ×4 (05:45→23:54)
[2020-01-22] MEDS: IV NORMAL SALINE 1000ML BAG 1,000 ML IV SCH ×2 (06:47→20:14)
[2020-01-22] MEDS: AMINO AC 3%/ELECTROLYTE/GLYCER 1,000 ML IV SCH ×2 (06:47→10:07)
--- NOTE | 2020-01-22 07:56 | PDOC ---
PULMONARY PROGRESS NOTES Subjective Intubated 01/16 due to worsening hypoxia/ respiratory distress AC mode, 70%FIO2/ 8 PEEP no major overnight event RN reports no major issues last night improving oxygenation Vitals Vital Signs Date Time Temp Pulse Resp B/P (MAP) Pulse Ox O2 Delivery O2 Flow Rate FiO2 01/22/20 06:46 14 99 01/22/20 06:00 74 86/51 (63) Ventilator 01/22/20 00:20 99.3 99.3 Comments Visual exam done Patient sedated, Intubated no respiratory distress No obvious rash, no leg edema Labs Laboratory Tests Test 01/20/20 08:00 01/20/20 23:09 01/21/20 04:03 01/21/20 06:20 O2 Saturation 95 % (92-99) Arterial Blood pH 7.37 (7.35-7.45) Arterial Blood pCO2 at Patient Temp 40 mmHg (35-46) Arterial Blood pO2 at Patient Temp 76 mmHg (75-108) Arterial Blood HCO3 22 mmol/L (21-28) Arterial Blood Base Excess -3 mmol/L (-3-3) FiO2 80 +9 Glucose (Fingerstick) 90 mg/dL (70-99) 71 mg/dL (70-99) Sodium Level 140 mmol/L (136-145) Potassium Level 3.7 mmol/L (3.5-5.1) Chloride Level 106 mmol/L (98-107) Carbon Dioxide Level 26 mmol/L (21-32) Anion Gap 8 (6-14) Blood Urea Nitrogen 8 mg/dL (7-20) Creatinine 0.6 mg/dL (0.6-1.0) Estimated GFR (Cockcroft-Gault) 106.3 Glucose Level 89 mg/dL (70-99) Calcium Level 8.0 mg/dL (8.5-10.1) Magnesium Level 1.8 mg/dL (1.8-2.4) Test 01/21/20 09:35 01/22/20 00:49 O2 Saturation 99 % (92-99) Arterial Blood pH 7.41 (7.35-7.45) Arterial Blood pCO2 at Patient Temp 35 mmHg (35-46) Arterial Blood pO2 at Patient Temp 184 mmHg (75-108) Arterial Blood HCO3 22 mmol/L (21-28) Arterial Blood Base Excess -2 mmol/L (-3-3) FiO2 80 Glucose (Fingerstick) 98 mg/dL (70-99) Laboratory Tests Test 01/21/20 09:35 01/22/20 00:49 O2 Saturation 99 % (92-99) Arterial Blood pH 7.41 (7.35-7.45) Arterial Blood pCO2 at Patient Temp 35 mmHg (35-46) Arterial Blood pO2 at Patient Temp 184 mmHg (75-108) Arterial Blood HCO3 22 mmol/L (21-28) Arterial Blood Base Excess -2 mmol/L (-3-3) FiO2 80 Glucose (Fingerstick) 98 mg/dL (70-99) Medications Active Scripts Medications Dose Route/Sig Max Daily Dose Days Date Category Flovent 110MCG Hfa (Fluticasone Propionate) 12 Gm Aer.w.adap 2 Puff IH BID 01/15/20 Reported Proair Hfa Inhaler (Albuterol Sulfate) 8.5 Gm Hfa.aer.ad 2 Puff IH PRN Q4-6HRS PRN 21 01/15/20 Reported Cetirizine Hcl 10 Mg Tablet 1 Tab PO DAILY 01/15/20 Reported Premarin (Estrogens, Conjugated) 0.45 Mg Tablet 1 Tab PO DAILY 01/15/20 Reported Comments cxr 01/20 diffuse bilateral infiltrates, L> R Impression . Acute hypoxic respiratory failure due to COVID-19 pneumonia/ ARDS Positive COVID19 Bilateral infiltrates due to COVID19 pneumonia, ? superimposed bacterial pneumonia ( Procal normal) underlying Asthma Mild transaminitis Plan . AC mode, low TV, Improving ABG. will wean PEEP and FIO2. ,keep oxygen saturations greater than 92% Follow ABG and make necessary adjustments. wean sedation Possible CPAP trial in next 24 hr Plaquenil per protocol Bronchodilators Follow CXR Zosyn, azithromycin ( dc on day 5) Follow clinical course Prognosis guarded Monitor LFTs, mild improvement D/W RN ./ RT Total cct 30 min including review of cxr, labs, ABG , discussion with RN/ RT and complex medical decision making and vent management АЛЕКСАНДР SCHULTZ MD Jan 22, 2020 07:56
[2020-01-22 08:30] LABS: BASO % 0 % (0-3); EOS # 0.2 x10^3/uL (0.0-0.7); EOS % 3 % (0-3); HEMATOCRIT 30.8 % (36.0-47.0); HEMOGLOBIN 10.2 g/dL (12.0-15.5); LYMPH # 0.8 x10^3/uL (1.0-4.8); LYMPH % 11 % (24-48); MEAN CORPUSCULAR HEMOGLOBIN 29 pg (25-35); MEAN CORPUSCULAR HGB CONC 33 g/dL (31-37); MEAN CORPUSCULAR VOLUME 86 fL (79-100); MONO # 0.9 x10^3/uL (0.0-1.1); MONO % 14 % (0-9); NEUT # 4.9 x10^3/uL (1.8-7.7); NEUT % 72 % (31-73); PLATELET COUNT 416 x10^3/uL (140-400); RED BLOOD COUNT 3.57 x10^6/uL (3.50-5.40); RED CELL DISTRIBUTION WIDTH 14.2 % (11.5-14.5); WHITE BLOOD COUNT 6.9 x10^3/uL (4.0-11.0)
[2020-01-22 08:31] LABS: CALCIUM 7.9 mg/dL (8.5-10.1); CREATININE 0.6 mg/dL (0.6-1.0); GFR 106.3; MAGNESIUM 1.9 mg/dL (1.8-2.4); PHOSPHORUS 3.1 mg/dL (2.6-4.7); POTASSIUM 3.3 mmol/L (3.5-5.1)
[2020-01-22] MEDS: ZINC SULFATE 220 MG CAPSULE. PO SCH (08:54)
[2020-01-22] MEDS: FAMOTIDINE 20 MG/2 ML VIAL IVP SCH ×2 (08:54→20:15)
[2020-01-22] MEDS: LACTOBACILLUS RHAMNOSUS GG 1 CAPSULE. PO SCH ×2 (08:54→20:14)
[2020-01-22] MEDS: ASCORBIC ACID 500 MG TABLET PO SCH (08:54)
[2020-01-22] MEDS: MULTIVITAMINS,THERAPEUTIC 5 ML ORAL LIQUID. PEG SCH (08:54)
[2020-01-22] MEDS: MIDAZOLAM 100mg/100ml NS BAG 100 ML IV PRN ×2 (10:06→19:33)
[2020-01-22 10:13] LABS: BASE EXCESS ABG 1 mmol/L (-3-3); HCO3 ABG 26 mmol/L (21-28); PCO2 ABG 39 mmHg (35-46); PO2 ABG 138 mmHg (75-108); SAT O2 ABG 99 % (92-99)
[2020-01-22 10:20] LABS: FIO2 ABG 60
--- NOTE | 2020-01-22 12:02 | PDOC ---
PROGRESS NOTES Chief Complaint Chief Complaint 1. Patchy left mid and bibasilar opacities,C/W COVID-19 viral pneumonia. 2. ACUTE HYPOXIC RESP FAILURE 3. COVID-19 POS AG 4. HX ASTHMA 5. History of hysterectomy 6. Overweight 7. Mild transaminitis 8. Borderline diabetic Plan: continue with vent support continue ATB on stop on day 5 monitor hemodynamics further recommendations based on clinical course reassess in the am History of Present Illness History of Present Illness Patient with no acute events reported overnight, continues to require quite a bit ventilatory support. 70% of Fio2 and 8 of PEEP Patient with grim prognosis, decorator consultant recommendations greatly appreciated. Vitals Vitals Vital Signs Date Time Temp Pulse Resp B/P (MAP) Pulse Ox O2 Delivery O2 Flow Rate FiO2 01/22/20 11:49 20 Ventilator 01/22/20 11:00 73 106/68 (81) 97 01/22/20 08:00 99.8 99.8 Physical Exam General: Other (sedated and on the vent) Heart: Regular rate, Normal S1, No murmurs Abdomen: Normal bowel sounds, Soft, No tenderness, No hepatosplenomegaly Extremities: No cyanosis, No edema, Normal pulses Skin: No rashes, No significant lesion Labs LABS Laboratory Tests Test 01/22/20 00:49 01/22/20 08:15 01/22/20 09:40 Glucose (Fingerstick) 98 mg/dL (70-99) White Blood Count 6.9 x10^3/uL (4.0-11.0) Red Blood Count 3.57 x10^6/uL (3.50-5.40) Hemoglobin 10.2 g/dL (12.0-15.5) Hematocrit 30.8 % (36.0-47.0) Mean Corpuscular Volume 86 fL (79-100) Mean Corpuscular Hemoglobin 29 pg (25-35) Mean Corpuscular Hemoglobin Concent 33 g/dL (31-37) Red Cell Distribution Width 14.2 % (11.5-14.5) Platelet Count 416 x10^3/uL (140-400) Neutrophils (%) (Auto) 72 % (31-73) Lymphocytes (%) (Auto) 11 % (24-48) Monocytes (%) (Auto) 14 % (0-9) Eosinophils (%) (Auto) 3 % (0-3) Basophils (%) (Auto) 0 % (0-3) Neutrophils # (Auto) 4.9 x10^3/uL (1.8-7.7) Lymphocytes # (Auto) 0.8 x10^3/uL (1.0-4.8) Monocytes # (Auto) 0.9 x10^3/uL (0.0-1.1) Eosinophils # (Auto) 0.2 x10^3/uL (0.0-0.7) Basophils # (Auto) 0.0 x10^3/uL (0.0-0.2) Sodium Level 139 mmol/L (136-145) Potassium Level 3.3 mmol/L (3.5-5.1) Chloride Level 104 mmol/L (98-107) Carbon Dioxide Level 31 mmol/L (21-32) Anion Gap 4 (6-14) Blood Urea Nitrogen 8 mg/dL (7-20) Creatinine 0.6 mg/dL (0.6-1.0) Estimated GFR (Cockcroft-Gault) 106.3 Glucose Level 111 mg/dL (70-99) Calcium Level 7.9 mg/dL (8.5-10.1) Phosphorus Level 3.1 mg/dL (2.6-4.7) Magnesium Level 1.9 mg/dL (1.8-2.4) O2 Saturation 99 % (92-99) Arterial Blood pH 7.43 (7.35-7.45) Arterial Blood pCO2 at Patient Temp 39 mmHg (35-46) Arterial Blood pO2 at Patient Temp 138 mmHg (75-108) Arterial Blood HCO3 26 mmol/L (21-28) Arterial Blood Base Excess 1 mmol/L (-3-3) FiO2 60 Assessment and Plan Assessmemt and Plan Problems Medical Problems: (1) COVID-19 Status: Acute (2) Dyspnea Status: Acute Comment Review of Relevant I have reviewed the following items augusto (where applicable) has been applied. Labs Laboratory Tests Test 01/20/20 23:09 01/21/20 04:03 01/21/20 06:20 01/21/20 09:35 Glucose (Fingerstick) 90 mg/dL (70-99) 71 mg/dL (70-99) Sodium Level 140 mmol/L (136-145) Potassium Level 3.7 mmol/L (3.5-5.1) Chloride Level 106 mmol/L (98-107) Carbon Dioxide Level 26 mmol/L (21-32) Anion Gap 8 (6-14) Blood Urea Nitrogen 8 mg/dL (7-20) Creatinine 0.6 mg/dL (0.6-1.0) Estimated GFR (Cockcroft-Gault) 106.3 Glucose Level 89 mg/dL (70-99) Calcium Level 8.0 mg/dL (8.5-10.1) Magnesium Level 1.8 mg/dL (1.8-2.4) O2 Saturation 99 % (92-99) Arterial Blood pH 7.41 (7.35-7.45) Arterial Blood pCO2 at Patient Temp 35 mmHg (35-46) Arterial Blood pO2 at Patient Temp 184 mmHg (75-108) Arterial Blood HCO3 22 mmol/L (21-28) Arterial Blood Base Excess -2 mmol/L (-3-3) FiO2 80 Test 01/22/20 00:49 01/22/20 08:15 01/22/20 09:40 Glucose (Fingerstick) 98 mg/dL (70-99) White Blood Count 6.9 x10^3/uL (4.0-11.0) Red Blood Count 3.57 x10^6/uL (3.50-5.40) Hemoglobin 10.2 g/dL (12.0-15.5) Hematocrit 30.8 % (36.0-47.0) Mean Corpuscular Volume 86 fL (79-100) Mean Corpuscular Hemoglobin 29 pg (25-35) Mean Corpuscular Hemoglobin Concent 33 g/dL (31-37) Red Cell Distribution Width 14.2 % (11.5-14.5) Platelet Count 416 x10^3/uL (140-400) Neutrophils (%) (Auto) 72 % (31-73) Lymphocytes (%) (Auto) 11 % (24-48) Monocytes (%) (Auto) 14 % (0-9) Eosinophils (%) (Auto) 3 % (0-3) Basophils (%) (Auto) 0 % (0-3) Neutrophils # (Auto) 4.9 x10^3/uL (1.8-7.7) Lymphocytes # (Auto) 0.8 x10^3/uL (1.0-4.8) Monocytes # (Auto) 0.9 x10^3/uL (0.0-1.1) Eosinophils # (Auto) 0.2 x10^3/uL (0.0-0.7) Basophils # (Auto) 0.0 x10^3/uL (0.0-0.2) Sodium Level 139 mmol/L (136-145) Potassium Level 3.3 mmol/L (3.5-5.1) Chloride Level 104 mmol/L (98-107) Carbon Dioxide Level 31 mmol/L (21-32) Anion Gap 4 (6-14) Blood Urea Nitrogen 8 mg/dL (7-20) Creatinine 0.6 mg/dL (0.6-1.0) Estimated GFR (Cockcroft-Gault) 106.3 Glucose Level 111 mg/dL (70-99) Calcium Level 7.9 mg/dL (8.5-10.1) Phosphorus Level 3.1 mg/dL (2.6-4.7) Magnesium Level 1.9 mg/dL (1.8-2.4) O2 Saturation 99 % (92-99) Arterial Blood pH 7.43 (7.35-7.45) Arterial Blood pCO2 at Patient Temp 39 mmHg (35-46) Arterial Blood pO2 at Patient Temp 138 mmHg (75-108) Arterial Blood HCO3 26 mmol/L (21-28) Arterial Blood Base Excess 1 mmol/L (-3-3) FiO2 60 Laboratory Tests Test 01/22/20 00:49 01/22/20 08:15 01/22/20 09:40 Glucose (Fingerstick) 98 mg/dL (70-99) White Blood Count 6.9 x10^3/uL (4.0-11.0) Red Blood Count 3.57 x10^6/uL (3.50-5.40) Hemoglobin 10.2 g/dL (12.0-15.5) Hematocrit 30.8 % (36.0-47.0) Mean Corpuscular Volume 86 fL (79-100) Mean Corpuscular Hemoglobin 29 pg (25-35) Mean Corpuscular Hemoglobin Concent 33 g/dL (31-37) Red Cell Distribution Width 14.2 % (11.5-14.5) Platelet Count 416 x10^3/uL (140-400) Neutrophils (%) (Auto) 72 % (31-73) Lymphocytes (%) (Auto) 11 % (24-48) Monocytes (%) (Auto) 14 % (0-9) Eosinophils (%) (Auto) 3 % (0-3) Basophils (%) (Auto) 0 % (0-3) Neutrophils # (Auto) 4.9 x10^3/uL (1.8-7.7) Lymphocytes # (Auto) 0.8 x10^3/uL (1.0-4.8) Monocytes # (Auto) 0.9 x10^3/uL (0.0-1.1) Eosinophils # (Auto) 0.2 x10^3/uL (0.0-0.7) Basophils # (Auto) 0.0 x10^3/uL (0.0-0.2) Sodium Level 139 mmol/L (136-145) Potassium Level 3.3 mmol/L (3.5-5.1) Chloride Level 104 mmol/L (98-107) Carbon Dioxide Level 31 mmol/L (21-32) Anion Gap 4 (6-14) Blood Urea Nitrogen 8 mg/dL (7-20) Creatinine 0.6 mg/dL (0.6-1.0) Estimated GFR (Cockcroft-Gault) 106.3 Glucose Level 111 mg/dL (70-99) Calcium Level 7.9 mg/dL (8.5-10.1) Phosphorus Level 3.1 mg/dL (2.6-4.7) Magnesium Level 1.9 mg/dL (1.8-2.4) O2 Saturation 99 % (92-99) Arterial Blood pH 7.43 (7.35-7.45) Arterial Blood pCO2 at Patient Temp 39 mmHg (35-46) Arterial Blood pO2 at Patient Temp 138 mmHg (75-108) Arterial Blood HCO3 26 mmol/L (21-28) Arterial Blood Base Excess 1 mmol/L (-3-3) FiO2 60 Microbiology 01/16/20 Blood Culture - Final, Complete NO GROWTH AFTER 5 DAYS Medications Current Medications Sodium Chloride (Normal Saline Flush) 3 ml QSHIFT PRN IV AFTER MEDS AND BLOOD DRAWS; Start 01/15/20 at 15:45 Sodium Chloride 1,000 ml @ 20 mls/hr Q24H IV Last administered on 01/22/20at 06:47; Start 01/15/20 at 15:40 Ondansetron HCl (Zofran) 4 mg PRN Q4HRS PRN IV NAUSEA/VOMITING Last administered on 01/17/20at 09:30; Start 01/15/20 at 15:45 Acetaminophen (Tylenol) 650 mg PRN Q4HRS PRN PO TEMP OVER 100.4F OR MILD PAIN Last administered on 01/16/20at 20:17; Start 01/15/20 at 15:45 Al Hydroxide/Mg Hydroxide (Mylanta Plus Xs) 30 ml PRN DAILY PRN PO HEARTBURN / GAS; Start 01/15/20 at 15:45 Clonidine HCl (Catapres) 0.1 mg PRN Q6HRS PRN PO SBP>160 OR DBP>90; Start 01/15/20 at 15:45 Sodium Monofluorophosphate (Fleet Adult) 133 ml PRN DAILY PRN SD CONSTIPATION; Start 01/15/20 at 15:45; Stop 01/21/20 at 09:37; Status DC Docusate Sodium (Colace) 100 mg PRN BID PRN PO CONSTIPATION; Start 01/15/20 at 15:45 Albuterol Sulfate (Ventolin Neb Soln) 2.5 mg PRN Q4HRS PRN NEB SHORTNESS OF BREATH Last administered on 01/16/20at 08:55; Start 01/15/20 at 15:45; Stop 01/16/20 at 11:22; Status DC Guaifenesin (Robitussin) 200 mg PRN Q4HRS PRN PO COUGH Last administered on 01/16/20at 06:14; Start 01/15/20 at 15:45; Stop 01/16/20 at 11:22; Status DC Lorazepam (Ativan) 0.5 mg PRN Q4HRS PRN PO ANXIETY / AGITATION Last administered on 01/17/20at 09:30; Start 01/15/20 at 15:45 Enoxaparin Sodium (Lovenox 40mg Syringe) 40 mg Q24H SQ Last administered on 01/21/20at 15:24; Start 01/15/20 at 16:00 Piperacillin Sod/ Tazobactam Sod 3.375 gm/Sodium Chloride 50 ml @ 100 mls/hr Q6HRS IV Last administered on 01/22/20at 11:53; Start 01/15/20 at 16:00 Hydroxychloroquine Sulfate (Plaquenil) 400 mg 1X ONCE PO Last administered on 01/15/20at 16:15; Start 01/15/20 at 16:15; Stop 01/15/20 at 16:16; Status DC Acetaminophen/ Hydrocodone Bitart (Lortab 5/325) 1 tab PRN Q4HRS PRN PO MODERATE PAIN 4-6 Last administered on 01/17/20at 09:31; Start 01/15/20 at 23:30 Albuterol Sulfate (Ventolin Neb Soln) 2.5 mg PRN QID PRN NEB SHORTNESS OF BREATH Last administered on 01/17/20at 10:19; Start 01/16/20 at 11:30 Azithromycin 500 mg/Sodium Chloride 250 ml @ 250 mls/hr Q24H IV Last admi nistered on 01/20/20at 12:42; Start 01/16/20 at 12:00; Stop 01/20/20 at 14:46; Status DC Throat Lozenges (Cepacol Sore Throat Lozenge) 1 salima PRN Q2HRS PRN PO SORE THROAT Last administered on 01/16/20at 20:17; Start 01/16/20 at 11:30 Guaifenesin/ Codeine Phosphate (Robitussin Ac) 5 ml PRN Q6HRS PRN PO COUGH Last administered on 01/16/20at 19:06; Start 01/16/20 at 11:30; Stop 01/17/20 at 09:14; Status DC Hydroxychloroquine Sulfate (Plaquenil) 200 mg BID PO Last administered on 01/19/20at 20:49; Start 01/16/20 at 12:00; Stop 01/19/20 at 21:01; Status DC Sodium Chloride 1,000 ml @ 1,440 mls/hr Q42M IV ; Start 01/16/20 at 15:00; Stop 01/16/20 at 16:00; Status DC Sodium Chloride 500 ml @ 1,000 mls/hr PRN Q30MIN PRN IV SEE COMMENTS; Start 01/16/20 at 15:00 Lactobacillus Rhamnosus (Culturelle) 1 cap BID PO Last administered on 01/22/20 08:54; Start 01/16/20 at 21:00 Guaifenesin/ Codeine Phosphate (Robitussin Ac) 5 ml PRN Q4HRS PRN PO COUGH Last administered on 01/17/20 09:31; Start 01/17/20 at 09:15 Fentanyl Citrate 30 ml @ 0 mls/hr CONT PRN IV SEE PROTOCOL Last administered on 01/22/20at 11:49; Start 01/17/20 at 20:15 Fentanyl Citrate (Fentanyl 2ml Vial) 25 mcg PRN Q1HR PRN IV SEE COMMENTS; Start 01/17/20 at 20:15 Fentanyl Citrate (Fentanyl 2ml Vial) 50 mcg PRN Q1HR PRN IV SEE COMMENTS; Start 01/17/20 at 20:15 Midazolam HCl 100 ml @ 0 mls/hr CONT PRN IV SEE PROTOCOL Last administered on 01/22/20at 10:06; Start 01/17/20 at 20:15 Succinylcholine Chloride (Anectine) 200 mg STK-MED ONCE .ROUTE ; Start 01/17/20 at 20:12; Stop 01/17/20 at 20:12; Status DC Vecuronium [place] (Norcuron Bolus) 10 mg STK-MED ONCE IV ; Start 01/17/20 at 20:12; Stop 01/17/20 at 20:12; Status DC Etomidate (Amidate) 20 mg STK-MED ONCE IV ; Start 01/17/20 at 20:33; Stop 01/17/20 at 20:33; Status DC Famotidine (Pepcid Vial) 20 mg BID IVP Last administered on 01/22/20 08:54; Start 01/18/20 at 21:00 Multivitamins/ Minerals Therapeutic (Centrum Multivit-Mineral Liq) 5 ml DAILY PEG Last administered on 01/22/20 08:54; Start 01/19/20 at 09:00 Ascorbic Acid (Vitamin C) 500 mg DAILY PO Last administered on 01/22/20 08:54; Start 01/18/20 at 15:00 Zinc Sulfate (Orazinc) 220 mg DAILY PO Last administered on 01/22/20 08:54; Start 01/18/20 at 15:00 Amino Acids/ Glycerin/ Electrolytes 1,000 ml @ 80 mls/hr [id number] IV Last administered on 01/22/20at 10:07; Start 01/19/20 at 13:45 Potassium Chloride/Water 100 ml @ 100 mls/hr Q1H IV Last administered on 01/19/20at 22:10; Start 01/19/20 at 19:00; Stop 01/19/20 at 20:59; Status DC Alteplase, Recombinant (Cathflo For Central Catheter Clearance) 1 mg 1X ONCE INT CAT Last administered on 01/21/20at 10:00; Start 01/21/20 at 10:00; Stop 01/21/20 at 10:01; Status DC Norepinephrine Bitartrate 8 mg/ Dextrose 258 ml @ 18.189 mls/ hr CONT PRN IV PER PROTOCOL Last administered on 01/21/20at 14:10; Start 01/21/20 at 10:45 Alteplase, Recombinant (Cathflo For Central Catheter Clearance) 3 mg 1X ONCE INT CAT Last administered on 01/22/20at 05:28; Start 01/22/20 at 05:15; Stop 01/22/20 at 05:16; Status DC Active Scripts Active Reported Flovent 110MCG Hfa (Fluticasone Propionate) 12 Gm Aer.w.adap 2 Puff IH BID Proair Hfa Inhaler (Albuterol Sulfate) 8.5 Gm Hfa.aer.ad 2 Puff IH PRN Q4-6HRS PRN 21 Days Cetirizine Hcl 10 Mg Tablet 1 Tab PO DAILY Premarin (Estrogens, Conjugated) 0.45 Mg Tablet 1 Tab PO DAILY Vitals/I & O Vital Sign - Last 24 Hours 01/21/20 01/21/20 01/21/20 01/21/20 12:45 13:00 13:08 14:00 Pulse 66 86 Resp 13 14 23 B/P (MAP) 97/58 (71) 93/62 (72) Pulse Ox 99 100 98 99 O2 Delivery Ventilator Ventilator Ventilator 01/21/20 01/21/20 01/21/20 01/21/20 15:00 15:45 16:00 16:00 Pulse 70 82 Resp 14 14 B/P (MAP) 150/66 (94) 103/76 (85) Pulse Ox 100 100 99 O2 Delivery Ventilator Mechanical Ventilator Ventilator 01/21/20 01/21/20 01/21/2001/20/20 17:00 18:00 19:30 19:54 Temp 99.9 99.9 Pulse 68 84 79 77 Resp 14 14 15 B/P (MAP) 138/66 (90) 138/66 (90) 111/60 (77) 111/55 (73) Pulse Ox 100 100 100 100 O2 Delivery Ventilator Ventilator Ventilator Ventilator 01/21/20 01/21/20 01/21/20 01/21/20 20:00 20:15 21:15 21:22 Pulse 84 Resp 14 14 B/P (MAP) 110/52 (71) Pulse Ox 100 100 99 O2 Delivery Mechanical Ventilator Ventilator Ventilator 01/21/20 01/21/20 01/21/20 01/22/20 21:55 22:20 23:30 00:00 Pulse 74 74 Resp 19 14 14 B/P (MAP) 115/64 (81) 114/61 (78) Pulse Ox 99 99 100 O2 Delivery Ventilator Ventilator Ventilator Mechanical Ventilator 01/22/20 01/22/20 01/22/20 01/22/20 00:20 00:30 01:30 02:30 Temp 99.3 99.3 Pulse 72 72 72 Resp 14 14 14 B/P (MAP) 114/62 (79) 114/62 (79) 103/53 (70) Pulse Ox 100 99 100 100 O2 Delivery Ventilator Ventilator Ventilator 01/22/20 01/22/20 01/22/20 01/22/20 04:00 04:30 05:00 06:00 Pulse 74 74 Resp 14 14 B/P (MAP) 100/60 (73) 86/51 (63) Pulse Ox 99 100 98 O2 Delivery Mechanical Ventilator Ventilator Ventilator 01/22/20 01/22/20 01/22/20 01/22/20 06:46 07:00 08:00 09:00 Temp 99.8 99.8 Pulse 72 66 68 Resp 14 13 16 13 B/P (MAP) 92/56 (68) 82/69 (73) 115/64 (81) Pulse Ox 99 98 98 99 O2 Delivery Ventilator Ventilator Ventilator 01/22/20 01/22/20 01/22/20 01/22/20 09:30 10:00 10:30 11:00 Pulse 66 64 68 73 Resp 14 13 13 13 B/P (MAP) 113/65 (81) 110/69 (83) 100/55 (70) 106/68 (81) Pulse Ox 99 99 98 97 O2 Delivery Ventilator Ventilator Ventilator Ventilator 01/22/20 11:49 Resp 20 O2 Delivery Ventilator Intake and Output 01/21/20 01/21/20 01/22/20 15:00 23:00 07:00 Intake Total 160 ml 2544.56 ml 100 ml Output Total 190 ml 655 ml 1150 ml Balance -30 ml 1889.56 ml -1050 ml CORNELIUS DURON MD Jan 22, 2020 12:02
[2020-01-22] MEDS ORDERED: POTASSIUM CHLORIDE 20 MEQ TABLET.ER. PO ONE (14:30)
[2020-01-22] MEDS: ENOXAPARIN 40 MG/0.4 ML SYRINGE. SQ SCH (15:26)
[2020-01-23] VITALS (24 sets, daily range): BP systolic 86–124; BP diastolic 47–85
[2020-01-23] MEDS: AMINO AC 3%/ELECTROLYTE/GLYCER 1,000 ML IV SCH ×2 (01:31→16:05)
[2020-01-23] MEDS: PIPERACILLIN/TAZOBACTAM 3.375 GM in IV NORMAL SALINE 50ML 50 ML IV SCH ×3 (05:50→16:47)
[2020-01-23] MEDS: MIDAZOLAM 100mg/100ml NS BAG 100 ML IV PRN (05:51)
[2020-01-23 06:32] LABS: BASO % 1 % (0-3); EOS # 0.2 x10^3/uL (0.0-0.7); EOS % 2 % (0-3); HEMATOCRIT 30.3 % (36.0-47.0); LYMPH # 0.9 x10^3/uL (1.0-4.8); LYMPH % 12 % (24-48); MEAN CORPUSCULAR HEMOGLOBIN 29 pg (25-35); MEAN CORPUSCULAR HGB CONC 33 g/dL (31-37); MEAN CORPUSCULAR VOLUME 87 fL (79-100); MONO # 0.9 x10^3/uL (0.0-1.1); MONO % 12 % (0-9); NEUT # 5.2 x10^3/uL (1.8-7.7); NEUT % 73 % (31-73); PLATELET COUNT 365 x10^3/uL (140-400); RED BLOOD COUNT 3.47 x10^6/uL (3.50-5.40); RED CELL DISTRIBUTION WIDTH 14.6 % (11.5-14.5); WHITE BLOOD COUNT 7.1 x10^3/uL (4.0-11.0)
[2020-01-23 06:44] LABS: CALCIUM 8.3 mg/dL (8.5-10.1); CREATININE 0.5 mg/dL (0.6-1.0); GFR 131.1
[2020-01-23 06:56] LABS: POTASSIUM 5.1 mmol/L (3.5-5.1)
[2020-01-23] MEDS: LACTOBACILLUS RHAMNOSUS GG 1 CAPSULE. PO SCH ×2 (07:58→20:25)
[2020-01-23] MEDS: ZINC SULFATE 220 MG CAPSULE. PO SCH (07:58)
[2020-01-23] MEDS: MULTIVITAMINS,THERAPEUTIC 5 ML ORAL LIQUID. PEG SCH (07:58)
[2020-01-23] MEDS: ASCORBIC ACID 500 MG TABLET PO SCH (08:02)
[2020-01-23] MEDS: FAMOTIDINE 20 MG/2 ML VIAL IVP SCH ×2 (08:02→20:25)
[2020-01-23] MEDS ORDERED: ONDANSETRON PF 4 MG/2 ML VIAL. IVP PRN (08:30)
--- NOTE | 2020-01-23 09:58 | PDOC ---
PROGRESS NOTES Chief Complaint Chief Complaint 1. Patchy left mid and bibasilar opacities,C/W COVID-19 viral pneumonia. 2. ACUTE HYPOXIC RESP FAILURE 3. COVID-19 POS AG 4. HX ASTHMA 5. History of hysterectomy 6. Overweight 7. Mild transaminitis 8. Borderline diabetic Plan: continue with vent support mild improvement, will follow recommendations from pulm natural remedy consultant monitor hemodynamics further recommendations based on clinical course reassess in the am History of Present Illness History of Present Illness Patient with no acute events reported overnight, continues to require quite a bit ventilatory support. Patient with grim prognosis, natural remedy consultant recommendations greatly appreciated. Vitals Vitals Vital Signs Date Time Temp Pulse Resp B/P (MAP) Pulse Ox O2 Delivery O2 Flow Rate FiO2 01/23/20 09:00 68 14 107/69 (82) 96 Ventilator 01/23/20 08:00 98.5 98.5 01/22/20 16:00 8.0 Physical Exam General: Other (sedated and on the vent) Heart: Regular rate, Normal S1, No murmurs Abdomen: Normal bowel sounds, Soft, No tenderness, No hepatosplenomegaly Extremities: No cyanosis, No edema, Normal pulses Skin: No rashes, No significant lesion Labs LABS Laboratory Tests Test 01/23/20 05:40 White Blood Count 7.1 x10^3/uL (4.0-11.0) Red Blood Count 3.47 x10^6/uL (3.50-5.40) Hemoglobin 10.0 g/dL (12.0-15.5) Hematocrit 30.3 % (36.0-47.0) Mean Corpuscular Volume 87 fL (79-100) Mean Corpuscular Hemoglobin 29 pg (25-35) Mean Corpuscular Hemoglobin Concent 33 g/dL (31-37) Red Cell Distribution Width 14.6 % (11.5-14.5) Platelet Count 365 x10^3/uL (140-400) Neutrophils (%) (Auto) 73 % (31-73) Lymphocytes (%) (Auto) 12 % (24-48) Monocytes (%) (Auto) 12 % (0-9) Eosinophils (%) (Auto) 2 % (0-3) Basophils (%) (Auto) 1 % (0-3) Neutrophils # (Auto) 5.2 x10^3/uL (1.8-7.7) Lymphocytes # (Auto) 0.9 x10^3/uL (1.0-4.8) Monocytes # (Auto) 0.9 x10^3/uL (0.0-1.1) Eosinophils # (Auto) 0.2 x10^3/uL (0.0-0.7) Basophils # (Auto) 0.0 x10^3/uL (0.0-0.2) Sodium Level 134 mmol/L (136-145) Potassium Level 5.1 mmol/L (3.5-5.1) Chloride Level 101 mmol/L (98-107) Carbon Dioxide Level 28 mmol/L (21-32) Anion Gap 5 (6-14) Blood Urea Nitrogen 8 mg/dL (7-20) Creatinine 0.5 mg/dL (0.6-1.0) Estimated GFR (Cockcroft-Gault) 131.1 Glucose Level 119 mg/dL (70-99) Calcium Level 8.3 mg/dL (8.5-10.1) Assessment and Plan Assessmemt and Plan Problems Medical Problems: (1) COVID-19 Status: Acute (2) Dyspnea Status: Acute Comment Review of Relevant I have reviewed the following items augusto (where applicable) has been applied. Labs Laboratory Tests Test 01/22/20 00:49 01/22/20 08:15 01/22/20 09:40 01/23/20 05:40 Glucose (Fingerstick) 98 mg/dL (70-99) White Blood Count 6.9 x10^3/uL (4.0-11.0) 7.1 x10^3/uL (4.0-11.0) Red Blood Count 3.57 x10^6/uL (3.50-5.40) 3.47 x10^6/uL (3.50-5.40) Hemoglobin 10.2 g/dL (12.0-15.5) 10.0 g/dL (12.0-15.5) Hematocrit 30.8 % (36.0-47.0) 30.3 % (36.0-47.0) Mean Corpuscular Volume 86 fL (79-100) 87 fL (79-100) Mean Corpuscular Hemoglobin 29 pg (25-35) 29 pg (25-35) Mean Corpuscular Hemoglobin Concent 33 g/dL (31-37) 33 g/dL (31-37) Red Cell Distribution Width 14.2 % (11.5-14.5) 14.6 % (11.5-14.5) Platelet Count 416 x10^3/uL (140-400) 365 x10^3/uL (140-400) Neutrophils (%) (Auto) 72 % (31-73) 73 % (31-73) Lymphocytes (%) (Auto) 11 % (24-48) 12 % (24-48) Monocytes (%) (Auto) 14 % (0-9) 12 % (0-9) Eosinophils (%) (Auto) 3 % (0-3) 2 % (0-3) Basophils (%) (Auto) 0 % (0-3) 1 % (0-3) Neutrophils # (Auto) 4.9 x10^3/uL (1.8-7.7) 5.2 x10^3/uL (1.8-7.7) Lymphocytes # (Auto) 0.8 x10^3/uL (1.0-4.8) 0.9 x10^3/uL (1.0-4.8) Monocytes # (Auto) 0.9 x10^3/uL (0.0-1.1) 0.9 x10^3/uL (0.0-1.1) Eosinophils # (Auto) 0.2 x10^3/uL (0.0-0.7) 0.2 x10^3/uL (0.0-0.7) Basophils # (Auto) 0.0 x10^3/uL (0.0-0.2) 0.0 x10^3/uL (0.0-0.2) Sodium Level 139 mmol/L (136-145) 134 mmol/L (136-145) Potassium Level 3.3 mmol/L (3.5-5.1) 5.1 mmol/L (3.5-5.1) Chloride Level 104 mmol/L (98-107) 101 mmol/L (98-107) Carbon Dioxide Level 31 mmol/L (21-32) 28 mmol/L (21-32) Anion Gap 4 (6-14) 5 (6-14) Blood Urea Nitrogen 8 mg/dL (7-20) 8 mg/dL (7-20) Creatinine 0.6 mg/dL (0.6-1.0) 0.5 mg/dL (0.6-1.0) Estimated GFR (Cockcroft-Gault) 106.3 131.1 Glucose Level 111 mg/dL (70-99) 119 mg/dL (70-99) Calcium Level 7.9 mg/dL (8.5-10.1) 8.3 mg/dL (8.5-10.1) Phosphorus Level 3.1 mg/dL (2.6-4.7) Magnesium Level 1.9 mg/dL (1.8-2.4) O2 Saturation 99 % (92-99) Arterial Blood pH 7.43 (7.35-7.45) Arterial Blood pCO2 at Patient Temp 39 mmHg (35-46) Arterial Blood pO2 at Patient Temp 138 mmHg (75-108) Arterial Blood HCO3 26 mmol/L (21-28) Arterial Blood Base Excess 1 mmol/L (-3-3) FiO2 60 Laboratory Tests Test 01/23/20 05:40 White Blood Count 7.1 x10^3/uL (4.0-11.0) Red Blood Count 3.47 x10^6/uL (3.50-5.40) Hemoglobin 10.0 g/dL (12.0-15.5) Hematocrit 30.3 % (36.0-47.0) Mean Corpuscular Volume 87 fL (79-100) Mean Corpuscular Hemoglobin 29 pg (25-35) Mean Corpuscular Hemoglobin Concent 33 g/dL (31-37) Red Cell Distribution Width 14.6 % (11.5-14.5) Platelet Count 365 x10^3/uL (140-400) Neutrophils (%) (Auto) 73 % (31-73) Lymphocytes (%) (Auto) 12 % (24-48) Monocytes (%) (Auto) 12 % (0-9) Eosinophils (%) (Auto) 2 % (0-3) Basophils (%) (Auto) 1 % (0-3) Neutrophils # (Auto) 5.2 x10^3/uL (1.8-7.7) Lymphocytes # (Auto) 0.9 x10^3/uL (1.0-4.8) Monocytes # (Auto) 0.9 x10^3/uL (0.0-1.1) Eosinophils # (Auto) 0.2 x10^3/uL (0.0-0.7) Basophils # (Auto) 0.0 x10^3/uL (0.0-0.2) Sodium Level 134 mmol/L (136-145) Potassium Level 5.1 mmol/L (3.5-5.1) Chloride Level 101 mmol/L (98-107) Carbon Dioxide Level 28 mmol/L (21-32) Anion Gap 5 (6-14) Blood Urea Nitrogen 8 mg/dL (7-20) Creatinine 0.5 mg/dL (0.6-1.0) Estimated GFR (Cockcroft-Gault) 131.1 Glucose Level 119 mg/dL (70-99) Calcium Level 8.3 mg/dL (8.5-10.1) Microbiology 01/16/20 Blood Culture - Final, Complete NO GROWTH AFTER 5 DAYS Medications Current Medications Sodium Chloride (Normal Saline Flush) 3 ml QSHIFT PRN IV AFTER MEDS AND BLOOD DRAWS; Start 01/15/20 at 15:45 Sodium Chloride 1,000 ml @ 20 mls/hr Q24H IV Last administered on 01/22/20at 20:14; Start 01/15/20 at 15:40 Ondansetron HCl (Zofran) 4 mg PRN Q4HRS PRN IV NAUSEA/VOMITING Last administered on 01/17/20at 09:30; Start 01/15/20 at 15:45 Acetaminophen (Tylenol) 650 mg PRN Q4HRS PRN PO TEMP OVER 100.4F OR MILD PAIN Last administered on 01/16/20at 20:17; Start 01/15/20 at 15:45 Al Hydroxide/Mg Hydroxide (Mylanta Plus Xs) 30 ml PRN DAILY PRN PO HEARTBURN / GAS; Start 01/15/20 at 15:45 Clonidine HCl (Catapres) 0.1 mg PRN Q6HRS PRN PO SBP>160 OR DBP>90; Start 01/15/20 at 15:45 Sodium Monofluorophosphate (Fleet Adult) 133 ml PRN DAILY PRN [place] CONSTIPATION; Start 01/15/20 at 15:45; Stop 01/21/20 at 09:37; Status DC Docusate Sodium (Colace) 100 mg PRN BID PRN PO CONSTIPATION; Start 01/15/20 at 15:45 Albuterol Sulfate (Ventolin Neb Soln) 2.5 mg PRN Q4HRS PRN NEB SHORTNESS OF BREATH Last administered on 01/16/20at 08:55; Start 01/15/20 at 15:45; Stop 01/16/20 at 11:22; Status DC Guaifenesin (Robitussin) 200 mg PRN Q4HRS PRN PO COUGH Last administered on 01/16/20at 06:14; Start 01/15/20 at 15:45; Stop 01/16/20 at 11:22; Status DC Lorazepam (Ativan) 0.5 mg PRN Q4HRS PRN PO ANXIETY / AGITATION Last administered on 01/17/20at 09:30; Start 01/15/20 at 15:45 Enoxaparin Sodium (Lovenox 40mg Syringe) 40 mg Q24H SQ Last administered on 01/22/20at 15:26; Start 01/15/20 at 16:00 Piperacillin Sod/ Tazobactam Sod 3.375 gm/Sodium Chloride 50 ml @ 100 mls/hr Q6HRS IV Last administered on 01/23/20at 05:50; Start 01/15/20 at 16:00 Hydroxychloroquine Sulfate (Plaquenil) 400 mg 1X ONCE PO Last administered on 01/15/20at 16:15; Start 01/15/20 at 16:15; Stop 01/15/20 at 16:16; Status DC Acetaminophen/ Hydrocodone Bitart (Lortab 5/325) 1 tab PRN Q4HRS PRN PO MODERATE PAIN 4-6 Last administered on 01/17/20at 09:31; Start 01/15/20 at 23:30 Albuterol Sulfate (Ventolin Neb Soln) 2.5 mg PRN QID PRN NEB SHORTNESS OF BREATH Last administered on 01/17/20at 10:19; Start 01/16/20 at 11:30 Azithromycin 500 mg/Sodium Chloride 250 ml @ 250 mls/hr Q24H IV Last administered on 01/20/20at 12:42; Start 01/16/20 at 12:00; Stop 01/20/20 at 14:46; Status DC Throat Lozenges (Cepacol Sore Throat Lozenge) 1 salima PRN Q2HRS PRN PO SORE THROAT Last administered on 01/16/20at 20:17; Start 01/16/20 at 11:30 Guaifenesin/ Codeine Phosphate (Robitussin Ac) 5 ml PRN Q6HRS PRN PO COUGH Last administered on 01/16/20at 19:06; Start 01/16/20 at 11:30; Stop 01/17/20 at 09:14; Status DC Hydroxychloroquine Sulfate (Plaquenil) 200 mg BID PO Last administered on at 20:49; Start 01/16/20 at 12:00; Stop 01/19/20 at 21:01; Status DC Sodium Chloride 1,000 ml @ 1,440 mls/hr Q42M IV ; Start 01/16/20 at 15:00; Stop 01/16/20 at 16:00; Status DC Sodium Chloride 500 ml @ 1,000 mls/hr PRN Q30MIN PRN IV SEE COMMENTS; Start 01/16/20 at 15:00 Lactobacillus Rhamnosus (Culturelle) 1 cap BID PO Last administered on 01/23/20at 07:58; Start 01/16/20 at 21:00 Guaifenesin/ Codeine Phosphate (Robitussin Ac) 5 ml PRN Q4HRS PRN PO COUGH Last administered on 01/17/20at 09:31; Start 01/17/20 at 09:15 Fentanyl Citrate 30 ml @ 0 mls/hr CONT PRN IV SEE PROTOCOL Last administered on 01/23/20at 08:07; Start 01/17/20 at 20:15 Fentanyl Citrate (Fentanyl 2ml Vial) 25 mcg PRN Q1HR PRN IV SEE COMMENTS; Start 01/17/20 at 20:15 Fentanyl Citrate (Fentanyl 2ml Vial) 50 mcg PRN Q1HR PRN IV SEE COMMENTS; Start 01/17/20 at 20:15 Midazolam HCl 100 ml @ 0 mls/hr CONT PRN IV SEE PROTOCOL Last administered on 01/23/20at 05:51; Start 01/17/20 at 20:15 Succinylcholine Chloride (Anectine) 200 mg STK-MED ONCE .ROUTE ; Start 01/17/20 at 20:12; Stop 01/17/20 at 20:12; Status DC Vecuronium [place] (Norcuron Bolus) 10 mg STK-MED ONCE IV ; Start 01/17/20 at 20:12; Stop 01/17/20 at 20:12; Status DC Etomidate (Amidate) 20 mg STK-MED ONCE IV ; Start 01/17/20 at 20:33; Stop 01/17/20 at 20:33; Status DC Famotidine (Pepcid Vial) 20 mg BID IVP Last administered on 01/23/20at 08:02; Start 01/18/20 at 21:00 Multivitamins/ Minerals Therapeutic (Centrum Multivit-Mineral Liq) 5 ml DAILY PEG Last administered on 01/23/20at 07:58; Start 01/19/20 at 09:00 Ascorbic Acid (Vitamin C) 500 mg DAILY PO Last administered on 01/23/20at 08:02; Start 01/18/20 at 15:00 Zinc Sulfate (Orazinc) 220 mg DAILY PO Last administered on 01/23/20at 07:58; Start 01/18/20 at 15:00 Amino Acids/ Glycerin/ Electrolytes 1,000 ml @ 80 mls/hr [id number] IV Last administered on 01/23/20at 01:31; Start 01/19/20 at 13:45 Potassium Chloride/Water 100 ml @ 100 mls/hr Q1H IV Last administered on 01/19/20at 22:10; Start 01/19/20 at 19:00; Stop 01/19/20 at 20:59; Status DC Alteplase, Recombinant (Cathflo For Central Catheter Clearance) 1 mg 1X ONCE INT CAT Last administered on 01/21/20at 10:00; Start 01/21/20 at 10:00; Stop 01/21/20 at 10:01; Status DC Norepinephrine Bitartrate 8 mg/ Dextrose 258 ml @ 18.189 mls/ hr CONT PRN IV PER PROTOCOL Last administered on 01/21/20at 14:10; Start 01/21/20 at 10:45 Alteplase, Recombinant (Cathflo For Central Catheter Clearance) 3 mg 1X ONCE INT CAT Last administered on 01/22/20at 05:28; Start 01/22/20 at 05:15; Stop 01/22/20 at 05:16; Status DC Potassium Chloride (Klor-Con) 40 meq 1X ONCE PO Last administered on 01/22/20at 15:26; Start 01/22/20 at 14:30; Stop 01/22/20 at 14:31; Status DC Ondansetron HCl (Zofran) 4 mg PRN Q6HRS PRN IVP NAUSEA/VOMITING; Start 01/23/20 at 08:30 Active Scripts Active Reported Flovent 110MCG Hfa (Fluticasone Propionate) 12 Gm Aer.w.adap 2 Puff IH BID Proair Hfa Inhaler (Albuterol Sulfate) 8.5 Gm Hfa.aer.ad 2 Puff IH PRN Q4-6HRS PRN 21 Days Cetirizine Hcl 10 Mg Tablet 1 Tab PO DAILY Premarin (Estrogens, Conjugated) 0.45 Mg Tablet 1 Tab PO DAILY Vitals/I & O Vital Sign - Last 24 Hours 01/22/20 01/22/20 01/22/20 01/22/20 10:00 10:30 11:00 11:49 Pulse 64 68 73 Resp 13 13 13 20 B/P (MAP) 110/69 (83) 100/55 (70) 106/68 (81) Pulse Ox 99 98 97 O2 Delivery Ventilator Ventilator Ventilator Ventilator 01/22/20 01/22/20 01/22/20 01/22/20 12:00 12:00 12:10 12:30 Temp 97.8 97.8 Pulse 74 68 Resp 16 15 B/P (MAP) 115/74 (88) 120/76 (91) Pulse Ox 97 98 98 O2 Delivery Ventilator Mechanical Ventilator Ventilator Ventilator O2 Flow Rate 8.0 01/22/20 01/22/20 01/22/20 01/22/20 13:00 13:30 14:00 15:00 Pulse 80 72 68 82 Resp 16 16 13 14 B/P (MAP) 104/64 (77) 109/61 (77) 117/67 (84) 98/63 (75) Pulse Ox 99 99 99 99 O2 Delivery Ventilator Ventilator Ventilator Ventilator 01/22/20 01/22/20 01/22/20 01/22/20 15:25 16:00 16:00 17:00 Temp 98.2 98.2 Pulse 78 92 Resp 20 14 14 B/P (MAP) 96/62 (73) 100/59 (73) Pulse Ox 99 99 O2 Delivery Ventilator Ventilator Mechanical Ventilator Ventilator O2 Flow Rate 8.0 01/22/20 01/22/20 01/22/20 01/22/20 17:36 18:00 19:00 19:45 Pulse 80 84 Resp 14 14 B/P (MAP) 101/61 (74) 99/59 (72) Pulse Ox 98 95 98 O2 Delivery Ventilator Ventilator Ventilator Mechanical Ventilator 01/22/20 01/22/20 01/22/20 01/22/20 20:00 20:29 21:00 22:00 Temp 99.0 99.0 Pulse 86 82 84 Resp 15 14 14 B/P (MAP) 103/58 (73) 93/59 (70) 99/61 (74) Pulse Ox 97 98 95 98 O2 Delivery Ventilator Ventilator Ventilator Ventilator 01/22/20 01/23/20 01/23/20 01/23/20 23:00 00:00 00:00 01:00 Temp 100.4 100.4 Pulse 80 81 88 Resp 14 14 14 B/P (MAP) 100/53 (69) 100/58 (72) 102/55 (71) Pulse Ox 98 97 98 O2 Delivery Ventilator Mechanical Ventilator Ventilator Ventilator 01/23/20 01/23/20 01/23/20 01/23/20 01:13 02:00 02:15 03:00 Pulse 76 78 Resp 14 14 B/P (MAP) 87/47 (60) 98/58 (71) Pulse Ox 98 96 96 95 O2 Delivery Ventilator Ventilator Ventilator 01/23/20 01/23/20 01/23/20 01/23/20 04:00 04:00 05:00 05:03 Temp 99.0 99.0 Pulse 77 66 Resp 14 14 B/P (MAP) 99/62 (74) 104/61 (75) Pulse Ox 97 96 98 O2 Delivery Ventilator Mechanical Ventilator Ventilator Ventilator 01/23/20 01/23/20 01/23/20 01/23/20 06:00 07:00 08:00 08:07 Temp 98.5 98.5 Pulse 74 68 64 Resp 14 14 13 B/P (MAP) 86/50 (62) 86/56 (66) 97/58 (71) Pulse Ox 93 95 95 93 O2 Delivery Ventilator Ventilator Ventilator 01/23/20 09:00 Pulse 68 Resp 14 B/P (MAP) 107/69 (82) Pulse Ox 96 O2 Delivery Ventilator Intake and Output 01/22/20 01/22/20 01/23/20 15:00 23:00 07:00 Intake Total 2560 ml 2139.7 ml Output Total 1100 ml 1925 ml 1350 ml Balance -1100 ml 635 ml 789.7 ml CORNELIUS DURON MD Jan 23, 2020 09:58
[2020-01-23 10:22] LABS: BASE EXCESS ABG 5 mmol/L (-3-3); HCO3 ABG 30 mmol/L (21-28); PCO2 ABG 47 mmHg (35-46); PO2 ABG 70 mmHg (75-108); SAT O2 ABG 94 % (92-99)
[2020-01-23 10:34] LABS: FIO2 ABG 40
--- NOTE | 2020-01-23 11:12 | PDOC ---
PULMONARY PROGRESS NOTES Subjective Intubated 01/16 due to worsening hypoxia/ respiratory distress AC mode, now on 40%FIO2/ 6 PEEP RN reports no major issues last night improving oxygenation Vitals Vital Signs Date Time Temp Pulse Resp B/P (MAP) Pulse Ox O2 Delivery O2 Flow Rate FiO2 01/23/20 10:00 73 14 110/74 (86) 97 Ventilator 01/23/20 08:00 98.5 98.5 01/22/20 16:00 8.0 Comments Visual exam done Patient sedated, Intubated no respiratory distress No obvious rash, no leg edema Labs Laboratory Tests Test 01/22/20 00:49 01/22/20 08:15 01/22/20 09:40 01/23/20 05:40 Glucose (Fingerstick) 98 mg/dL (70-99) White Blood Count 6.9 x10^3/uL (4.0-11.0) 7.1 x10^3/uL (4.0-11.0) Red Blood Count 3.57 x10^6/uL (3.50-5.40) 3.47 x10^6/uL (3.50-5.40) Hemoglobin 10.2 g/dL (12.0-15.5) 10.0 g/dL (12.0-15.5) Hematocrit 30.8 % (36.0-47.0) 30.3 % (36.0-47.0) Mean Corpuscular Volume 86 fL (79-100) 87 fL (79-100) Mean Corpuscular Hemoglobin 29 pg (25-35) 29 pg (25-35) Mean Corpuscular Hemoglobin Concent 33 g/dL (31-37) 33 g/dL (31-37) Red Cell Distribution Width 14.2 % (11.5-14.5) 14.6 % (11.5-14.5) Platelet Count 416 x10^3/uL (140-400) 365 x10^3/uL (140-400) Neutrophils (%) (Auto) 72 % (31-73) 73 % (31-73) Lymphocytes (%) (Auto) 11 % (24-48) 12 % (24-48) Monocytes (%) (Auto) 14 % (0-9) 12 % (0-9) Eosinophils (%) (Auto) 3 % (0-3) 2 % (0-3) Basophils (%) (Auto) 0 % (0-3) 1 % (0-3) Neutrophils # (Auto) 4.9 x10^3/uL (1.8-7.7) 5.2 x10^3/uL (1.8-7.7) Lymphocytes # (Auto) 0.8 x10^3/uL (1.0-4.8) 0.9 x10^3/uL (1.0-4.8) Monocytes # (Auto) 0.9 x10^3/uL (0.0-1.1) 0.9 x10^3/uL (0.0-1.1) Eosinophils # (Auto) 0.2 x10^3/uL (0.0-0.7) 0.2 x10^3/uL (0.0-0.7) Basophils # (Auto) 0.0 x10^3/uL (0.0-0.2) 0.0 x10^3/uL (0.0-0.2) Sodium Level 139 mmol/L (136-145) 134 mmol/L (136-145) Potassium Level 3.3 mmol/L (3.5-5.1) 5.1 mmol/L (3.5-5.1) Chloride Level 104 mmol/L (98-107) 101 mmol/L (98-107) Carbon Dioxide Level 31 mmol/L (21-32) 28 mmol/L (21-32) Anion Gap 4 (6-14) 5 (6-14) Blood Urea Nitrogen 8 mg/dL (7-20) 8 mg/dL (7-20) Creatinine 0.6 mg/dL (0.6-1.0) 0.5 mg/dL (0.6-1.0) Estimated GFR (Cockcroft-Gault) 106.3 131.1 Glucose Level 111 mg/dL (70-99) 119 mg/dL (70-99) Calcium Level 7.9 mg/dL (8.5-10.1) 8.3 mg/dL (8.5-10.1) Phosphorus Level 3.1 mg/dL (2.6-4.7) Magnesium Level 1.9 mg/dL (1.8-2.4) O2 Saturation 99 % (92-99) Arterial Blood pH 7.43 (7.35-7.45) Arterial Blood pCO2 at Patient Temp 39 mmHg (35-46) Arterial Blood pO2 at Patient Temp 138 mmHg (75-108) Arterial Blood HCO3 26 mmol/L (21-28) Arterial Blood Base Excess 1 mmol/L (-3-3) FiO2 60 Test 01/23/20 09:45 O2 Saturation 94 % (92-99) Arterial Blood pH 7.43 (7.35-7.45) Arterial Blood pCO2 at Patient Temp 47 mmHg (35-46) Arterial Blood pO2 at Patient Temp 70 mmHg (75-108) Arterial Blood HCO3 30 mmol/L (21-28) Arterial Blood Base Excess 5 mmol/L (-3-3) FiO2 40 Laboratory Tests Test 01/23/20 05:40 01/23/20 09:45 White Blood Count 7.1 x10^3/uL (4.0-11.0) Red Blood Count 3.47 x10^6/uL (3.50-5.40) Hemoglobin 10.0 g/dL (12.0-15.5) Hematocrit 30.3 % (36.0-47.0) Mean Corpuscular Volume 87 fL (79-100) Mean Corpuscular Hemoglobin 29 pg (25-35) Mean Corpuscular Hemoglobin Concent 33 g/dL (31-37) Red Cell Distribution Width 14.6 % (11.5-14.5) Platelet Count 365 x10^3/uL (140-400) Neutrophils (%) (Auto) 73 % (31-73) Lymphocytes (%) (Auto) 12 % (24-48) Monocytes (%) (Auto) 12 % (0-9) Eosinophils (%) (Auto) 2 % (0-3) Basophils (%) (Auto) 1 % (0-3) Neutrophils # (Auto) 5.2 x10^3/uL (1.8-7.7) Lymphocytes # (Auto) 0.9 x10^3/uL (1.0-4.8) Monocytes # (Auto) 0.9 x10^3/uL (0.0-1.1) Eosinophils # (Auto) 0.2 x10^3/uL (0.0-0.7) Basophils # (Auto) 0.0 x10^3/uL (0.0-0.2) Sodium Level 134 mmol/L (136-145) Potassium Level 5.1 mmol/L (3.5-5.1) Chloride Level 101 mmol/L (98-107) Carbon Dioxide Level 28 mmol/L (21-32) Anion Gap 5 (6-14) Blood Urea Nitrogen 8 mg/dL (7-20) Creatinine 0.5 mg/dL (0.6-1.0) Estimated GFR (Cockcroft-Gault) 131.1 Glucose Level 119 mg/dL (70-99) Calcium Level 8.3 mg/dL (8.5-10.1) O2 Saturation 94 % (92-99) Arterial Blood pH 7.43 (7.35-7.45) Arterial Blood pCO2 at Patient Temp 47 mmHg (35-46) Arterial Blood pO2 at Patient Temp 70 mmHg (75-108) Arterial Blood HCO3 30 mmol/L (21-28) Arterial Blood Base Excess 5 mmol/L (-3-3) FiO2 40 Medications Active Scripts Medications Dose Route/Sig Max Daily Dose Days Date Category Flovent 110MCG Hfa (Fluticasone Propionate) 12 Gm Aer.w.adap 2 Puff IH BID 01/15/20 Reported Proair Hfa Inhaler (Albuterol Sulfate) 8.5 Gm Hfa.aer.ad 2 Puff IH PRN Q4-6HRS PRN 21 01/15/20 Reported Cetirizine Hcl 10 Mg Tablet 1 Tab PO DAILY 01/15/20 Reported Premarin (Estrogens, Conjugated) 0.45 Mg Tablet 1 Tab PO DAILY 01/15/20 Reported Comments cxr 4/3 diffuse bilateral infiltrates, L> R Impression . Acute hypoxic respiratory failure due to COVID-19 pneumonia/ ARDS Positive COVID19 Bilateral infiltrates due to COVID19 pneumonia, ? superimposed bacterial pneumonia ( Procal normal) underlying Asthma Mild transaminitis Plan . AC mode, low TV, Improving ABG. will wean PEEP and FIO2. ,keep oxygen saturations greater than 92% Follow ABG and make necessary adjustments. wean off sedation Possible CPAP trial in next 24 hr once awake Plaquenil per protocol Bronchodilators Follow CXR Zosyn azithromycin ( dc on day 5) Follow clinical course Prognosis guarded Monitor LFTs, mild improvement D/W RN ./ RT Total cct 30 min including review of cxr, labs, ABG , discussion with RN/ RT and complex medical decision making and vent management АЛЕКСАНДР SCHULTZ MD Jan 23, 2020 11:12
[2020-01-23] MEDS: ENOXAPARIN 40 MG/0.4 ML SYRINGE. SQ SCH (16:05)
[2020-01-23] MEDS ORDERED: PROPOFOL 100 ML IV ONE (16:16)
[2020-01-23] MEDS: PROPOFOL 100 ML IV PRN (16:46)
[2020-01-24] VITALS (24 sets, daily range): BP systolic 84–154; BP diastolic 49–86
[2020-01-24] MEDS: PIPERACILLIN/TAZOBACTAM 3.375 GM in IV NORMAL SALINE 50ML 50 ML IV SCH ×5 (00:09→23:20)
[2020-01-24] MEDS: IV NORMAL SALINE 1000ML BAG 1,000 ML IV SCH (00:09)
[2020-01-24] MEDS: AMINO AC 3%/ELECTROLYTE/GLYCER 1,000 ML IV SCH ×2 (03:22→15:31)
[2020-01-24] MEDS: PROPOFOL 100 ML IV PRN (06:19)
[2020-01-24 06:55] LABS: CREATININE 0.6 mg/dL (0.6-1.0); GFR 106.3; POTASSIUM 4.7 mmol/L (3.5-5.1)
--- NOTE | 2020-01-24 06:56 | RAD ---
EXAM: CHEST ONE VIEW. HISTORY: Ventilated, respiratory failure. COMPARISON: 01/21/2020. FINDINGS: A frontal view of the chest is obtained. An endotracheal tube has its tip 3.5 cm above the [place]. A nasogastric tube has its tip in the in gastric fundus. A right arm PICC line has its tip in the superior vena cava. Bilateral basilar and perihilar interstitial and airspace opacities have improved but not resolved. A small left pleural effusion is suspected. There is no pneumothorax. The heart is not enlarged. IMPRESSION: 1. Bilateral infiltrates have improved mildly. Electronically signed by: Autumn Cisneros MD (01/24/2020 6:53 AM) [facility]
[2020-01-24 07:08] LABS: HEMATOCRIT 30.6 % (36.0-47.0); HEMOGLOBIN 10.1 g/dL (12.0-15.5); RED BLOOD COUNT 3.52 x10^6/uL (3.50-5.40); RED CELL DISTRIBUTION WIDTH 14.3 % (11.5-14.5); WHITE BLOOD COUNT 7.6 x10^3/uL (4.0-11.0)
--- NOTE | 2020-01-24 08:21 | PDOC ---
PROGRESS NOTES Chief Complaint Chief Complaint 1. Patchy left mid and bibasilar opacities,C/W COVID-19 viral pneumonia. 2. ACUTE HYPOXIC RESP FAILURE 3. COVID-19 POS AG 4. HX ASTHMA 5. History of hysterectomy 6. Overweight 7. Mild transaminitis 8. Borderline diabetic Plan: considering weaning trial today as per pulmonary renewable energy consultant. will follow result of trial hopefully extubate soon monitor hemodynamics further recommendations based on clinical course reassess in the am History of Present Illness History of Present Illness Patient with no acute events reported overnight, seems to be doing better, today she will have a weaning trial as per renewable energy consultant. Vitals Vitals Vital Signs Date Time Temp Pulse Resp B/P (MAP) Pulse Ox O2 Delivery O2 Flow Rate FiO2 01/24/20 06:00 66 23 99/56 (70) 96 Ventilator 01/24/20 04:00 98.6 98.6 Physical Exam General: Other (sedated and on the vent) Heart: Regular rate, Normal S1, No murmurs Abdomen: Normal bowel sounds, Soft, No tenderness, No hepatosplenomegaly Extremities: No cyanosis, No edema, Normal pulses Skin: No rashes, No significant lesion Labs LABS Laboratory Tests Test 01/23/20 09:45 01/24/20 05:45 O2 Saturation 94 % (92-99) Arterial Blood pH 7.43 (7.35-7.45) Arterial Blood pCO2 at Patient Temp 47 mmHg (35-46) Arterial Blood pO2 at Patient Temp 70 mmHg (75-108) Arterial Blood HCO3 30 mmol/L (21-28) Arterial Blood Base Excess 5 mmol/L (-3-3) FiO2 40 White Blood Count 7.6 x10^3/uL (4.0-11.0) Red Blood Count 3.52 x10^6/uL (3.50-5.40) Hemoglobin 10.1 g/dL (12.0-15.5) Hematocrit 30.6 % (36.0-47.0) Mean Corpuscular Volume 87 fL (79-100) Mean Corpuscular Hemoglobin 29 pg (25-35) Mean Corpuscular Hemoglobin Concent 33 g/dL (31-37) Red Cell Distribution Width 14.3 % (11.5-14.5) Platelet Count 429 x10^3/uL (140-400) Sodium Level 143 mmol/L (136-145) Potassium Level 4.7 mmol/L (3.5-5.1) Chloride Level 107 mmol/L (98-107) Carbon Dioxide Level 28 mmol/L (21-32) Anion Gap 8 (6-14) Blood Urea Nitrogen 10 mg/dL (7-20) Creatinine 0.6 mg/dL (0.6-1.0) Estimated GFR (Cockcroft-Gault) 106.3 Glucose Level 99 mg/dL (70-99) Calcium Level 9.0 mg/dL (8.5-10.1) Assessment and Plan Assessmemt and Plan Problems Medical Problems: (1) COVID-19 Status: Acute (2) Dyspnea Status: Acute Comment Review of Relevant I have reviewed the following items augusto (where applicable) has been applied. Labs Laboratory Tests Test 01/22/20 08:15 01/22/20 09:40 01/23/20 05:40 01/23/20 09:45 White Blood Count 6.9 x10^3/uL (4.0-11.0) 7.1 x10^3/uL (4.0-11.0) Red Blood Count 3.57 x10^6/uL (3.50-5.40) 3.47 x10^6/uL (3.50-5.40) Hemoglobin 10.2 g/dL (12.0-15.5) 10.0 g/dL (12.0-15.5) Hematocrit 30.8 % (36.0-47.0) 30.3 % (36.0-47.0) Mean Corpuscular Volume 86 fL (79-100) 87 fL (79-100) Mean Corpuscular Hemoglobin 29 pg (25-35) 29 pg (25-35) Mean Corpuscular Hemoglobin Concent 33 g/dL (31-37) 33 g/dL (31-37) Red Cell Distribution Width 14.2 % (11.5-14.5) 14.6 % (11.5-14.5) Platelet Count 416 x10^3/uL (140-400) 365 x10^3/uL (140-400) Neutrophils (%) (Auto) 72 % (31-73) 73 % (31-73) Lymphocytes (%) (Auto) 11 % (24-48) 12 % (24-48) Monocytes (%) (Auto) 14 % (0-9) 12 % (0-9) Eosinophils (%) (Auto) 3 % (0-3) 2 % (0-3) Basophils (%) (Auto) 0 % (0-3) 1 % (0-3) Neutrophils # (Auto) 4.9 x10^3/uL (1.8-7.7) 5.2 x10^3/uL (1.8-7.7) Lymphocytes # (Auto) 0.8 x10^3/uL (1.0-4.8) 0.9 x10^3/uL (1.0-4.8) Monocytes # (Auto) 0.9 x10^3/uL (0.0-1.1) 0.9 x10^3/uL (0.0-1.1) Eosinophils # (Auto) 0.2 x10^3/uL (0.0-0.7) 0.2 x10^3/uL (0.0-0.7) Basophils # (Auto) 0.0 x10^3/uL (0.0-0.2) 0.0 x10^3/uL (0.0-0.2) Sodium Level 139 mmol/L (136-145) 134 mmol/L (136-145) Potassium Level 3.3 mmol/L (3.5-5.1) 5.1 mmol/L (3.5-5.1) Chloride Level 104 mmol/L (98-107) 101 mmol/L (98-107) Carbon Dioxide Level 31 mmol/L (21-32) 28 mmol/L (21-32) Anion Gap 4 (6-14) 5 (6-14) Blood Urea Nitrogen 8 mg/dL (7-20) 8 mg/dL (7-20) Creatinine 0.6 mg/dL (0.6-1.0) 0.5 mg/dL (0.6-1.0) Estimated GFR (Cockcroft-Gault) 106.3 131.1 Glucose Level 111 mg/dL (70-99) 119 mg/dL (70-99) Calcium Level 7.9 mg/dL (8.5-10.1) 8.3 mg/dL (8.5-10.1) Phosphorus Level 3.1 mg/dL (2.6-4.7) Magnesium Level 1.9 mg/dL (1.8-2.4) O2 Saturation 99 % (92-99) 94 % (92-99) Arterial Blood pH 7.43 (7.35-7.45) 7.43 (7.35-7.45) Arterial Blood pCO2 at Patient Temp 39 mmHg (35-46) 47 mmHg (35-46) Arterial Blood pO2 at Patient Temp 138 mmHg (75-108) 70 mmHg (75-108) Arterial Blood HCO3 26 mmol/L (21-28) 30 mmol/L (21-28) Arterial Blood Base Excess 1 mmol/L (-3-3) 5 mmol/L (-3-3) FiO2 60 40 Test 01/24/20 05:45 White Blood Count 7.6 x10^3/uL (4.0-11.0) Red Blood Count 3.52 x10^6/uL (3.50-5.40) Hemoglobin 10.1 g/dL (12.0-15.5) Hematocrit 30.6 % (36.0-47.0) Mean Corpuscular Volume 87 fL (79-100) Mean Corpuscular Hemoglobin 29 pg (25-35) Mean Corpuscular Hemoglobin Concent 33 g/dL (31-37) Red Cell Distribution Width 14.3 % (11.5-14.5) Platelet Count 429 x10^3/uL (140-400) Sodium Level 143 mmol/L (136-145) Potassium Level 4.7 mmol/L (3.5-5.1) Chloride Level 107 mmol/L (98-107) Carbon Dioxide Level 28 mmol/L (21-32) Anion Gap 8 (6-14) Blood Urea Nitrogen 10 mg/dL (7-20) Creatinine 0.6 mg/dL (0.6-1.0) Estimated GFR (Cockcroft-Gault) 106.3 Glucose Level 99 mg/dL (70-99) Calcium Level 9.0 mg/dL (8.5-10.1) Laboratory Tests Test 01/23/20 09:45 01/24/20 05:45 O2 Saturation 94 % (92-99) Arterial Blood pH 7.43 (7.35-7.45) Arterial Blood pCO2 at Patient Temp 47 mmHg (35-46) Arterial Blood pO2 at Patient Temp 70 mmHg (75-108) Arterial Blood HCO3 30 mmol/L (21-28) Arterial Blood Base Excess 5 mmol/L (-3-3) FiO2 40 White Blood Count 7.6 x10^3/uL (4.0-11.0) Red Blood Count 3.52 x10^6/uL (3.50-5.40) Hemoglobin 10.1 g/dL (12.0-15.5) Hematocrit 30.6 % (36.0-47.0) Mean Corpuscular Volume 87 fL (79-100) Mean Corpuscular Hemoglobin 29 pg (25-35) Mean Corpuscular Hemoglobin Concent 33 g/dL (31-37) Red Cell Distribution Width 14.3 % (11.5-14.5) Platelet Count 429 x10^3/uL (140-400) Sodium Level 143 mmol/L (136-145) Potassium Level 4.7 mmol/L (3.5-5.1) Chloride Level 107 mmol/L (98-107) Carbon Dioxide Level 28 mmol/L (21-32) Anion Gap 8 (6-14) Blood Urea Nitrogen 10 mg/dL (7-20) Creatinine 0.6 mg/dL (0.6-1.0) Estimated GFR (Cockcroft-Gault) 106.3 Glucose Level 99 mg/dL (70-99) Calcium Level 9.0 mg/dL (8.5-10.1) Microbiology 01/16/20 Blood Culture - Final, Complete NO GROWTH AFTER 5 DAYS Medications Current Medications Sodium Chloride (Normal Saline Flush) 3 ml QSHIFT PRN IV AFTER MEDS AND BLOOD DRAWS; Start 01/15/20 at 15:45 Sodium Chloride 1,000 ml @ 20 mls/hr Q24H IV Last administered on 01/24/20at 00:09; Start 01/15/20 at 15:40 Ondansetron HCl (Zofran) 4 mg PRN Q4HRS PRN IV NAUSEA/VOMITING Last administered on 01/17/20at 09:30; Start 01/15/20 at 15:45 Acetaminophen (Tylenol) 650 mg PRN Q4HRS PRN PO TEMP OVER 100.4F OR MILD PAIN Last administered on 01/16/20at 20:17; Start 01/15/20 at 15:45 Al Hydroxide/Mg Hydroxide (Mylanta Plus Xs) 30 ml PRN DAILY PRN PO HEARTBURN / GAS; Start 01/15/20 at 15:45 Clonidine HCl (Catapres) 0.1 mg PRN Q6HRS PRN PO SBP>160 OR DBP>90; Start 01/15/20 at 15:45 Sodium Monofluorophosphate (Fleet Adult) 133 ml PRN DAILY PRN GA CONSTIPATION; Start 01/15/20 at 15:45; Stop 01/21/20 at 09:37; Status DC Docusate Sodium (Colace) 100 mg PRN BID PRN PO CONSTIPATION; Start 01/15/20 at 15:45 Albuterol Sulfate (Ventolin Neb Soln) 2.5 mg PRN Q4HRS PRN NEB SHORTNESS OF BREATH Last administered on 01/16/20at 08:55; Start 01/15/20 at 15:45; Stop 01/16/20 at 11:22; Status DC Guaifenesin (Robitussin) 200 mg PRN Q4HRS PRN PO COUGH Last administered on 01/16/20at 06:14; Start 01/15/20 at 15:45; Stop 01/16/20 at 11:22; Status DC Lorazepam (Ativan) 0.5 mg PRN Q4HRS PRN PO ANXIETY / AGITATION Last administered on 01/17/20at 09:30; Start 01/15/20 at 15:45 Enoxaparin Sodium (Lovenox 40mg Syringe) 40 mg Q24H SQ Last administered on 01/23/20at 16:05; Start 01/15/20 at 16:00 Piperacillin Sod/ Tazobactam Sod 3.375 gm/Sodium Chloride 50 ml @ 100 mls/hr Q6HRS IV Last administered on 01/24/20at 06:20; Start 01/15/20 at 16:00 Hydroxychloroquine Sulfate (Plaquenil) 400 mg 1X ONCE PO Last administered on 01/15/20at 16:15; Start 01/15/20 at 16:15; Stop 01/15/20 at 16:16; Status DC Acetaminophen/ Hydrocodone Bitart (Lortab 5/325) 1 tab PRN Q4HRS PRN PO MODERATE PAIN 4-6 Last administered on 01/17/20 09:31; Start 01/15/20 at 23:30 Albuterol Sulfate (Ventolin Neb Soln) 2.5 mg PRN QID PRN NEB SHORTNESS OF BREATH Last administered on 01/17/20at 10:19; Start 01/16/20 at 11:30 Azithromycin 500 mg/Sodium Chloride 250 ml @ 250 mls/hr Q24H IV Last administered on 01/20/20at 12:42; Start 01/16/20 at 12:00; Stop 01/20/20 at 14:46; Status DC Throat Lozenges (Cepacol Sore Throat Lozenge) 1 salima PRN Q2HRS PRN PO SORE THROAT Last administered on 01/16/20at 20:17; Start 01/16/20 at 11:30 Guaifenesin/ Codeine Phosphate (Robitussin Ac) 5 ml PRN Q6HRS PRN PO COUGH Last administered on 01/16/20at 19:06; Start 01/16/20 at 11:30; Stop 01/17/20 at 09:14; Status DC Hydroxychloroquine Sulfate (Plaquenil) 200 mg BID PO Last administered on 01/19/20at 20:49; Start 01/16/20 at 12:00; Stop 01/19/20 at 21:01; Status DC Sodium Chloride 1,000 ml @ 1,440 mls/hr Q42M IV ; Start 01/16/20 at 15:00; Stop 01/16/20 at 16:00; Status DC Sodium Chloride 500 ml @ 1,000 mls/hr PRN Q30MIN PRN IV SEE COMMENTS; Start 01/16/20 at 15:00 Lactobacillus Rhamnosus (Culturelle) 1 cap BID PO Last administered on 01/23/20at 20:25; Start 01/16/20 at 21:00 Guaifenesin/ Codeine Phosphate (Robitussin Ac) 5 ml PRN Q4HRS PRN PO COUGH Last administered on 01/17/20at 09:31; Start 01/17/20 at 09:15 Fentanyl Citrate 30 ml @ 0 mls/hr CONT PRN IV SEE PROTOCOL Last administered on 01/23/20at 08:07; Start 01/17/20 at 20:15 Fentanyl Citrate (Fentanyl 2ml Vial) 25 mcg PRN Q1HR PRN IV SEE COMMENTS; Start 01/17/20 at 20:15 Fentanyl Citrate (Fentanyl 2ml Vial) 50 mcg PRN Q1HR PRN IV SEE COMMENTS; Start 01/17/20 at 20:15 Midazolam HCl 100 ml @ 0 mls/hr CONT PRN IV SEE PROTOCOL Last administered on 01/23/20at 05:51; Start 01/17/20 at 20:15 Succinylcholine Chloride (Anectine) 200 mg STK-MED ONCE .ROUTE ; Start 01/17/20 at 20:12; Stop 01/17/20 at 20:12; Status DC Vecuronium [place] (Norcuron Bolus) 10 mg STK-MED ONCE IV ; Start 01/17/20 at 20:12; Stop 01/17/20 at 20:12; Status DC Etomidate (Amidate) 20 mg STK-MED ONCE IV ; Start 01/17/20 at 20:33; Stop 01/17/20 at 20:33; Status DC Famotidine (Pepcid Vial) 20 mg BID IVP Last administered on 01/23/20at 20:25; Start 01/18/20 at 21:00 Multivitamins/ Minerals Therapeutic (Centrum Multivit-Mineral Liq) 5 ml DAILY PEG Last administered on 01/23/20at 07:58; Start 01/19/20 at 09:00 Ascorbic Acid (Vitamin C) 500 mg DAILY PO Last administered on 01/23/20at 08:02; Start 01/18/20 at 15:00 Zinc Sulfate (Orazinc) 220 mg DAILY PO Last administered on 01/23/20at 07:58; Start 01/18/20 at 15:00 Amino Acids/ Glycerin/ Electrolytes 1,000 ml @ 80 mls/hr [id number] IV Last admi nistered on 01/24/20at 03:22; Start 01/19/20 at 13:45 Potassium Chloride/Water 100 ml @ 100 mls/hr Q1H IV Last administered on 01/19/20at 22:10; Start 01/19/20 at 19:00; Stop 01/19/20 at 20:59; Status DC Alteplase, Recombinant (Cathflo For Central Catheter Clearance) 1 mg 1X ONCE INT CAT Last administered on 01/21/20at 10:00; Start 01/21/20 at 10:00; Stop 01/21/20 at 10:01; Status DC Norepinephrine Bitartrate 8 mg/ Dextrose 258 ml @ 18.189 mls/ hr CONT PRN IV PER PROTOCOL Last administered on 01/21/20at 14:10; Start 01/21/20 at 10:45 Alteplase, Recombinant (Cathflo For Central Catheter Clearance) 3 mg 1X ONCE INT CAT Last administered on 01/22/20at 05:28; Start 01/22/20 at 05:15; Stop 01/22/20 at 05:16; Status DC Potassium Chloride (Klor-Con) 40 meq 1X ONCE PO Last administered on 01/22/20at 15:26; Start 01/22/20 at 14:30; Stop 01/22/20 at 14:31; Status DC Ondansetron HCl (Zofran) 4 mg PRN Q6HRS PRN IVP NAUSEA/VOMITING; Start 01/23/20 at 08:30 Propofol 100 ml @ As Directed STK-MED ONCE IV ; Start 01/23/20 at 16:16; Stop 01/23/20 at 16:17; Status DC Propofol 100 ml @ 1.485 mls/ hr CONT PRN IV SEE I/O RECORD Last administered on 01/24/20at 06:19; Start 01/23/20 at 16:30 Active Scripts Active Reported Flovent 110MCG Hfa (Fluticasone Propionate) 12 Gm Aer.w.adap 2 Puff IH BID Proair Hfa Inhaler (Albuterol Sulfate) 8.5 Gm Hfa.aer.ad 2 Puff IH PRN Q4-6HRS PRN 21 Days Cetirizine Hcl 10 Mg Tablet 1 Tab PO DAILY Premarin (Estrogens, Conjugated) 0.45 Mg Tablet 1 Tab PO DAILY Vitals/I & O Vital Sign - Last 24 Hours 01/23/20 01/23/20 01/23/20 01/23/20 08:37 09:00 09:15 10:00 Pulse 68 73 Resp 14 14 B/P (MAP) 107/69 (82) 110/74 (86) Pulse Ox 96 96 97 97 O2 Delivery Ventilator Ventilator Ventilator Ventilator 01/23/20 01/23/20 01/23/20 01/23/20 11:00 12:00 12:00 12:30 Temp 98.4 98.4 Pulse 88 76 Resp 14 14 B/P (MAP) 121/80 (94) 98/67 (77) Pulse Ox 94 93 95 O2 Delivery Ventilator Mechanical Ventilator Ventilator Ventilator 01/23/20 01/23/20 01/23/20 01/23/20 13:00 14:00 15:00 16:00 Temp 98.6 98.6 Pulse 76 76 90 78 Resp 14 14 14 14 B/P (MAP) 101/57 (72) 98/61 (73) 117/63 (81) 105/64 (78) Pulse Ox 95 95 95 96 O2 Delivery Ventilator Ventilator Ventilator Ventilator 01/23/20 01/23/20 01/23/20 01/23/20 16:00 16:30 17:00 18:00 Pulse 74 77 Resp 14 14 B/P (MAP) 90/58 (69) 107/64 (78) Pulse Ox 95 95 95 O2 Delivery Mechanical Ventilator Ventilator Ventilator Ventilator 01/23/20 01/23/20 01/23/20 01/23/20 19:00 20:00 20:00 20:00 Temp 98.7 98.7 Pulse 87 88 Resp 20 20 B/P (MAP) 100/52 (68) 106/63 (77) Pulse Ox 95 96 O2 Delivery Ventilator Ventilator Mechanical Ventilator 01/23/20 01/23/20 01/23/20 01/23/20 20:19 21:00 22:00 23:00 Pulse 84 76 74 Resp 20 20 20 B/P (MAP) 124/85 (98) 102/69 (80) 109/71 (84) Pulse Ox 96 96 94 95 O2 Delivery Ventilator Ventilator Ventilator Ventilator 01/23/20 01/24/20 01/24/20 01/24/20 23:33 00:00 00:00 00:00 Temp 99.0 99.0 Pulse 92 Resp 20 B/P (MAP) 111/77 (88) Pulse Ox 93 96 O2 Delivery Ventilator Ventilator Mechanical Ventilator 01/24/20 01/24/20 01/24/20 01/24/20 01:00 02:00 03:00 04:00 Pulse 94 76 96 Resp 20 20 20 B/P (MAP) 121/76 (91) 103/71 (82) 84/49 (61) Pulse Ox 94 94 94 O2 Delivery Ventilator Ventilator Ventilator Mechanical Ventilator 01/24/20 01/24/20 01/24/20 01/24/20 04:00 04:10 05:00 06:00 Temp 98.6 98.6 Pulse 71 69 66 Resp 22 16 23 B/P (MAP) 105/64 (78) 98/65 (76) 99/56 (70) Pulse Ox 95 97 95 96 O2 Delivery Ventilator Ventilator Ventilator Ventilator Intake and Output 01/23/20 01/23/20 01/24/20 15:00 23:00 07:00 Intake Total 150 ml 1388.2 ml 1485 ml Output Total 2100 ml 1950 ml 2650 ml Balance -1950 ml -561.8 ml -1165 ml CORNELIUS DURON MD Jan 24, 2020 08:21
[2020-01-24 08:39] LABS: BASE EXCESS ABG 1 mmol/L (-3-3); HCO3 ABG 25 mmol/L (21-28); PCO2 ABG 35 mmHg (35-46); PO2 ABG 71 mmHg (75-108); SAT O2 ABG 95 % (92-99)
[2020-01-24] MEDS: LACTOBACILLUS RHAMNOSUS GG 1 CAPSULE. PO SCH ×2 (09:00→19:55)
[2020-01-24] MEDS: ASCORBIC ACID 500 MG TABLET PO SCH (09:00)
[2020-01-24] MEDS: MULTIVITAMINS,THERAPEUTIC 5 ML ORAL LIQUID. PEG SCH (09:00)
[2020-01-24] MEDS: ZINC SULFATE 220 MG CAPSULE. PO SCH (09:00)
[2020-01-24] MEDS: FAMOTIDINE 20 MG/2 ML VIAL IVP SCH ×2 (09:00→19:56)
--- NOTE | 2020-01-24 09:16 | PDOC ---
PULMONARY PROGRESS NOTES Subjective Intubated 01/16 due to worsening hypoxia/ respiratory distress AC mode, now on 40%FIO2/ 6 PEEP RN reports no major issues last night, sedation off this am, following commands Vitals Vital Signs Date Time Temp Pulse Resp B/P (MAP) Pulse Ox O2 Delivery O2 Flow Rate FiO2 01/24/20 08:00 Mechanical Ventilator 01/24/20 08:00 99.0 78 22 129/75 (93) 97 99.0 Comments Visual exam done Patient sedated, Intubated no respiratory distress No obvious rash, no leg edema Labs Laboratory Tests Test 01/22/20 09:40 01/23/20 05:40 01/23/20 09:45 01/24/20 05:45 O2 Saturation 99 % (92-99) 94 % (92-99) Arterial Blood pH 7.43 (7.35-7.45) 7.43 (7.35-7.45) Arterial Blood pCO2 at Patient Temp 39 mmHg (35-46) 47 mmHg (35-46) Arterial Blood pO2 at Patient Temp 138 mmHg (75-108) 70 mmHg (75-108) Arterial Blood HCO3 26 mmol/L (21-28) 30 mmol/L (21-28) Arterial Blood Base Excess 1 mmol/L (-3-3) 5 mmol/L (-3-3) FiO2 60 40 White Blood Count 7.1 x10^3/uL (4.0-11.0) 7.6 x10^3/uL (4.0-11.0) Red Blood Count 3.47 x10^6/uL (3.50-5.40) 3.52 x10^6/uL (3.50-5.40) Hemoglobin 10.0 g/dL (12.0-15.5) 10.1 g/dL (12.0-15.5) Hematocrit 30.3 % (36.0-47.0) 30.6 % (36.0-47.0) Mean Corpuscular Volume 87 fL (79-100) 87 fL (79-100) Mean Corpuscular Hemoglobin 29 pg (25-35) 29 pg (25-35) Mean Corpuscular Hemoglobin Concent 33 g/dL (31-37) 33 g/dL (31-37) Red Cell Distribution Width 14.6 % (11.5-14.5) 14.3 % (11.5-14.5) Platelet Count 365 x10^3/uL (140-400) 429 x10^3/uL (140-400) Neutrophils (%) (Auto) 73 % (31-73) Lymphocytes (%) (Auto) 12 % (24-48) Monocytes (%) (Auto) 12 % (0-9) Eosinophils (%) (Auto) 2 % (0-3) Basophils (%) (Auto) 1 % (0-3) Neutrophils # (Auto) 5.2 x10^3/uL (1.8-7.7) Lymphocytes # (Auto) 0.9 x10^3/uL (1.0-4.8) Monocytes # (Auto) 0.9 x10^3/uL (0.0-1.1) Eosinophils # (Auto) 0.2 x10^3/uL (0.0-0.7) Basophils # (Auto) 0.0 x10^3/uL (0.0-0.2) Sodium Level 134 mmol/L (136-145) 143 mmol/L (136-145) Potassium Level 5.1 mmol/L (3.5-5.1) 4.7 mmol/L (3.5-5.1) Chloride Level 101 mmol/L (98-107) 107 mmol/L (98-107) Carbon Dioxide Level 28 mmol/L (21-32) 28 mmol/L (21-32) Anion Gap 5 (6-14) 8 (6-14) Blood Urea Nitrogen 8 mg/dL (7-20) 10 mg/dL (7-20) Creatinine 0.5 mg/dL (0.6-1.0) 0.6 mg/dL (0.6-1.0) Estimated GFR (Cockcroft-Gault) 131.1 106.3 Glucose Level 119 mg/dL (70-99) 99 mg/dL (70-99) Calcium Level 8.3 mg/dL (8.5-10.1) 9.0 mg/dL (8.5-10.1) Laboratory Tests Test 01/23/20 09:45 01/24/20 05:45 O2 Saturation 94 % (92-99) Arterial Blood pH 7.43 (7.35-7.45) Arterial Blood pCO2 at Patient Temp 47 mmHg (35-46) Arterial Blood pO2 at Patient Temp 70 mmHg (75-108) Arterial Blood HCO3 30 mmol/L (21-28) Arterial Blood Base Excess 5 mmol/L (-3-3) FiO2 40 White Blood Count 7.6 x10^3/uL (4.0-11.0) Red Blood Count 3.52 x10^6/uL (3.50-5.40) Hemoglobin 10.1 g/dL (12.0-15.5) Hematocrit 30.6 % (36.0-47.0) Mean Corpuscular Volume 87 fL (79-100) Mean Corpuscular Hemoglobin 29 pg (25-35) Mean Corpuscular Hemoglobin Concent 33 g/dL (31-37) Red Cell Distribution Width 14.3 % (11.5-14.5) Platelet Count 429 x10^3/uL (140-400) Sodium Level 143 mmol/L (136-145) Potassium Level 4.7 mmol/L (3.5-5.1) Chloride Level 107 mmol/L (98-107) Carbon Dioxide Level 28 mmol/L (21-32) Anion Gap 8 (6-14) Blood Urea Nitrogen 10 mg/dL (7-20) Creatinine 0.6 mg/dL (0.6-1.0) Estimated GFR (Cockcroft-Gault) 106.3 Glucose Level 99 mg/dL (70-99) Calcium Level 9.0 mg/dL (8.5-10.1) Medications Active Scripts Medications Dose Route/Sig Max Daily Dose Days Date Category Flovent 110MCG Hfa (Fluticasone Propionate) 12 Gm Aer.w.adap 2 Puff IH BID 01/15/20 Reported Proair Hfa Inhaler (Albuterol Sulfate) 8.5 Gm Hfa.aer.ad 2 Puff IH PRN Q4-6HRS PRN 21 01/15/20 Reported Cetirizine Hcl 10 Mg Tablet 1 Tab PO DAILY 01/15/20 Reported Premarin (Estrogens, Conjugated) 0.45 Mg Tablet 1 Tab PO DAILY 01/15/20 Reported Comments CXR 01/24/2020 IMPRESSION: 1. Bilateral infiltrates have improved mildly. Impression . Acute hypoxic respiratory failure due to COVID-19 pneumonia/ ARDS- improving Positive COVID19 Bilateral infiltrates due to COVID19 pneumonia, ? superimposed bacterial pneumonia ( Procal normal) underlying Asthma Mild transaminitis Plan . AC mode FI02 40%, PEEP 6 Follow ABG and make necessary adjustments. off sedation CPAP trial Completed Plaquenil Course Bronchodilators Follow CXR, reviewed today Bilateral infiltrates have improved mildly. Zosyn, azithromycin ( dc on day 5) Follow clinical course Monitor LFTs, mild improvement D/W RN ./ RT Total cct 30 min including review of cxr, labs, ABG , discussion with RN/ RT and complex medical decision making and vent management АЛЕКСАНДР SCHULTZ MD Jan 24, 2020 09:16
[2020-01-24 09:41] LABS: FIO2 ABG 40
[2020-01-24] MEDS ORDERED: IV NORMAL SALINE 500ML BAG 500 ML IV PRN (11:45)
[2020-01-24] MEDS ORDERED: ATROPINE 0.5 MG/5 ML DISP.SYRINGE. IV PRN (11:45)
[2020-01-24] MEDS: DEXMEDETOMIDINE 400 MCG in IV NORMAL SALINE 100ML 96 ML IV PRN ×2 (12:00→21:32)
[2020-01-24] MEDS ORDERED: SUCCINYLCHOLINE 200 MG/10 ML VIAL. ONE (13:00)
[2020-01-24] MEDS ORDERED: ETOMIDATE 20 MG/10 ML VIAL. IV ONE (13:00)
[2020-01-24] MEDS: TPN PER PHARMACY MC PRN (15:16)
[2020-01-24] MEDS: ENOXAPARIN 40 MG/0.4 ML SYRINGE. SQ SCH (15:31)
[2020-01-24] MEDS ORDERED: fentaNYL HIGH DOSE PCA 55 ML IV PRN (17:00)
[2020-01-24] MEDS ORDERED: DEXTROSE 70% IV SCH ×9 (22:00)
[2020-01-24] MEDS ORDERED: [UNRECOGNIZED DRUG - OTHER] IV SCH ×9 (22:00)
[2020-01-24] MEDS ORDERED: TOTAL PARENTERAL NUTRITION IV SCH ×9 (22:00)
[2020-01-24] MEDS ORDERED: AMINO ACID IV SCH ×9 (22:00)
[2020-01-25] VITALS (24 sets, daily range): BP systolic 95–124; BP diastolic 61–80
[2020-01-25] MEDS: IV NORMAL SALINE 1000ML BAG 1,000 ML IV SCH ×2 (02:05→19:04)
[2020-01-25] MEDS: PIPERACILLIN/TAZOBACTAM 3.375 GM in IV NORMAL SALINE 50ML 50 ML IV SCH ×4 (05:38→23:48)
[2020-01-25] MEDS: DEXMEDETOMIDINE 400 MCG in IV NORMAL SALINE 100ML 96 ML IV PRN (06:24)
[2020-01-25 06:37] LABS: CALCIUM 8.9 mg/dL (8.5-10.1); CREATININE 0.6 mg/dL (0.6-1.0); GFR 106.3; MAGNESIUM 2.1 mg/dL (1.8-2.4); POTASSIUM 4.3 mmol/L (3.5-5.1)
[2020-01-25] MEDS: ASCORBIC ACID 500 MG TABLET PO SCH (08:59)
[2020-01-25] MEDS: FAMOTIDINE 20 MG/2 ML VIAL IVP SCH ×2 (08:59→21:23)
[2020-01-25] MEDS: ZINC SULFATE 220 MG CAPSULE. PO SCH (09:00)
[2020-01-25] MEDS: LACTOBACILLUS RHAMNOSUS GG 1 CAPSULE. PO SCH ×2 (09:00→21:00)
[2020-01-25] MEDS: MULTIVITAMINS,THERAPEUTIC 5 ML ORAL LIQUID. PEG SCH (09:00)
[2020-01-25 10:10] LABS: BASE EXCESS ABG -1 mmol/L (-3-3); HCO3 ABG 23 mmol/L (21-28); PCO2 ABG 33 mmHg (35-46); PO2 ABG 70 mmHg (75-108); SAT O2 ABG 94 % (92-99)
[2020-01-25 10:55] LABS: FIO2 ABG 40
[2020-01-25] MEDS: TPN PER PHARMACY MC PRN (12:31)
[2020-01-25 13:20] LABS: BASE EXCESS ABG -1 mmol/L (-3-3); HCO3 ABG 24 mmol/L (21-28); PCO2 ABG 36 mmHg (35-46); PO2 ABG 111 mmHg (75-108); SAT O2 ABG 98 % (92-99)
[2020-01-25 13:25] LABS: FIO2 ABG 40
--- NOTE | 2020-01-25 13:57 | PDOC ---
PROGRESS NOTES Chief Complaint Chief Complaint 1. Patchy left mid and bibasilar opacities,C/W COVID-19 viral pneumonia. 2. ACUTE HYPOXIC RESP FAILURE 3. COVID-19 POS AG 4. HX ASTHMA 5. History of hysterectomy 6. Overweight 7. Mild transaminitis 8. Borderline diabetic Plan: considering weaning trial today as per pulmonary real estate consultant. will follow result of trial hopefully extubate soon monitor hemodynamics further recommendations based on clinical course reassess in the am History of Present Illness History of Present Illness Patient with no acute events reported overnight, seems to be doing better, currently on pressure support ventilation, will try to do a weaning trial Vitals Vitals Vital Signs Date Time Temp Pulse Resp B/P (MAP) Pulse Ox O2 Delivery O2 Flow Rate FiO2 01/25/20 13:18 Ventilator 01/25/20 13:00 65 25 118/62 (80) 100 01/25/20 12:00 98.6 98.6 Physical Exam General: Other (sedated and on the vent) Heart: Regular rate, Normal S1, No murmurs Abdomen: Normal bowel sounds, Soft, No tenderness, No hepatosplenomegaly Extremities: No cyanosis, No edema, Normal pulses Skin: No rashes, No significant lesion Labs LABS Laboratory Tests Test 01/25/20 06:10 01/25/20 08:00 01/25/20 11:26 01/25/20 13:15 Sodium Level 138 mmol/L (136-145) Potassium Level 4.3 mmol/L (3.5-5.1) Chloride Level 104 mmol/L (98-107) Carbon Dioxide Level 27 mmol/L (21-32) Anion Gap 7 (6-14) Blood Urea Nitrogen 12 mg/dL (7-20) Creatinine 0.6 mg/dL (0.6-1.0) Estimated GFR (Cockcroft-Gault) 106.3 Glucose Level 157 mg/dL (70-99) Calcium Level 8.9 mg/dL (8.5-10.1) Phosphorus Level 4.0 mg/dL (2.6-4.7) Magnesium Level 2.1 mg/dL (1.8-2.4) Triglycerides Level 157 mg/dL (0-150) O2 Saturation 94 % (92-99) 98 % (92-99) Arterial Blood pH 7.45 (7.35-7.45) 7.43 (7.35-7.45) Arterial Blood pCO2 at Patient Temp 33 mmHg (35-46) 36 mmHg (35-46) Arterial Blood pO2 at Patient Temp 70 mmHg (75-108) 111 mmHg (75-108) Arterial Blood HCO3 23 mmol/L (21-28) 24 mmol/L (21-28) Arterial Blood Base Excess -1 mmol/L (-3-3) -1 mmol/L (-3-3) FiO2 40 40 Glucose (Fingerstick) 153 mg/dL (70-99) Assessment and Plan Assessmemt and Plan Problems Medical Problems: (1) COVID-19 Status: Acute (2) Dyspnea Status: Acute Comment Review of Relevant I have reviewed the following items augusto (where applicable) has been applied. Labs Laboratory Tests Test 01/24/20 05:45 01/24/20 08:30 01/25/20 06:10 01/25/20 08:00 White Blood Count 7.6 x10^3/uL (4.0-11.0) Red Blood Count 3.52 x10^6/uL (3.50-5.40) Hemoglobin 10.1 g/dL (12.0-15.5) Hematocrit 30.6 % (36.0-47.0) Mean Corpuscular Volume 87 fL (79-100) Mean Corpuscular Hemoglobin 29 pg (25-35) Mean Corpuscular Hemoglobin Concent 33 g/dL (31-37) Red Cell Distribution Width 14.3 % (11.5-14.5) Platelet Count 429 x10^3/uL (140-400) Sodium Level 143 mmol/L (136-145) 138 mmol/L (136-145) Potassium Level 4.7 mmol/L (3.5-5.1) 4.3 mmol/L (3.5-5.1) Chloride Level 107 mmol/L (98-107) 104 mmol/L (98-107) Carbon Dioxide Level 28 mmol/L (21-32) 27 mmol/L (21-32) Anion Gap 8 (6-14) 7 (6-14) Blood Urea Nitrogen 10 mg/dL (7-20) 12 mg/dL (7-20) Creatinine 0.6 mg/dL (0.6-1.0) 0.6 mg/dL (0.6-1.0) Estimated GFR (Cockcroft-Gault) 106.3 106.3 Glucose Level 99 mg/dL (70-99) 157 mg/dL (70-99) Calcium Level 9.0 mg/dL (8.5-10.1) 8.9 mg/dL (8.5-10.1) O2 Saturation 95 % (92-99) 94 % (92-99) Arterial Blood pH 7.47 (7.35-7.45) 7.45 (7.35-7.45) Arterial Blood pCO2 at Patient Temp 35 mmHg (35-46) 33 mmHg (35-46) Arterial Blood pO2 at Patient Temp 71 mmHg (75-108) 70 mmHg (75-108) Arterial Blood HCO3 25 mmol/L (21-28) 23 mmol/L (21-28) Arterial Blood Base Excess 1 mmol/L (-3-3) -1 mmol/L (-3-3) FiO2 40 40 Phosphorus Level 4.0 mg/dL (2.6-4.7) Magnesium Level 2.1 mg/dL (1.8-2.4) Triglycerides Level 157 mg/dL (0-150) Test 01/25/20 11:26 01/25/20 13:15 Glucose (Fingerstick) 153 mg/dL (70-99) O2 Saturation 98 % (92-99) Arterial Blood pH 7.43 (7.35-7.45) Arterial Blood pCO2 at Patient Temp 36 mmHg (35-46) Arterial Blood pO2 at Patient Temp 111 mmHg (75-108) Arterial Blood HCO3 24 mmol/L (21-28) Arterial Blood Base Excess -1 mmol/L (-3-3) FiO2 40 Laboratory Tests Test 01/25/20 06:10 01/25/20 08:00 01/25/20 11:26 01/25/20 13:15 Sodium Level 138 mmol/L (136-145) Potassium Level 4.3 mmol/L (3.5-5.1) Chloride Level 104 mmol/L (98-107) Carbon Dioxide Level 27 mmol/L (21-32) Anion Gap 7 (6-14) Blood Urea Nitrogen 12 mg/dL (7-20) Creatinine 0.6 mg/dL (0.6-1.0) Estimated GFR (Cockcroft-Gault) 106.3 Glucose Level 157 mg/dL (70-99) Calcium Level 8.9 mg/dL (8.5-10.1) Phosphorus Level 4.0 mg/dL (2.6-4.7) Magnesium Level 2.1 mg/dL (1.8-2.4) Triglycerides Level 157 mg/dL (0-150) O2 Saturation 94 % (92-99) 98 % (92-99) Arterial Blood pH 7.45 (7.35-7.45) 7.43 (7.35-7.45) Arterial Blood pCO2 at Patient Temp 33 mmHg (35-46) 36 mmHg (35-46) Arterial Blood pO2 at Patient Temp 70 mmHg (75-108) 111 mmHg (75-108) Arterial Blood HCO3 23 mmol/L (21-28) 24 mmol/L (21-28) Arterial Blood Base Excess -1 mmol/L (-3-3) -1 mmol/L (-3-3) FiO2 40 40 Glucose (Fingerstick) 153 mg/dL (70-99) Microbiology 01/16/20 Blood Culture - Final, Complete NO GROWTH AFTER 5 DAYS Medications Current Medications Sodium Chloride (Normal Saline Flush) 3 ml QSHIFT PRN IV AFTER MEDS AND BLOOD DRAWS; Start 01/15/20 at 15:45 Sodium Chloride 1,000 ml @ 20 mls/hr Q24H IV Last administered on 01/25/20at 02:05; Start 01/15/20 at 15:40 Ondansetron HCl (Zofran) 4 mg PRN Q4HRS PRN IV NAUSEA/VOMITING Last administered on 01/17/20at 09:30; Start 01/15/20 at 15:45 Acetaminophen (Tylenol) 650 mg PRN Q4HRS PRN PO TEMP OVER 100.4F OR MILD PAIN Last administered on 01/16/20at 20:17; Start 01/15/20 at 15:45 Al Hydroxide/Mg Hydroxide (Mylanta Plus Xs) 30 ml PRN DAILY PRN PO HEARTBURN / GAS; Start 01/15/20 at 15:45 Clonidine HCl (Catapres) 0.1 mg PRN Q6HRS PRN PO SBP>160 OR DBP>90; Start 01/15/20 at 15:45 Sodium Monofluorophosphate (Fleet Adult) 133 ml PRN DAILY PRN NC CONSTIPATION; Start 01/15/20 at 15:45; Stop 01/21/20 at 09:37; Status DC Docusate Sodium (Colace) 100 mg PRN BID PRN PO CONSTIPATION; Start 01/15/20 at 15:45 Albuterol Sulfate (Ventolin Neb Soln) 2.5 mg PRN Q4HRS PRN NEB SHORTNESS OF BREATH Last administered on 01/16/20at 08:55; Start 01/15/20 at 15:45; Stop 01/16/20 at 11:22; Status DC Guaifenesin (Robitussin) 200 mg PRN Q4HRS PRN PO COUGH Last administered on 01/16/20at 06:14; Start 01/15/20 at 15:45; Stop 01/16/20 at 11:22; Status DC Lorazepam (Ativan) 0.5 mg PRN Q4HRS PRN PO ANXIETY / AGITATION Last administered on 01/17/20at 09:30; Start 01/15/20 at 15:45 Enoxaparin Sodium (Lovenox 40mg Syringe) 40 mg Q24H SQ Last administered on 01/24/20at 15:31; Start 01/15/20 at 16:00 Piperacillin Sod/ Tazobactam Sod 3.375 gm/Sodium Chloride 50 ml @ 100 mls/hr Q6HRS IV Last administered on 01/25/20at 11:43; Start 01/15/20 at 16:00 Hydroxychloroquine Sulfate (Plaquenil) 400 mg 1X ONCE PO Last administered on 01/15/20at 16:15; Start 01/15/20 at 16:15; Stop 01/15/20 at 16:16; Status DC Acetaminophen/ Hydrocodone Bitart (Lortab 5/325) 1 tab PRN Q4HRS PRN PO MODERATE PAIN 4-6 Last administered on 01/17/20at 09:31; Start 01/15/20 at 23:30 Albuterol Sulfate (Ventolin Neb Soln) 2.5 mg PRN QID PRN NEB SHORTNESS OF BREATH Last administered on 01/17/20at 10:19; Start 01/16/20 at 11:30 Azithromycin 500 mg/Sodium Chloride 250 ml @ 250 mls/hr Q24H IV Last admin istered on 01/20/20at 12:42; Start 01/16/20 at 12:00; Stop 01/20/20 at 14:46; Status DC Throat Lozenges (Cepacol Sore Throat Lozenge) 1 salima PRN Q2HRS PRN PO SORE THROAT Last administered on 01/16/20at 20:17; Start 01/16/20 at 11:30 Guaifenesin/ Codeine Phosphate (Robitussin Ac) 5 ml PRN Q6HRS PRN PO COUGH Last administered on 01/16/20at 19:06; Start 01/16/20 at 11:30; Stop 01/17/20 at 09:14; Status DC Hydroxychloroquine Sulfate (Plaquenil) 200 mg BID PO Last administered on 01/19/20at 20:49; Start 01/16/20 at 12:00; Stop 01/19/20 at 21:01; Status DC Sodium Chloride 1,000 ml @ 1,440 mls/hr Q42M IV ; Start 01/16/20 at 15:00; Stop 01/16/20 at 16:00; Status DC Sodium Chloride 500 ml @ 1,000 mls/hr PRN Q30MIN PRN IV SEE COMMENTS; Start 01/16/20 at 15:00 Lactobacillus Rhamnosus (Culturelle) 1 cap BID PO Last administered on 01/25/20at 09:00; Start 01/16/20 at 21:00 Guaifenesin/ Codeine Phosphate (Robitussin Ac) 5 ml PRN Q4HRS PRN PO COUGH Last administered on 01/17/20at 09:31; Start 01/17/20 at 09:15 Fentanyl Citrate 30 ml @ 0 mls/hr CONT PRN IV SEE PROTOCOL Last administered on 01/23/20at 08:07; Start 01/17/20 at 20:15; Stop 01/24/20 at 16:59; Status DC Fentanyl Citrate (Fentanyl 2ml Vial) 25 mcg PRN Q1HR PRN IV SEE COMMENTS; Start 01/17/20 at 20:15 Fentanyl Citrate (Fentanyl 2ml Vial) 50 mcg PRN Q1HR PRN IV SEE COMMENTS; Start 01/17/20 at 20:15 Midazolam HCl 100 ml @ 0 mls/hr CONT PRN IV SEE PROTOCOL Last administered on 01/23/20at 05:51; Start 01/17/20 at 20:15 Succinylcholine Chloride (Anectine) 200 mg STK-MED ONCE .ROUTE ; Start 01/17/20 at 20:12; Stop 01/17/20 at 20:12; Status DC Vecuronium Abrams (Norcuron Bolus) 10 mg STK-MED ONCE IV ; Start 01/17/20 at 20:12; Stop 01/17/20 at 20:12; Status DC Etomidate (Amidate) 20 mg STK-MED ONCE IV ; Start 01/17/20 at 20:33; Stop 01/17/20 at 20:33; Status DC Famotidine (Pepcid Vial) 20 mg BID IVP Last administered on 01/25/20at 08:59; Start 01/18/20 at 21:00 Multivitamins/ Minerals Therapeutic (Centrum Multivit-Mineral Liq) 5 ml DAILY PEG Last administered on 01/25/20at 09:00; Start 01/19/20 at 09:00 Ascorbic Acid (Vitamin C) 500 mg DAILY PO Last administered on 01/25/20at 08:59; Start 01/18/20 at 15:00 Zinc Sulfate (Orazinc) 220 mg DAILY PO Last administered on 01/25/20at 09:00; Start 01/18/20 at 15:00 Amino Acids/ Glycerin/ Electrolytes 1,000 ml @ 80 mls/hr [id number] IV Last administered on 01/24/20at 15:31; Start 01/19/20 at 13:45; Stop 01/24/20 at 21:59; Status DC Potassium Chloride/Water 100 ml @ 100 mls/hr Q1H IV Last administered on 01/19/20at 22:10; Start 01/19/20 at 19:00; Stop 01/19/20 at 20:59; Status DC Alteplase, Recombinant (Cathflo For Central Catheter Clearance) 1 mg 1X ONCE INT CAT Last administered on 01/21/20at 10:00; Start 01/21/20 at 10:00; Stop 01/21/20 at 10:01; Status DC Norepinephrine Bitartrate 8 mg/ Dextrose 258 ml @ 18.189 mls/ hr CONT PRN IV PER PROTOCOL Last administered on 01/21/20at 14:10; Start 01/21/20 at 10:45 Alteplase, Recombinant (Cathflo For Central Catheter Clearance) 3 mg 1X ONCE INT CAT Last administered on 01/22/20at 05:28; Start 01/22/20 at 05:15; Stop 01/22/20 at 05:16; Status DC Potassium Chloride (Klor-Con) 40 meq 1X ONCE PO Last administered on 01/22/20at 15:26; Start 01/22/20 at 14:30; Stop 01/22/20 at 14:31; Status DC Ondansetron HCl (Zofran) 4 mg PRN Q6HRS PRN IVP NAUSEA/VOMITING; Start 01/23/20 at 08:30; Stop 01/25/20 at 07:46; Status DC Propofol 100 ml @ As Directed STK-MED ONCE IV ; Start 01/23/20 at 16:16; Stop 01/23/20 at 16:17; Status DC Propofol 100 ml @ 1.485 mls/ hr CONT PRN IV SEE I/O RECORD Last administered on 01/24/20at 06:19; Start 01/23/20 at 16:30 Dexmedetomidine HCl 400 mcg/ Sodium Chloride 100 ml @ 0 mls/hr CONT PRN IV SEDATION Last administered on 01/25/20at 06:24; Start 01/24/20 at 11:45 Sodium Chloride 500 ml @ 500 mls/hr 1X PRN PRN IV SEDATION; Start 01/24/20 at 11:45 Atropine Sulfate (ATROPINE 0.5mg SYRINGE) 0.5 mg PRN Q5MIN PRN IV SEE COMMENTS; Start 01/24/20 at 11:45 Info (Tpn Per Pharmacy) 1 each PRN DAILY PRN MC SEE COMMENTS Last administered on 01/25/20at 12:31; Start 01/24/20 at 14:00 Sodium Chloride 90 meq/Potassium Chloride 50 meq/ Potassium Phosphate 13.6 mmol/Magnesium Sulfate 10 meq/ Calcium Gluconate 10 meq/ Multivitamins 10 ml/Chromium/ Copper/Manganese/ Seleni/Zn 0.5 ml/ Total Parenteral Nutrition/Amino Acids/Dextrose 1,512 ml @ 63 mls/hr TPN CONT IV Last administered on 01/24/20at 21:33; Start 01/24/20 at 22:00; Stop 01/25/20 at 21:59 Fentanyl Citrate 55 ml @ 1.98 mls/hr CONT PRN IV SEE PROTOCOL; Start 01/24/20 at 17:00 Sodium Chloride 90 meq/Potassium Chloride 50 meq/ Potassium Phosphate 13.6 mmol/Magnesium Sulfate 10 meq/ Calcium Gluconate 10 meq/ Multivitamins 10 ml/Chromium/ Copper/Manganese/ Seleni/Zn 0.5 ml/ Total Parenteral Nut rition/Amino Acids/Dextrose/ Fat Emulsion Intravenous 1,512 ml @ 63 mls/hr TPN CONT IV ; Start 01/25/20 at 22:00; Stop 01/26/20 at 21:59 Etomidate (Amidate) 20 mg STK-MED ONCE IV ; Start 01/24/20 at 13:00; Stop 01/25/20 at 12:51; Status DC Succinylcholine Chloride (Anectine) 200 mg STK-MED ONCE .ROUTE ; Start 01/24/20 at 13:00; Stop 01/25/20 at 12:51; Status DC Active Scripts Active Reported Flovent 110MCG Hfa (Fluticasone Propionate) 12 Gm Aer.w.adap 2 Puff IH BID Proair Hfa Inhaler (Albuterol Sulfate) 8.5 Gm Hfa.aer.ad 2 Puff IH PRN Q4-6HRS PRN 21 Days Cetirizine Hcl 10 Mg Tablet 1 Tab PO DAILY Premarin (Estrogens, Conjugated) 0.45 Mg Tablet 1 Tab PO DAILY Vitals/I & O Vital Sign - Last 24 Hours 01/24/20 01/24/20 01/24/20 01/24/20 14:00 15:00 16:00 16:00 Temp 98.6 98.6 Pulse 84 98 98 Resp 30 B/P (MAP) 111/77 (88) 124/83 (97) 154/82 (106) Pulse Ox 95 95 97 O2 Delivery Ventilator Ventilator Ventilator Mechanical Ventilator 01/24/20 01/24/20 01/24/20 01/24/20 16:13 17:00 18:00 19:00 Temp 98.4 98.4 Pulse 70 65 61 Resp 24 26 B/P (MAP) 119/75 (90) 126/80 (95) 118/70 (86) Pulse Ox 100 97 97 97 O2 Delivery Ventilator Ventilator Ventilator Ventilator 01/24/20 01/24/20 01/24/20 01/24/20 20:00 20:00 20:53 21:00 Pulse 63 66 Resp 26 14 B/P (MAP) 120/80 (93) 115/73 (87) Pulse Ox 100 100 100 O2 Delivery Ventilator Mechanical Ventilator Ventilator Ventilator 01/24/20 01/24/20 01/25/20 01/25/20 22:00 23:09 00:00 00:00 Temp 99.0 99.0 Pulse 72 67 72 Resp 15 15 15 B/P (MAP) 121/79 (93) 111/65 (80) 114/67 (83) Pulse Ox 100 100 100 O2 Delivery Ventilator Ventilator Mechanical Ventilator Ventilator 01/25/20 01/25/20 01/25/20 01/25/20 00:30 01:00 02:00 03:00 Pulse 76 66 68 Resp 21 14 17 B/P (MAP) 117/75 (89) 95/66 (76) 108/68 (81) Pulse Ox 100 98 99 98 O2 Delivery Ventilator Ventilator Ventilator Ventilator 01/25/20 01/25/20 01/25/20 01/25/20 03:51 04:00 04:35 05:17 Pulse 72 70 Resp 15 14 B/P (MAP) 115/74 (88) 107/71 (83) Pulse Ox 99 99 97 O2 Delivery Ventilator Mechanical Ventilator Ventilator Ventilator 01/25/20 01/25/20 01/25/20 01/25/20 06:11 07:00 08:00 08:00 Temp 98.5 98.5 Pulse 68 64 68 Resp 14 14 B/P (MAP) 114/61 (78) 105/64 (78) 109/65 (80) Pulse Ox 100 100 100 O2 Delivery Ventilator Ventilator Ventilator Mechanical Ventilator 01/25/20 01/25/20 01/25/20 01/25/20 08:05 08:10 09:00 10:00 Pulse 68 64 B/P (MAP) 113/63 (80) 116/72 (87) Pulse Ox 99 99 100 O2 Delivery Ventilator Ventilator Ventilator Ventilator 01/25/20 01/25/20 01/25/20 01/25/20 10:06 11:00 12:00 12:00 Temp 98.6 98.6 Pulse 62 68 Resp 32 21 B/P (MAP) 116/71 (86) 119/72 (88) Pulse Ox 100 98 O2 Delivery Ventilator Ventilator Ventilator Mechanical Ventilator 4/05/0801/25/20 01/25/20 12:15 13:00 13:18 Pulse 65 Resp 25 B/P (MAP) 118/62 (80) Pulse Ox 99 100 O2 Delivery Ventilator Ventilator Ventilator Intake and Output 01/24/20 01/24/20 01/25/20 15:00 23:00 07:00 Intake Total 50 ml 1240.7 ml 2108 ml Output Total 3150 ml 1625 ml 975 ml Balance -3100 ml -384.3 ml 1133 ml CORNELIUS DURON MD Jan 25, 2020 13:56
--- NOTE | 2020-01-25 16:11 | PDOC ---
PULMONARY PROGRESS NOTES Subjective Patient did well earlier today, on trial now extubated anxious but not more short of breath Vitals Vital Signs Date Time Temp Pulse Resp B/P (MAP) Pulse Ox O2 Delivery O2 Flow Rate FiO2 01/25/20 15:00 80 23 108/63 (78) 99 Nasal Cannula 4.0 01/25/20 12:00 98.6 98.6 Lungs: Clear Cardiovascular: S1, S2 Abdomen: Soft Extremities: Other (Edema) Skin: Warm Labs Laboratory Tests Test 01/24/20 05:45 01/24/20 08:30 01/25/20 06:10 01/25/20 08:00 White Blood Count 7.6 x10^3/uL (4.0-11.0) Red Blood Count 3.52 x10^6/uL (3.50-5.40) Hemoglobin 10.1 g/dL (12.0-15.5) Hematocrit 30.6 % (36.0-47.0) Mean Corpuscular Volume 87 fL (79-100) Mean Corpuscular Hemoglobin 29 pg (25-35) Mean Corpuscular Hemoglobin Concent 33 g/dL (31-37) Red Cell Distribution Width 14.3 % (11.5-14.5) Platelet Count 429 x10^3/uL (140-400) Sodium Level 143 mmol/L (136-145) 138 mmol/L (136-145) Potassium Level 4.7 mmol/L (3.5-5.1) 4.3 mmol/L (3.5-5.1) Chloride Level 107 mmol/L (98-107) 104 mmol/L (98-107) Carbon Dioxide Level 28 mmol/L (21-32) 27 mmol/L (21-32) Anion Gap 8 (6-14) 7 (6-14) Blood Urea Nitrogen 10 mg/dL (7-20) 12 mg/dL (7-20) Creatinine 0.6 mg/dL (0.6-1.0) 0.6 mg/dL (0.6-1.0) Estimated GFR (Cockcroft-Gault) 106.3 106.3 Glucose Level 99 mg/dL (70-99) 157 mg/dL (70-99) Calcium Level 9.0 mg/dL (8.5-10.1) 8.9 mg/dL (8.5-10.1) O2 Saturation 95 % (92-99) 94 % (92-99) Arterial Blood pH 7.47 (7.35-7.45) 7.45 (7.35-7.45) Arterial Blood pCO2 at Patient Temp 35 mmHg (35-46) 33 mmHg (35-46) Arterial Blood pO2 at Patient Temp 71 mmHg (75-108) 70 mmHg (75-108) Arterial Blood HCO3 25 mmol/L (21-28) 23 mmol/L (21-28) Arterial Blood Base Excess 1 mmol/L (-3-3) -1 mmol/L (-3-3) FiO2 40 40 Phosphorus Level 4.0 mg/dL (2.6-4.7) Magnesium Level 2.1 mg/dL (1.8-2.4) Triglycerides Level 157 mg/dL (0-150) Test 01/25/20 11:26 01/25/20 13:15 Glucose (Fingerstick) 153 mg/dL (70-99) O2 Saturation 98 % (92-99) Arterial Blood pH 7.43 (7.35-7.45) Arterial Blood pCO2 at Patient Temp 36 mmHg (35-46) Arterial Blood pO2 at Patient Temp 111 mmHg (75-108) Arterial Blood HCO3 24 mmol/L (21-28) Arterial Blood Base Excess -1 mmol/L (-3-3) FiO2 40 Laboratory Tests Test 01/25/20 06:10 01/25/20 08:00 01/25/20 11:26 01/25/20 13:15 Sodium Level 138 mmol/L (136-145) Potassium Level 4.3 mmol/L (3.5-5.1) Chloride Level 104 mmol/L (98-107) Carbon Dioxide Level 27 mmol/L (21-32) Anion Gap 7 (6-14) Blood Urea Nitrogen 12 mg/dL (7-20) Creatinine 0.6 mg/dL (0.6-1.0) Estimated GFR (Cockcroft-Gault) 106.3 Glucose Level 157 mg/dL (70-99) Calcium Level 8.9 mg/dL (8.5-10.1) Phosphorus Level 4.0 mg/dL (2.6-4.7) Magnesium Level 2.1 mg/dL (1.8-2.4) Triglycerides Level 157 mg/dL (0-150) O2 Saturation 94 % (92-99) 98 % (92-99) Arterial Blood pH 7.45 (7.35-7.45) 7.43 (7.35-7.45) Arterial Blood pCO2 at Patient Temp 33 mmHg (35-46) 36 mmHg (35-46) Arterial Blood pO2 at Patient Temp 70 mmHg (75-108) 111 mmHg (75-108) Arterial Blood HCO3 23 mmol/L (21-28) 24 mmol/L (21-28) Arterial Blood Base Excess -1 mmol/L (-3-3) -1 mmol/L (-3-3) FiO2 40 40 Glucose (Fingerstick) 153 mg/dL (70-99) Medications Active Scripts Medications Dose Route/Sig Max Daily Dose Days Date Category Flovent 110MCG Hfa (Fluticasone Propionate) 12 Gm Aer.w.adap 2 Puff IH BID 01/15/20 Reported Proair Hfa Inhaler (Albuterol Sulfate) 8.5 Gm Hfa.aer.ad 2 Puff IH PRN Q4-6HRS PRN 21 01/15/20 Reported Cetirizine Hcl 10 Mg Tablet 1 Tab PO DAILY 01/15/20 Reported Premarin (Estrogens, Conjugated) 0.45 Mg Tablet 1 Tab PO DAILY 01/15/20 Reported Comments CXR 01/24/2020 IMPRESSION: 1. Bilateral infiltrates have improved mildly. Impression . Acute hypoxic respiratory failure due to COVID-19 pneumonia/ ARDS- improving Positive COVID19 Bilateral infiltrates due to COVID19 pneumonia, underlying Asthma Mild transaminitis Anxiety Plan . Patient extubated 01/24. Add Ativan for anxiety Completed Plaquenil Course Bronchodilators Follow CXR, reviewed today Bilateral infiltrates have improved mildly. Zosyn, azithromycin ( dc on day 5) Follow clinical course Monitor LFTs, mild improvement D/W RN ./ RT Total cct 30 min including review of cxr, labs, ABG , discussion with RN/ RT and complex medical decision making and vent management GREGORY TSANG MD Jan 25, 2020 16:11
[2020-01-25] MEDS: ENOXAPARIN 40 MG/0.4 ML SYRINGE. SQ SCH (16:19)
[2020-01-25] MEDS: ONDANSETRON PF 4 MG/2 ML VIAL. IV PRN (20:59)
[2020-01-25] MEDS ORDERED: DEXTROSE 70% IV SCH ×10 (22:00)
[2020-01-25] MEDS ORDERED: TOTAL PARENTERAL NUTRITION IV SCH ×10 (22:00)
[2020-01-25] MEDS ORDERED: AMINO ACID IV SCH ×10 (22:00)
[2020-01-25] MEDS ORDERED: [UNRECOGNIZED DRUG - OTHER] IV SCH ×10 (22:00)
[2020-01-26] VITALS (18 sets, daily range): BP systolic 113–140; BP diastolic 61–92
[2020-01-26] MEDS: ONDANSETRON PF 4 MG/2 ML VIAL. IV PRN ×2 (04:37→12:13)
[2020-01-26] MEDS: PIPERACILLIN/TAZOBACTAM 3.375 GM in IV NORMAL SALINE 50ML 50 ML IV SCH ×4 (05:07→23:39)
--- NOTE | 2020-01-26 05:42 | RAD ---
EXAM: CHEST ONE VIEW. HISTORY: Respiratory failure. COMPARISON: 01/24/2020. FINDINGS: A frontal view of the chest is obtained. A right arm PICC line has its tip in the superior vena cava. Perihilar and basilar interstitial opacities have improved in the left base and are stable elsewhere. There is no pneumothorax or clear pleural effusion. The heart is not enlarged. IMPRESSION: 1. Bilateral infiltrates are improved in the left base and stable elsewhere. Electronically signed by: Autumn Cisneros MD (01/26/2020 5:39 AM) [facility]
[2020-01-26 06:12] LABS: CREATININE 0.6 mg/dL (0.6-1.0); GFR 106.3; MAGNESIUM 2.1 mg/dL (1.8-2.4); PHOSPHORUS 3.8 mg/dL (2.6-4.7); POTASSIUM 4.2 mmol/L (3.5-5.1)
[2020-01-26] MEDS: FAMOTIDINE 20 MG/2 ML VIAL IVP SCH ×2 (07:50→21:39)
[2020-01-26] MEDS: ASCORBIC ACID 500 MG TABLET PO SCH (09:00)
[2020-01-26] MEDS: MULTIVITAMINS,THERAPEUTIC 5 ML ORAL LIQUID. PEG SCH (09:00)
[2020-01-26] MEDS: ZINC SULFATE 220 MG CAPSULE. PO SCH (09:00)
--- NOTE | 2020-01-26 10:54 | PDOC ---
PULMONARY PROGRESS NOTES Subjective Patient extubated on 01 24, no increasing shortness of breath anxiety is an issue Vitals Vital Signs Date Time Temp Pulse Resp B/P (MAP) Pulse Ox O2 Delivery O2 Flow Rate FiO2 01/26/20 09:00 94 32 124/75 (91) 98 Nasal Cannula 4.0 01/26/20 08:00 98.5 98.5 Lungs: Clear Cardiovascular: S1, S2 Abdomen: Soft Extremities: Other (Edema) Skin: Warm Labs Laboratory Tests Test 01/25/20 06:10 01/25/20 08:00 01/25/20 11:26 01/25/20 13:15 Sodium Level 138 mmol/L (136-145) Potassium Level 4.3 mmol/L (3.5-5.1) Chloride Level 104 mmol/L (98-107) Carbon Dioxide Level 27 mmol/L (21-32) Anion Gap 7 (6-14) Blood Urea Nitrogen 12 mg/dL (7-20) Creatinine 0.6 mg/dL (0.6-1.0) Estimated GFR (Cockcroft-Gault) 106.3 Glucose Level 157 mg/dL (70-99) Calcium Level 8.9 mg/dL (8.5-10.1) Phosphorus Level 4.0 mg/dL (2.6-4.7) Magnesium Level 2.1 mg/dL (1.8-2.4) Triglycerides Level 157 mg/dL (0-150) O2 Saturation 94 % (92-99) 98 % (92-99) Arterial Blood pH 7.45 (7.35-7.45) 7.43 (7.35-7.45) Arterial Blood pCO2 at Patient Temp 33 mmHg (35-46) 36 mmHg (35-46) Arterial Blood pO2 at Patient Temp 70 mmHg (75-108) 111 mmHg (75-108) Arterial Blood HCO3 23 mmol/L (21-28) 24 mmol/L (21-28) Arterial Blood Base Excess -1 mmol/L (-3-3) -1 mmol/L (-3-3) FiO2 40 40 Glucose (Fingerstick) 153 mg/dL (70-99) Test 01/26/20 05:30 Sodium Level 139 mmol/L (136-145) Potassium Level 4.2 mmol/L (3.5-5.1) Chloride Level 104 mmol/L (98-107) Carbon Dioxide Level 27 mmol/L (21-32) Anion Gap 8 (6-14) Blood Urea Nitrogen 13 mg/dL (7-20) Creatinine 0.6 mg/dL (0.6-1.0) Estimated GFR (Cockcroft-Gault) 106.3 Glucose Level 113 mg/dL (70-99) Calcium Level 9.0 mg/dL (8.5-10.1) Phosphorus Level 3.8 mg/dL (2.6-4.7) Magnesium Level 2.1 mg/dL (1.8-2.4) Laboratory Tests Test 01/25/20 11:26 01/25/20 13:15 01/26/20 05:30 Glucose (Fingerstick) 153 mg/dL (70-99) O2 Saturation 98 % (92-99) Arterial Blood pH 7.43 (7.35-7.45) Arterial Blood pCO2 at Patient Temp 36 mmHg (35-46) Arterial Blood pO2 at Patient Temp 111 mmHg (75-108) Arterial Blood HCO3 24 mmol/L (21-28) Arterial Blood Base Excess -1 mmol/L (-3-3) FiO2 40 Sodium Level 139 mmol/L (136-145) Potassium Level 4.2 mmol/L (3.5-5.1) Chloride Level 104 mmol/L (98-107) Carbon Dioxide Level 27 mmol/L (21-32) Anion Gap 8 (6-14) Blood Urea Nitrogen 13 mg/dL (7-20) Creatinine 0.6 mg/dL (0.6-1.0) Estimated GFR (Cockcroft-Gault) 106.3 Glucose Level 113 mg/dL (70-99) Calcium Level 9.0 mg/dL (8.5-10.1) Phosphorus Level 3.8 mg/dL (2.6-4.7) Magnesium Level 2.1 mg/dL (1.8-2.4) Medications Active Scripts Medications Dose Route/Sig Max Daily Dose Days Date Category Flovent 110MCG Hfa (Fluticasone Propionate) 12 Gm Aer.w.adap 2 Puff IH BID 01/15/20 Reported Proair Hfa Inhaler (Albuterol Sulfate) 8.5 Gm Hfa.aer.ad 2 Puff IH PRN Q4-6HRS PRN 21 01/15/20 Reported Cetirizine Hcl 10 Mg Tablet 1 Tab PO DAILY 01/15/20 Reported Premarin (Estrogens, Conjugated) 0.45 Mg Tablet 1 Tab PO DAILY 01/15/20 Reported Comments CXR 01/24/2020 IMPRESSION: 1. Bilateral infiltrates have improved mildly. Impression . Acute hypoxic respiratory failure due to COVID-19 pneumonia/ ARDS- improving Positive COVID19 Bilateral infiltrates due to COVID19 pneumonia, underlying Asthma Mild transaminitis Anxiety Plan . Cough is strong, start oral diet Transfer out of the intensive care unit Patient extubated 01/24. Add Ativan for anxiety Completed Plaquenil Course Bronchodilators Zosyn, azithromycin ( dc on day 5) D/W RN ./ RT Total cct 30 min including review of cxr, labs, ABG , discussion with RN/ RT and complex medical decision making and vent management GREGORY TSANG MD Jan 26, 2020 10:54
[2020-01-26] MEDS: TPN PER PHARMACY MC PRN (11:20)
--- NOTE | 2020-01-26 15:12 | PDOC ---
PROGRESS NOTES Chief Complaint Chief Complaint 1. Patchy left mid and bibasilar opacities,C/W COVID-19 viral pneumonia. 2. ACUTE HYPOXIC RESP FAILURE status post extubation on 01/26/2020 3. COVID-19 POS AG 4. HX ASTHMA 5. History of hysterectomy 6. Overweight 7. Mild transaminitis 8. Borderline diabetic Plan: monitor off extubation hopefully move to the 6th floor to continue her recovery monitor hemodynamics further recommendations based on clinical course reassess in the am History of Present Illness History of Present Illness Patient with no acute events reported overnight, seems to be doing better, currently on pressure support ventilation, will try to do a weaning trial Vitals Vitals Vital Signs Date Time Temp Pulse Resp B/P (MAP) Pulse Ox O2 Delivery O2 Flow Rate FiO2 01/26/20 12:00 98.0 95 30 126/74 (91) 99 Nasal Cannula 4.0 98.0 Physical Exam General: Other (sedated and on the vent) Heart: Regular rate, Normal S1, No murmurs Lungs: Clear Abdomen: Normal bowel sounds, Soft, No tenderness, No hepatosplenomegaly Extremities: No cyanosis, No edema, Normal pulses Skin: No rashes, No significant lesion Labs LABS Laboratory Tests Test 01/26/20 05:30 Sodium Level 139 mmol/L (136-145) Potassium Level 4.2 mmol/L (3.5-5.1) Chloride Level 104 mmol/L (98-107) Carbon Dioxide Level 27 mmol/L (21-32) Anion Gap 8 (6-14) Blood Urea Nitrogen 13 mg/dL (7-20) Creatinine 0.6 mg/dL (0.6-1.0) Estimated GFR (Cockcroft-Gault) 106.3 Glucose Level 113 mg/dL (70-99) Calcium Level 9.0 mg/dL (8.5-10.1) Phosphorus Level 3.8 mg/dL (2.6-4.7) Magnesium Level 2.1 mg/dL (1.8-2.4) Assessment and Plan Assessmemt and Plan Problems Medical Problems: (1) COVID-19 Status: Acute (2) Dyspnea Status: Acute Comment Review of Relevant I have reviewed the following items augusto (where applicable) has been applied. Labs Laboratory Tests Test 01/25/20 06:10 01/25/20 08:00 01/25/20 11:26 01/25/20 13:15 Sodium Level 138 mmol/L (136-145) Potassium Level 4.3 mmol/L (3.5-5.1) Chloride Level 104 mmol/L (98-107) Carbon Dioxide Level 27 mmol/L (21-32) Anion Gap 7 (6-14) Blood Urea Nitrogen 12 mg/dL (7-20) Creatinine 0.6 mg/dL (0.6-1.0) Estimated GFR (Cockcroft-Gault) 106.3 Glucose Level 157 mg/dL (70-99) Calcium Level 8.9 mg/dL (8.5-10.1) Phosphorus Level 4.0 mg/dL (2.6-4.7) Magnesium Level 2.1 mg/dL (1.8-2.4) Triglycerides Level 157 mg/dL (0-150) O2 Saturation 94 % (92-99) 98 % (92-99) Arterial Blood pH 7.45 (7.35-7.45) 7.43 (7.35-7.45) Arterial Blood pCO2 at Patient Temp 33 mmHg (35-46) 36 mmHg (35-46) Arterial Blood pO2 at Patient Temp 70 mmHg (75-108) 111 mmHg (75-108) Arterial Blood HCO3 23 mmol/L (21-28) 24 mmol/L (21-28) Arterial Blood Base Excess -1 mmol/L (-3-3) -1 mmol/L (-3-3) FiO2 40 40 Glucose (Fingerstick) 153 mg/dL (70-99) Test 01/26/20 05:30 Sodium Level 139 mmol/L (136-145) Potassium Level 4.2 mmol/L (3.5-5.1) Chloride Level 104 mmol/L (98-107) Carbon Dioxide Level 27 mmol/L (21-32) Anion Gap 8 (6-14) Blood Urea Nitrogen 13 mg/dL (7-20) Creatinine 0.6 mg/dL (0.6-1.0) Estimated GFR (Cockcroft-Gault) 106.3 Glucose Level 113 mg/dL (70-99) Calcium Level 9.0 mg/dL (8.5-10.1) Phosphorus Level 3.8 mg/dL (2.6-4.7) Magnesium Level 2.1 mg/dL (1.8-2.4) Laboratory Tests Test 01/26/20 05:30 Sodium Level 139 mmol/L (136-145) Potassium Level 4.2 mmol/L (3.5-5.1) Chloride Level 104 mmol/L (98-107) Carbon Dioxide Level 27 mmol/L (21-32) Anion Gap 8 (6-14) Blood Urea Nitrogen 13 mg/dL (7-20) Creatinine 0.6 mg/dL (0.6-1.0) Estimated GFR (Cockcroft-Gault) 106.3 Glucose Level 113 mg/dL (70-99) Calcium Level 9.0 mg/dL (8.5-10.1) Phosphorus Level 3.8 mg/dL (2.6-4.7) Magnesium Level 2.1 mg/dL (1.8-2.4) Microbiology 01/16/20 Blood Culture - Final, Complete NO GROWTH AFTER 5 DAYS Medications Current Medications Sodium Chloride (Normal Saline Flush) 3 ml QSHIFT PRN IV AFTER MEDS AND BLOOD DRAWS; Start 01/15/20 at 15:45 Sodium Chloride 1,000 ml @ 20 mls/hr Q24H IV Last administered on 01/25/20at 02:05; Start 01/15/20 at 15:40 Ondansetron HCl (Zofran) 4 mg PRN Q4HRS PRN IV NAUSEA/VOMITING Last administered on 01/26/20at 12:13; Start 01/15/20 at 15:45 Acetaminophen (Tylenol) 650 mg PRN Q4HRS PRN PO TEMP OVER 100.4F OR MILD PAIN Last administered on 01/16/20at 20:17; Start 01/15/20 at 15:45 Al Hydroxide/Mg Hydroxide (Mylanta Plus Xs) 30 ml PRN DAILY PRN PO HEARTBURN / GAS; Start 01/15/20 at 15:45 Clonidine HCl (Catapres) 0.1 mg PRN Q6HRS PRN PO SBP>160 OR DBP>90; Start 01/15/20 at 15:45 Sodium Monofluorophosphate (Fleet Adult) 133 ml PRN DAILY PRN NM CONSTIPATION; Start 01/15/20 at 15:45; Stop 01/21/20 at 09:37; Status DC Docusate Sodium (Colace) 100 mg PRN BID PRN PO CONSTIPATION; Start 01/15/20 at 15:45 Albuterol Sulfate (Ventolin Neb Soln) 2.5 mg PRN Q4HRS PRN NEB SHORTNESS OF BREATH Last administered on 01/16/20at 08:55; Start 01/15/20 at 15:45; Stop 01/16/20 at 11:22; Status DC Guaifenesin (Robitussin) 200 mg PRN Q4HRS PRN PO COUGH Last administered on 01/16/20at 06:14; Start 01/15/20 at 15:45; Stop 01/16/20 at 11:22; Status DC Lorazepam (Ativan) 0.5 mg PRN Q4HRS PRN PO ANXIETY / AGITATION Last administered on 01/17/20at 09:30; Start 01/15/20 at 15:45 Enoxaparin Sodium (Lovenox 40mg Syringe) 40 mg Q24H SQ Last administered on 01/25/20at 16:19; Start 01/15/20 at 16:00 Piperacillin Sod/ Tazobactam Sod 3.375 gm/Sodium Chloride 50 ml @ 100 mls/hr Q6HRS IV Last administered on 01/26/20at 12:13; Start 01/15/20 at 16:00 Hydroxychloroquine Sulfate (Plaquenil) 400 mg 1X ONCE PO Last administered on 01/15/20at 16:15; Start 01/15/20 at 16:15; Stop 01/15/20 at 16:16; Status DC Acetaminophen/ Hydrocodone Bitart (Lortab 5/325) 1 tab PRN Q4HRS PRN PO MODERATE PAIN 4-6 Last administered on 01/17/20at 09:31; Start 01/15/20 at 23:30 Albuterol Sulfate (Ventolin Neb Soln) 2.5 mg PRN QID PRN NEB SHORTNESS OF BREATH Last administered on 01/17/20at 10:19; Start 01/16/20 at 11:30 Azithromycin 500 mg/Sodium Chloride 250 ml @ 250 mls/hr Q24H IV Last administered on 01/20/20at 12:42; Start 01/16/20 at 12:00; Stop 01/20/20 at 14:46; Status DC Throat Lozenges (Cepacol Sore Throat Lozenge) 1 salima PRN Q2HRS PRN PO SORE THROAT Last administered on 01/16/20at 20:17; Start 01/16/20 at 11:30 Guaifenesin/ Codeine Phosphate (Robitussin Ac) 5 ml PRN Q6HRS PRN PO COUGH Last administered on 01/16/20at 19:06; Start 01/16/20 at 11:30; Stop 01/17/20 at 09:14; Status DC Hydroxychloroquine Sulfate (Plaquenil) 200 mg BID PO Last administered on 01/19/20at 20:49; Start 01/16/20 at 12:00; Stop 01/19/20 at 21:01; Status DC Sodium Chloride 1,000 ml @ 1,440 mls/hr Q42M IV ; Start 01/16/20 at 15:00; Stop 01/16/20 at 16:00; Status DC Sodium Chloride 500 ml @ 1,000 mls/hr PRN Q30MIN PRN IV SEE COMMENTS; Start 01/16/20 at 15:00 Lactobacillus Rhamnosus (Culturelle) 1 cap BID PO Last administered on 01/25/20at 09:00; Start 01/16/20 at 21:00; Stop 01/26/20 at 11:28; Status DC Guaifenesin/ Codeine Phosphate (Robitussin Ac) 5 ml PRN Q4HRS PRN PO COUGH Last administered on 01/17/20at 09:31; Start 01/17/20 at 09:15 Fentanyl Citrate 30 ml @ 0 mls/hr CONT PRN IV SEE PROTOCOL Last administered on 01/23/20at 08:07; Start 01/17/20 at 20:15; Stop 01/24/20 at 16:59; Status DC Fentanyl Citrate (Fentanyl 2ml Vial) 25 mcg PRN Q1HR PRN IV SEE COMMENTS; Start 01/17/20 at 20:15 Fentanyl Citrate (Fentanyl 2ml Vial) 50 mcg PRN Q1HR PRN IV SEE COMMENTS; Start 01/17/20 at 20:15 Midazolam HCl 100 ml @ 0 mls/hr CONT PRN IV SEE PROTOCOL Last administered on 01/23/20at 05:51; Start 01/17/20 at 20:15 Succinylcholine Chloride (Anectine) 200 mg STK-MED ONCE .ROUTE ; Start 01/17/20 at 20:12; Stop 01/17/20 at 20:12; Status DC Vecuronium [place] (Norcuron Bolus) 10 mg STK-MED ONCE IV ; Start 01/17/20 at 20:12; Stop 01/17/20 at 20:12; Status DC Etomidate (Amidate) 20 mg STK-MED ONCE IV ; Start 01/17/20 at 20:33; Stop 01/17/20 at 20:33; Status DC Famotidine (Pepcid Vial) 20 mg BID IVP Last administered on 01/26/20at 07:50; Start 01/18/20 at 21:00 Multivitamins/ Minerals Therapeutic (Centrum Multivit-Mineral Liq) 5 ml DAILY PEG Last administered on 01/25/20at 09:00; Start 01/19/20 at 09:00 Ascorbic Acid (Vitamin C) 500 mg DAILY PO Last administered on 01/25/20at 08:59; Start 01/18/20 at 15:00 Zinc Sulfate (Orazinc) 220 mg DAILY PO Last administered on 01/25/20at 09:00; Start 01/18/20 at 15:00 Amino Acids/ Glycerin/ Electrolytes 1,000 ml @ 80 mls/hr [id number] IV Last administered on 01/24/20at 15:31; Start 01/19/20 at 13:45; Stop 01/24/20 at 21:59; Status DC Potassium Chloride/Water 100 ml @ 100 mls/hr Q1H IV Last administered on 01/19/20at 22:10; Start 01/19/20 at 19:00; Stop 01/19/20 at 20:59; Status DC Alteplase, Recombinant (Cathflo For Central Catheter Clearance) 1 mg 1X ONCE INT CAT Last administered on 01/21/20at 10:00; Start 01/21/20 at 10:00; Stop 01/21/20 at 10:01; Status DC Norepinephrine Bitartrate 8 mg/ Dextrose 258 ml @ 18.189 mls/ hr CONT PRN IV PER PROTOCOL Last administered on 01/21/20at 14:10; Start 01/21/20 at 10:45 Alteplase, Recombinant (Cathflo For Central Catheter Clearance) 3 mg 1X ONCE INT CAT Last administered on 01/22/20at 05:28; Start 01/22/20 at 05:15; Stop 01/22/20 at 05:16; Status DC Potassium Chloride (Klor-Con) 40 meq 1X ONCE PO Last administered on 01/22/20at 15:26; Start 01/22/20 at 14:30; Stop 01/22/20 at 14:31; Status DC Ondansetron HCl (Zofran) 4 mg PRN Q6HRS PRN IVP NAUSEA/VOMITING; Start 01/23/20 at 08:30; Stop 01/25/20 at 07:46; Status DC Propofol 100 ml @ As Directed STK-MED ONCE IV ; Start 01/23/20 at 16:16; Stop 01/23/20 at 16:17; Status DC Propofol 100 ml @ 1.485 mls/ hr CONT PRN IV SEE I/O RECORD Last administered on 01/24/20at 06:19; Start 01/23/20 at 16:30 Dexmedetomidine HCl 400 mcg/ Sodium Chloride 100 ml @ 0 mls/hr CONT PRN IV SEDATION Last administered on 01/25/20at 06:24; Start 01/24/20 at 11:45 Sodium Chloride 500 ml @ 500 mls/hr 1X PRN PRN IV SEDATION; Start 01/24/20 at 11:45 Atropine Sulfate (ATROPINE 0.5mg SYRINGE) 0.5 mg PRN Q5MIN PRN IV SEE COMMENTS; Start 01/24/20 at 11:45 Info (Tpn Per Pharmacy) 1 each PRN DAILY PRN MC SEE COMMENTS Last administered on 01/26/20at 11:20; Start 01/24/20 at 14:00 Sodium Chloride 90 meq/Potassium Chloride 50 meq/ Potassium Phosphate 13.6 mm ol/Magnesium Sulfate 10 meq/ Calcium Gluconate 10 meq/ Multivitamins 10 ml/Chromium/ Copper/Manganese/ Seleni/Zn 0.5 ml/ Total Parenteral Nutrition/Amino Acids/Dextrose 1,512 ml @ 63 mls/hr TPN CONT IV Last administered on 01/24/20at 21:33; Start 01/24/20 at 22:00; Stop 01/25/20 at 21:59; Status DC Fentanyl Citrate 55 ml @ 1.98 mls/hr CONT PRN IV SEE PROTOCOL; Start 01/24/20 at 17:00 Sodium Chloride 90 meq/Potassium Chloride 50 meq/ Potassium Phosphate 13.6 mmol/Magnesium Sulfate 10 meq/ Calcium Gluconate 10 meq/ Multivitamins 10 ml/Chromium/ Copper/Manganese/ Seleni/Zn 0.5 ml/ Total Parenteral Nutrition/Amino Acids/Dextrose/ Fat Emulsion Intravenous 1,512 ml @ 63 mls/hr TPN CONT IV Last administered on 01/25/20at 21:30; Start 01/25/20 at 22:00; Stop 01/26/20 at 21:59 Etomidate (Amidate) 20 mg STK-MED ONCE IV ; Start 01/24/20 at 13:00; Stop 01/25/20 at 12:51; Status DC Succinylcholine Chloride (Anectine) 200 mg STK-MED ONCE .ROUTE ; Start 01/24/20 at 13:00; Stop 01/25/20 at 12:51; Status DC Lorazepam (Ativan Inj) 0.25 mg PRN Q4HRS PRN IVP ANXIETY / AGITATION Last administered on 01/26/20at 13:17; Start 01/25/20 at 15:45 Sodium Chloride 90 meq/Potassium Chloride 50 meq/ Potassium Phosphate 13.6 mmol/Magnesium Sulfate 10 meq/ Calcium Gluconate 10 meq/ Multivitamins 10 ml/Chromium/ Copper/Manganese/ Seleni/Zn 0.5 ml/ Total Parenteral Nutrition/Amino Acids/Dextrose/ Fat Emulsion Intravenous 1,512 ml @ 63 mls/hr TPN CONT IV ; Start 01/26/20 at 22:00; Stop 01/27/20 at 21:59 Active Scripts Active Reported Flovent 110MCG Hfa (Fluticasone Propionate) 12 Gm Aer.w.adap 2 Puff IH BID Proair Hfa Inhaler (Albuterol Sulfate) 8.5 Gm Hfa.aer.ad 2 Puff IH PRN Q4-6HRS PRN 21 Days Cetirizine Hcl 10 Mg Tablet 1 Tab PO DAILY Premarin (Estrogens, Conjugated) 0.45 Mg Tablet 1 Tab PO DAILY Vitals/I & O Vital Sign - Last 24 Hours 01/25/20 01/25/20 01/25/20 01/25/20 16:00 16:00 17:00 18:00 Temp 98.6 98.5 98.6 98.5 Pulse 96 96 101 Resp 24 B/P (MAP) 101/69 (80) 114/76 (89) 114/66 (82) Pulse Ox 94 97 98 O2 Delivery Nasal Cannula Nasal Cannula Nasal Cannula Nasal Cannula O2 Flow Rate 4.0 4.0 4.0 4.0 01/25/20 01/25/20 01/25/20 01/25/20 19:00 20:00 20:00 21:00 Temp 98.6 98.6 Pulse 101 106 112 Resp 34 30 36 B/P (MAP) 113/69 (84) 113/67 (82) 120/66 (84) Pulse Ox 97 97 98 O2 Delivery Nasal Cannula Nasal Cannula Nasal Cannula Nasal Cannula O2 Flow Rate 4.0 4.0 4.0 4.0 01/25/20 01/25/20 01/26/20 01/26/20 22:00 23:00 00:00 00:00 Temp 98.5 98.5 Pulse 108 112 104 Resp 37 37 31 B/P (MAP) 118/74 (89) 101/63 (76) 116/75 (89) Pulse Ox 98 99 93 O2 Delivery Nasal Cannula Nasal Cannula Nasal Cannula Nasal Cannula O2 Flow Rate 4.0 4.0 4.0 4.0 01/26/20 01/26/20 01/26/20 01/26/20 01:00 02:00 03:00 04:00 Pulse 112 104 104 Resp 34 38 39 B/P (MAP) 120/67 (84) 118/69 (85) 124/75 (91) Pulse Ox 97 90 98 O2 Delivery Nasal Cannula Nasal Cannula Nasal Cannula Nasal Cannula O2 Flow Rate 4.0 4.0 4.0 4.0 01/26/20 01/26/20 01/26/20 01/26/20 04:00 05:00 06:00 07:00 Temp 98.5 98.5 Pulse 90 100 107 92 Resp 33 35 32 30 B/P (MAP) 113/70 (84) 116/61 (79) 123/70 (87) 117/74 (88) Pulse Ox 97 97 99 98 O2 Delivery Nasal Cannula Nasal Cannula Nasal Cannula O2 Flow Rate 4.0 4.0 4.0 4.0 01/26/20 01/26/20 01/26/20 01/26/20 08:00 08:00 09:00 10:00 Temp 98.5 98.5 Pulse 96 94 88 Resp 32 32 28 B/P (MAP) 116/79 (91) 124/75 (91) 118/77 (91) Pulse Ox 99 98 97 O2 Delivery Nasal Cannula Nasal Cannula Nasal Cannula Nasal Cannula O2 Flow Rate 4.0 4.0 4.0 4.0 01/26/20 01/26/20 01/26/20 11:00 12:00 12:00 Temp 98.0 98.0 Pulse 86 95 Resp 24 30 B/P (MAP) 140/92 (108) 126/74 (91) Pulse Ox 98 99 O2 Delivery Nasal Cannula Nasal Cannula Nasal Cannula O2 Flow Rate 4.0 4.0 4.0 Intake and Output 01/25/20 01/25/20 01/26/20 15:00 23:00 07:00 Intake Total 100 ml 803 ml 1052 ml Output Total 785 ml 1315 ml 2000 ml Balance -685 ml -512 ml -948 ml CORNELIUS DURON MD Jan 26, 2020 15:12
[2020-01-26] MEDS: ENOXAPARIN 40 MG/0.4 ML SYRINGE. SQ SCH (18:00)
[2020-01-26] MEDS ORDERED: DEXTROSE 70% IV SCH ×10 (22:00)
[2020-01-26] MEDS ORDERED: TOTAL PARENTERAL NUTRITION IV SCH ×10 (22:00)
[2020-01-26] MEDS ORDERED: AMINO ACID IV SCH ×10 (22:00)
[2020-01-26] MEDS ORDERED: [UNRECOGNIZED DRUG - OTHER] IV SCH ×10 (22:00)
[2020-01-27] MEDS ORDERED: SODIUM CHLORIDE 0.65% NASAL SPRAY 45ML BOTTLE. NS PRN (00:15)
[2020-01-27] MEDS: guaiFENesin/CODEINE 100mg/10mg 5 ML LIQUID PO PRN (01:22)
[2020-01-27 03:00] VITALS: BP 126/74
[2020-01-27] MEDS: PIPERACILLIN/TAZOBACTAM 3.375 GM in IV NORMAL SALINE 50ML 50 ML IV SCH (05:27)
[2020-01-27] MEDS: ONDANSETRON PF 4 MG/2 ML VIAL. IV PRN ×3 (06:09→15:59)
[2020-01-27 06:30] LABS: CALCIUM 9.3 mg/dL (8.5-10.1); CREATININE 0.7 mg/dL (0.6-1.0); GFR 88.9; MAGNESIUM 2.2 mg/dL (1.8-2.4); PHOSPHORUS 4.3 mg/dL (2.6-4.7); POTASSIUM 4.2 mmol/L (3.5-5.1)
[2020-01-27 07:45] VITALS: BP 119/69
[2020-01-27] MEDS: FAMOTIDINE 20 MG/2 ML VIAL IVP SCH (09:04)
[2020-01-27] MEDS: ZINC SULFATE 220 MG CAPSULE. PO SCH (09:04)
[2020-01-27] MEDS: ASCORBIC ACID 500 MG TABLET PO SCH (09:04)
[2020-01-27] MEDS: MULTIVITAMINS,THERAPEUTIC 5 ML ORAL LIQUID. PEG SCH (09:04)
--- NOTE | 2020-01-27 10:22 | PDOC ---
PULMONARY PROGRESS NOTES Subjective Patient extubated on 01 24, nauseated at times, Vitals Vital Signs Date Time Temp Pulse Resp B/P (MAP) Pulse Ox O2 Delivery O2 Flow Rate FiO2 01/27/20 07:45 97.8 78 24 119/69 (86) 96 Room Air 97.8 01/26/20 23:00 4.0 Lungs: Clear Cardiovascular: S1, S2 Abdomen: Soft Extremities: Other (Edema) Skin: Warm Labs Laboratory Tests Test 01/25/20 11:26 01/25/20 13:15 01/26/20 05:30 01/27/20 05:45 Glucose (Fingerstick) 153 mg/dL (70-99) O2 Saturation 98 % (92-99) Arterial Blood pH 7.43 (7.35-7.45) Arterial Blood pCO2 at Patient Temp 36 mmHg (35-46) Arterial Blood pO2 at Patient Temp 111 mmHg (75-108) Arterial Blood HCO3 24 mmol/L (21-28) Arterial Blood Base Excess -1 mmol/L (-3-3) FiO2 40 Sodium Level 139 mmol/L (136-145) 141 mmol/L (136-145) Potassium Level 4.2 mmol/L (3.5-5.1) 4.2 mmol/L (3.5-5.1) Chloride Level 104 mmol/L (98-107) 105 mmol/L (98-107) Carbon Dioxide Level 27 mmol/L (21-32) 27 mmol/L (21-32) Anion Gap 8 (6-14) 9 (6-14) Blood Urea Nitrogen 13 mg/dL (7-20) 13 mg/dL (7-20) Creatinine 0.6 mg/dL (0.6-1.0) 0.7 mg/dL (0.6-1.0) Estimated GFR (Cockcroft-Gault) 106.3 88.9 Glucose Level 113 mg/dL (70-99) 104 mg/dL (70-99) Calcium Level 9.0 mg/dL (8.5-10.1) 9.3 mg/dL (8.5-10.1) Phosphorus Level 3.8 mg/dL (2.6-4.7) 4.3 mg/dL (2.6-4.7) Magnesium Level 2.1 mg/dL (1.8-2.4) 2.2 mg/dL (1.8-2.4) Laboratory Tests Test 01/27/20 05:45 Sodium Level 141 mmol/L (136-145) Potassium Level 4.2 mmol/L (3.5-5.1) Chloride Level 105 mmol/L (98-107) Carbon Dioxide Level 27 mmol/L (21-32) Anion Gap 9 (6-14) Blood Urea Nitrogen 13 mg/dL (7-20) Creatinine 0.7 mg/dL (0.6-1.0) Estimated GFR (Cockcroft-Gault) 88.9 Glucose Level 104 mg/dL (70-99) Calcium Level 9.3 mg/dL (8.5-10.1) Phosphorus Level 4.3 mg/dL (2.6-4.7) Magnesium Level 2.2 mg/dL (1.8-2.4) Medications Active Scripts Medications Dose Route/Sig Max Daily Dose Days Date Category Flovent 110MCG Hfa (Fluticasone Propionate) 12 Gm Aer.w.adap 2 Puff IH BID 01/15/20 Reported Proair Hfa Inhaler (Albuterol Sulfate) 8.5 Gm Hfa.aer.ad 2 Puff IH PRN Q4-6HRS PRN 21 01/15/20 Reported Cetirizine Hcl 10 Mg Tablet 1 Tab PO DAILY 01/15/20 Reported Premarin (Estrogens, Conjugated) 0.45 Mg Tablet 1 Tab PO DAILY 01/15/20 Reported Comments CXR 01/24/2020 IMPRESSION: 1. Bilateral infiltrates have improved mildly. Impression . Acute hypoxic respiratory failure due to COVID-19 pneumonia/ ARDS- improving Positive COVID19 Bilateral infiltrates due to COVID19 pneumonia, underlying Asthma Mild transaminitis Anxiety Plan . Increase oral intake, discontinue all medication PT OT Up to chair Transfer out of the intensive care unit Hopefully home in the next 24 to 48 hours GREGORY TSANG MD Jan 27, 2020 10:22
[2020-01-27 11:13] VITALS: BP 123/77
--- NOTE | 2020-01-27 11:21 | PDOC ---
[facility] PROGRESS NOTE Chief Complaint Chief Complaint 1. Patchy left mid and bibasilar opacities,C/W COVID-19 viral pneumonia. 2. ACUTE HYPOXIC RESP FAILURE status post extubation on 01/26/2020 3. COVID-19 POS AG 4. HX ASTHMA 5. History of hysterectomy 6. Overweight 7. Mild transaminitis 8. Borderline diabetic History of Present Illness History of Present Illness 01-27-2020 Patient seen and examined on the Covid-19 unit She was extubated a day or 2 ago More alert she was encephalopathic yesterday Still short of breath on oxygen per nasal cannula Her right pupil is a little larger than the left I suspect this will get better with time Complains of a mild rash on her forearms it does not look bad to me Chart reviewed Discussed with RN Prognosis guarded but she is improving dramatically Vitals/I&O Vitals/I&O: Vital Signs Date Time Temp Pulse Resp B/P (MAP) Pulse Ox O2 Delivery O2 Flow Rate FiO2 01/27/20 07:45 97.8 78 24 119/69 (86) 96 Room Air 97.8 01/26/20 23:00 4.0 I & O 01/26/20 01/26/20 01/27/20 15:00 23:00 07:00 Intake Total 150 ml 1510 ml 270 ml Output Total 1050 ml 600 ml 1200 ml Balance -900 ml 910 ml -930 ml Physical Exam General: Alert, mild distress, Other (sedated and on the vent) Heart: Regular rate, Normal S1, No murmurs Lungs: Clear Abdomen: Normal bowel sounds, Soft, No tenderness, No hepatosplenomegaly Extremities: No cyanosis, No edema, Normal pulses Skin: No rashes, No significant lesion Labs Labs: Laboratory Tests Test 01/27/20 05:45 Sodium Level 141 mmol/L (136-145) Potassium Level 4.2 mmol/L (3.5-5.1) Chloride Level 105 mmol/L (98-107) Carbon Dioxide Level 27 mmol/L (21-32) Anion Gap 9 (6-14) Blood Urea Nitrogen 13 mg/dL (7-20) Creatinine 0.7 mg/dL (0.6-1.0) Estimated GFR (Cockcroft-Gault) 88.9 Glucose Level 104 mg/dL (70-99) Calcium Level 9.3 mg/dL (8.5-10.1) Phosphorus Level 4.3 mg/dL (2.6-4.7) Magnesium Level 2.2 mg/dL (1.8-2.4) Assessment and Plan Assessmemt and Plan Problems Medical Problems: (1) COVID-19 Status: Acute (2) Dyspnea Status: Acute 1. Patchy left mid and bibasilar opacities,C/W COVID-19 viral pneumonia. 2. ACUTE HYPOXIC RESP FAILURE status post extubation on 01/26/2020 3. COVID-19 POS AG 4. HX ASTHMA 5. History of hysterectomy 6. Overweight 7. Mild transaminitis 8. Borderline diabetic Plan: Monitor her respirations O2 per nasal cannula TPN I encouraged her to eat but she states nothing tastes right Discussed with RN Trend labs Home meds DVT prophylaxis Full code Reassess in the am Appreciate subspecialist input Prognosis guarded but again she is improving dramatically Comment Review of Relevant I have reviewed the following items augusto (where applicable) has been applied. Medications: Current Medications Medications (Trade) Dose Ordered Sig/Sophie Route PRN Reason Start Time Stop Time Status Last Admin Dose Admin Sodium Chloride 90 meq/Potassium Chloride 50 meq/ Potassium Phosphate 13.6 mmol/Magnesium Sulfate 10 meq/ Calcium Gluconate 10 meq/ Multivitamins 10 ml/Chromium/ Copper/Manganese/ Seleni/Zn 0.5 ml/ Total Parenteral Nutrition/Amino Acids/Dextrose/ Fat Emulsion Intravenous 1,512 ml @ 63 mls/hr TPN CONT IV 01/26/20 22:00 01/27/20 21:59 01/26/20 21:39 AMANDA STRATTON III DO Jan 27, 2020 11:21
[2020-01-27] MEDS: TPN PER PHARMACY MC PRN (12:02)
[2020-01-27 15:07] VITALS: BP 144/82
[2020-01-27] MEDS: ENOXAPARIN 40 MG/0.4 ML SYRINGE. SQ SCH (15:59)
[2020-01-27 19:00] VITALS: BP 97/69
[2020-01-27] MEDS ORDERED: guaiFENesin/CODEINE 100mg/10mg 5 ML LIQUID PO PRN (19:45)
[2020-01-27] MEDS: LACTOBACILLUS RHAMNOSUS GG 1 CAPSULE. PO SCH (20:53)
[2020-01-27] MEDS: LORazepam 0.5 MG TABLET PO PRN (20:53)
[2020-01-27] MEDS ORDERED: [UNRECOGNIZED DRUG - OTHER] IV SCH ×10 (22:00)
[2020-01-27] MEDS ORDERED: DEXTROSE 70% IV SCH ×10 (22:00)
[2020-01-27] MEDS ORDERED: TOTAL PARENTERAL NUTRITION IV SCH ×10 (22:00)
[2020-01-27] MEDS ORDERED: AMINO ACID IV SCH ×10 (22:00)
[2020-01-27 23:45] VITALS: BP 114/56
[2020-01-28] MEDS: guaiFENesin/CODEINE 100mg/10mg 5 ML LIQUID PO PRN ×4 (02:11→14:05)
[2020-01-28] MEDS: LORazepam 0.5 MG TABLET PO PRN (02:12)
[2020-01-28 03:35] VITALS: BP 104/54
[2020-01-28 07:00] VITALS: BP 111/60
[2020-01-28] MEDS: LACTOBACILLUS RHAMNOSUS GG 1 CAPSULE. PO SCH (08:01)
[2020-01-28 11:00] VITALS: BP 126/69
--- NOTE | 2020-01-28 13:18 | DS ---
DATE OF DISCHARGE: 01/28/2020 ADMISSION DIAGNOSES: Respiratory failure secondary to COVID-19. DISCHARGE DIAGNOSIS: Resolving respiratory failure. 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 Basically, she presented with fulminant respiratory failure. She was intubated. She was in the ICU for several days. Three days ago, we were able to get her extubated. Yesterday, she moved up to the medical floor. Today, I saw her, examined her, she is doing great. PHYSICAL EXAMINATION: HEART: Heart tones are normal. LUNGS: Clear. ABDOMEN: Soft. EXTREMITIES: No edema. NEUROLOGIC: She is alert and walking. We plan to discharge home with home health physical therapy and occupational therapy. DISPOSITION: Home with home health. ACTIVITY: As tolerated. DIET: Low sodium. MEDICATIONS: Please see the MRAD. TOTAL TIME: 38 minutes. AMANDA STRATTON DO DR: AMADEO/woody JOB#: [id number] / [id number]
--- NOTE | 2020-01-28 17:01 | PDOC ---
PULMONARY PROGRESS NOTES Subjective Patient extubated on 01 24, She feels better eating better Vitals Vital Signs Date Time Temp Pulse Resp B/P (MAP) Pulse Ox O2 Delivery O2 Flow Rate FiO2 01/28/20 11:00 97.8 94 18 126/69 (88) 92 Room Air 97.8 01/28/20 08:00 3.5 Lungs: Clear Cardiovascular: S1, S2 Abdomen: Soft Extremities: Other (Edema) Skin: Warm Labs Laboratory Tests Test 01/27/20 05:45 Sodium Level 141 mmol/L (136-145) Potassium Level 4.2 mmol/L (3.5-5.1) Chloride Level 105 mmol/L (98-107) Carbon Dioxide Level 27 mmol/L (21-32) Anion Gap 9 (6-14) Blood Urea Nitrogen 13 mg/dL (7-20) Creatinine 0.7 mg/dL (0.6-1.0) Estimated GFR (Cockcroft-Gault) 88.9 Glucose Level 104 mg/dL (70-99) Calcium Level 9.3 mg/dL (8.5-10.1) Phosphorus Level 4.3 mg/dL (2.6-4.7) Magnesium Level 2.2 mg/dL (1.8-2.4) Medications Active Scripts Medications Dose Route/Sig Max Daily Dose Days Date Category Flovent 110MCG Hfa (Fluticasone Propionate) 12 Gm Aer.w.adap 2 Puff IH BID 01/15/20 Reported Proair Hfa Inhaler (Albuterol Sulfate) 8.5 Gm Hfa.aer.ad 2 Puff IH PRN Q4-6HRS PRN 21 01/15/20 Reported Cetirizine Hcl 10 Mg Tablet 1 Tab PO DAILY 01/15/20 Reported Premarin (Estrogens, Conjugated) 0.45 Mg Tablet 1 Tab PO DAILY 01/15/20 Reported Comments CXR 01/24/2020 IMPRESSION: 1. Bilateral infiltrates have improved mildly. Impression . Acute hypoxic respiratory failure due to COVID-19 pneumonia/ ARDS- improving status post extubation Positive COVID19 Bilateral infiltrates due to COVID19 pneumonia, underlying Asthma Mild transaminitis Anxiety Plan . Discharge home, 6-minute walk today, follow-up in my office. Home PT Return to work in approximately 10 to 14 days GREGORY TSANG MD Jan 28, 2020 17:01
== END 2020-01-28 16:32 | disposition home health service (06) | DRG 207 ==
LOC: ER 13:03 → 2 SOUTH 14:56 → 1 WEST ICU 01-17 20:06 → 6 SOUTH 01-26 18:46
PROVIDERS: ADMIT Family Medicine; ATTEND Family Medicine
PROC: 5A1955Z Respiratory Ventilation, Greater than 96 Consecutive Hours (ICD-10-PCS; principal; 2020-01-17)
PROC: 0BH17EZ Insertion of Endotracheal Airway into Trachea, Via Natural or Artificial Opening (ICD-10-PCS; 2020-01-17)
PROC: 02HV33Z Insertion of Infusion Device into Superior Vena Cava, Percutaneous Approach (ICD-10-PCS; 2020-01-18)
PROC: B548ZZA Ultrasonography of Superior Vena Cava, Guidance (ICD-10-PCS; 2020-01-18)
DX: U07.1 COVID-19 (principal); J96.01 Acute respiratory failure with hypoxia; J12.89 Other viral pneumonia; J15.9 Unspecified bacterial pneumonia; G93.40 Encephalopathy, unspecified; E66.3 Overweight; F41.9 Anxiety disorder, unspecified; J45.909 Unspecified asthma, uncomplicated; R73.03 Prediabetes; Z82.49 Family history of ischemic heart disease and other diseases of the circulatory system; Z82.5 Family history of asthma and other chronic lower respiratory diseases; Z83.3 Family history of diabetes mellitus; Z90.710 Acquired absence of both cervix and uterus; Z68.37 Body mass index [BMI] 37.0-37.9, adult; Z79.899 Other long term (current) drug therapy; R21 Rash and other nonspecific skin eruption; R74.0 Nonspecific elevation of levels of transaminase and lactic acid dehydrogenase [LDH]
CPT/HCPCS: 36415; 36569; 36600; 71045; 74018; 80048; 80053; 81001; 82803; 82805; 82962; 83735; 84100; 84145; 84478; 85025; 85027; 85379; 85384; 85610; 85730; 87040; 93005; 94003; 94618; 94640; 94760; J0330; J0456; J0610; J1650; J2060; J2250; J2405; J2543; J2704; J2997; J3010; J3475; J3480; J3490; J7030; J7050; J7060; 99285-25; G0378; J7613

== ENCOUNTER → 2020-05-11 | Outpatient (CLI) | payer BC ==
[~2020-05-11] MED LIST changes: +ALBU2.5V8 IH; +CETI10TA16 PO; +ESTR0.45 PO; +FLUT10.6 IH; +FLUT12AE IH
--- NOTE | 2020-05-15 14:49 | RAD ---
DATE: 05/11/2020 2:58 PM EXAM: MAMMO [place] SCREENING BILATERAL HISTORY: Screening COMPARISON: 10/17/2018, Bilateral CC and MLO views of the breasts were performed. Bilateral breast tomosynthesis was performed in CC and MLO projections. This study was interpreted with the benefit of Computerized Aided Detection (CAD). FINDINGS: Breast Density: HETERO The breast parenchyma Is heterogeneously dense, which could reduce sensitivity of mammography. Breast parenchyma level C The left mammogram is negative. The right mammogram shows a focal asymmetry in the posterior upper outer right breast at the approximate 10:00 position 9 cm from the nipple that needs additional imaging with a full-field lateral view, spot compression, and possible targeted right breast ultrasound. IMPRESSION: Right breast focal asymmetry, findings for which additional imaging is advised. BI-RADS CATEGORY: 0 INCOMPLETE: NEEDS ADDITIONAL IMAGING EVALUATION AND/OR PRIOR MAMMOGRAMS FOR COMPARISON. RECOMMENDED FOLLOW-UP: ADD ADDITIONAL IMAGING The patient will be contacted to return for additional imaging and a supplemental report will follow. PQRS compliance statement: Patient information was entered into a reminder system with a target due date for the next mammogram. Mammography is a sensitive method for finding small breast cancers, but it does not detect them all and is not a substitute for careful clinical examination. A negative mammogram does not negate a clinically suspicious finding and should not result in delay in biopsying a clinically suspicious abnormality. "Our facility is accredited by the [employer] Mammography [employer]."
== END | disposition home or self-care (01) ==
LOC: MAMMO 14:56
PROVIDERS: ATTEND Internal Medicine
DX: Z12.31 Encounter for screening mammogram for malignant neoplasm of breast (principal)
CPT/HCPCS: 77063; 77067

== ENCOUNTER → 2020-05-29 | Outpatient (CLI) | payer BC ==
--- NOTE | 2020-05-29 17:01 | RAD ---
DATE: 05/29/2020 9:23 AM EXAM: DIGITAL DIAGNOSTIC RT, BREAST RIGHT HISTORY: 49-year-old woman recalled from screening for focal asymmetry in the upper outer right breast. COMPARISON: 05/11/2020, 10/17/2018 Technique: Full-field right ML view with reviewed with computer-aided detection as well as spot compression views of the right breast in the CC and MLO projections were obtained after which targeted ultrasound of the upper-outer quadrant right breast was performed. FINDINGS: Breast Density: HETERO The breast parenchyma Is heterogeneously dense, which could reduce sensitivity of mammography. Breast parenchyma level C The questioned asymmetry changed in configuration in a pattern compatible with dense fibroglandular tissue. Targeted ultrasound of the upper-outer quadrant right breast and axilla revealed no suspicious sonographic findings.. IMPRESSION: No mammographic evidence of malignancy. BI-RADS CATEGORY: 1 NEGATIVE RECOMMENDED FOLLOW-UP: 12M 12 MONTH FOLLOW-UP Annual screening mammography is recommended, unless clinically indicated sooner based on symptoms or change in physical exam. Discussed the findings and recommendations with the patient at her request prior to her discharge from the imaging suite. I encouraged her to maintain self breast awareness and to promptly report any new or changing symptoms to her referring physician. PQRS compliance statement: Patient information was entered into a reminder system with a target due date for the next mammogram. Mammography is a sensitive method for finding small breast cancers, but it does not detect them all and is not a substitute for careful clinical examination. A negative mammogram does not negate a clinically suspicious finding and should not result in delay in biopsying a clinically suspicious abnormality. "Our facility is accredited by the [employer] Mammography Program."
== END | disposition home or self-care (01) ==
LOC: MAMMO 09:13
PROVIDERS: ATTEND Internal Medicine
DX: R92.8 Other abnormal and inconclusive findings on diagnostic imaging of breast (principal)
CPT/HCPCS: 76641; 77065

== ENCOUNTER → 2020-06-20 | Outpatient (CLI) | payer BC ==
--- NOTE | 2020-06-20 12:05 | RESP ---
DATE OF SERVICE: 06/20/2020 ATTENDING PHYSICIAN: Aidan Dumont MD The patient's FVC was 2.58, which is 78% predicted; FEV1 2.02, which is 77% predicted, FEF 25-75 was 69% predicted. The FEV1/FVC ratio was normal. The patient had 10% improvement in FVC and 15% improvement in FEV1 post-bronchodilator. Total lung capacity was 126% predicted, residual volume 216% predicted. Diffusion capacity was normal. IMPRESSION: 1. Spirometry findings suggestive of small airway dysfunction. 2. Good response to bronchodilators. 3. Lung volumes consistent with air trapping and hyperinflation. 4. Normal diffusion capacity. АЛЕКСАНДР SCHULTZ MD DR: DAVIE/woody JOB#: [id number] / [id number] AIDAN oPlo MD
== END | disposition home or self-care (01) ==
LOC: PF 08:52
PROVIDERS: ATTEND Internal Medicine
DX: R06.09 Other forms of dyspnea (principal)
CPT/HCPCS: 94060; 94726; 94729

== ENCOUNTER → 2020-12-08 | Outpatient (CLI) | payer BC ==
--- NOTE | 2020-12-10 15:38 | CARD ---
MR#: [id number] Date of Study: 12/08/2020 Ordering Physician: AIDAN OWUSU, Referring Physician: AIDAN OWUSU, Tech: Hillary Sow, [facility] APPROVED REPORT EXAM: Two-dimensional and M-mode echocardiogram with Doppler and color Doppler. Other Information Quality : GoodHR: 72bpm INDICATION Edema, Dyspnea RISK FACTORS Asthma 2D DIMENSIONS Left Atrium(2D)3.4 (1.6-4.0cm)IVSd1.1 (0.7-1.1cm) Aortic Root(2D)2.5 (2.0-3.7cm)LVDd4.6 (3.9-5.9cm) LVOT Diameter1.9 (1.8-2.4cm)PWd0.9 (0.7-1.1cm) LVDs2.8 (2.5-4.0cm)FS (%) 38.9 % SV67.3 mlLVEF(%)60.4 (>50%) Aortic Valve AoV Peak Leonidas.165.5cm/sAoV VTI34.0cm AO Peak GR.11.0mmHgLVOT Peak Leonidas.117.9cm/s LVOT VTI 24.32cmAO Mean GR.6mmHg PHYLLIS (VMAX)1.32xh8OCE (VTI)2.02cm2 Mitral Valve MV E Nkkbzsdw06.1cm/sMV DECEL IIVE268rg MV A Ieleiqkq01.4cm/sMV BWT34xw E/A Ratio1.6MVA (PHT)4.47cm2 TDI E/Lateral E'7.1E/Medial E'12.6 Pulmonary Valve PV Peak Ihpamkny543.8cm/sPV Peak Grad.5mmHg Tricuspid Valve TR P. Mutqmfpu401kd/sRAP TFKXSTTA6trHs TR Peak Gr.87otDtPQWQ60rvCx Pulmonary Vein S1 Dkryhpoh52.5cm/sD2 Irhnjqet37.0cm/s PVa [id number] LEFT VENTRICLE The left ventricle is normal size. There is borderline concentric left ventricular hypertrophy. The l eft ventricular systolic function is normal and the ejection fraction is within normal range. The Eje ction Fraction is 55-60%. There is normal LV segmental wall motion. Transmitral Doppler flow pattern is Grade II-pseudonormal filling dynamics. RIGHT VENTRICLE The right ventricle is normal size. There is normal right ventricular wall thickness. The right ventr icular systolic function is normal. ATRIA The left atrium size is normal. The right atrium size is normal. The interatrial septum is intact wit h no evidence for an atrial septal defect or patent foramen ovale as noted on 2-D or Doppler imaging. AORTIC VALVE The aortic valve is normal in structure and function. Doppler and Color Flow revealed no significant aortic regurgitation. There is no significant aortic valvular stenosis. Calculated aortic valve area is 1.86 cm2 with maximum pressure gradient of 13 mmHg and mean pressure gradient of 7 mmHg. MITRAL VALVE The mitral valve is normal in structure and function. There is no evidence of mitral valve prolapse. There is no mitral valve stenosis. Doppler and Color-flow revealed trace mitral regurgitation. TRICUSPID VALVE The tricuspid valve is normal in structure and function. Doppler and Color Flow revealed trace tricus pid regurgitation with an estimated PAP of 30 mmHg. There is no tricuspid valve stenosis. PULMONIC VALVE The pulmonary valve is normal in structure and function. Doppler and Color Flow revealed no pulmonic valvular regurgitation. GREAT VESSELS The aortic root is normal in size. The IVC is normal in size and collapses >50% with inspiration. PERICARDIAL EFFUSION There is no evidence of significant pericardial effusion. Critical Notification Critical Value: No <Conclusion> The left ventricle is normal size. The left ventricular systolic function is normal and the ejection fraction is within normal range. The Ejection Fraction is 55-60%. There is normal LV segmental wall motion. There is borderline concentric left ventricular hypertrophy. Doppler and Color Flow revealed no significant aortic regurgitation. There is no significant aortic valvular stenosis. Doppler and Color-flow revealed trace mitral regurgitation. Doppler and Color Flow revealed trace tricuspid regurgitation with an estimated PAP of 30 mmHg. Signed by : Sacha Dietrich MD Electronically Approved : 12/10/2020 15:38:06
== END ==
LOC: ECHO 15:43
PROVIDERS: ATTEND Internal Medicine
DX: R06.02 Shortness of breath (principal); M79.89 Other specified soft tissue disorders
CPT/HCPCS: 93306